=== PATIENT | female | born 1940 | race Caucasian/White ===

== ENCOUNTER 2024-08-27 13:57 | Outpatient (OUT) | payer MEDICARE, BC, SELFPAY ==
--- OUTSIDE RECORDS SUMMARY | 2024-06-05 09:15 | XMS_ITS | Continuity of Care Document ---
Author Organization [facility] Address [address] [place] [address] Phone Care Team Providers Care Special Certificate Dictator Name Role Phone Ravi Dewey MD Unavailable [...] Yes / No Effective Date File Name No Information Encounters Encounter Description Practice Location Reason(s) For Visit Diagnoses Date Provider Providers Copied on Encounter Established Patient Visit [facility], [address] [place] [address], [id number], tel:[phone] DANYA Davalos Low back pain, unspecifiedPa in in right hipTrochanter ic bursitis, right hip May- 5 Maco Rodrigues. [address] [place] [address], [id number], [place]. tel:[phone] Referring Provider: Ravi Moody, [address] [place] [address], [id number]. tel:[phone] Established Patient Visit Detailed [facility], [address] [place] [address], [id number], tel:[phone] DANYA Davalos Lumbar painTrochante ayana bursitis, right hip Mar- 4 Maco Rodrigues. [address] [place] [address], [id number], [place]. tel:[phone] Referring Provider: Ravi Moody, [address] [place] [address], [address]. tel:[phone] Established Patient Visit Detailed [facility], [address] [place] [address], [id number], tel:[phone] DANYA Davalos Low back painTrochante ayana bursitis, right hipLow back pain, unspecified Sep-0 4 Maco Rodrigues. [address] [place] [address], [address] [place] [address], . tel:[phone] Referring Provider: Ravi Moody, [address] [place] [address], [address]. tel:[phone] Established Patient Visit Detailed [facility], [address] [place] [address], [address] [place] [address], tel:[phone] [facility] Lumbar painDietary counseling and surveillanceE ssential (primary) hypertensionT rochanteric bursitis, right hipLow back pain Jul- 4 Maco Rodrigues. [address] [place] [address], [address] [place] [address], . tel:[phone] Referring Provider: Saúl Saravia, [address] [place] [address], [address]. tel:[phone] [facility], [address] [place] [address], [address] [place] [address], tel:[phone] [facility] No Information 4 Efren Hays. [address] [place] [address], [address] [place] [address], . tel:[phone] Referring Provider: Ravi Moody, [address] [place] [address], [address]. tel:[phone] Established Patient Visit Detailed [facility], [address] [place] [address], [address] [place] [address], tel:[phone] [facility] Lumbar painDietary counseling and surveillanceE ssential (primary) hypertension Fe- 4 Maco Rodrigues. [address] [place] [address], [address] [place] [address], . tel:[phone] Referring Provider: Ravi Moody, [address] [place] [address], [id number]. tel:[phone] [facility], [address] [place] [address], [address] [place] [address], tel:[phone] [facility] No Information 4 Ayanna Hernán. [address] [place] [address], [address] [place] [address], . tel:[phone] Referring Provider: Attila Saravia, [address] [place] [address], [address]. tel:[phone] Established Patient Visit Detailed [facility], [address] [place] [address], [address] [place] [address], tel:[phone] [facility] Dietary counseling and surveillanceP ain in right hipEssential (primary) hypertensionL ow back painDegenerat matthew disc disease, lumbar 4 Don Aiken. [address] [place] [address], [address] [place] [address], . tel:[phone] Referring Provider: Attila Saravia, [address] [place] [address], [id number]. tel:[phone] [facility], [address] [place] [address], [address] [place] [address], tel:[phone] [facility] Closed nondisplaced fracture of fifth metatarsal bone of right foot with routine healing 3 Steven Noyola. [address] [place] [address], [address] [place] [address], . tel:[phone] Referring Provider: Dennys Sanabria, [address] [place] [address], [id number]. tel:[phone] [facility], [address] [place] [address], [address] [place] [address], tel:[phone] [facility] Nondisplaced fracture of fifth metatarsal bone, right foot, subsequent encounter for fracture with routine healing 3 Steven Noyola. [address] [place] [address], [address] [place] [address], [place]. tel:[phone] Referring Provider: Dennys Sanabria, [address] [place] [address], [address]. 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 [address] [place] [address], [id number], [place]. tel:[phone] Referring Provider: Dennys Sanabria, [address] [place] [address], [address]. 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 [address] [place] [address], [facility], . tel:[phone] Referring Provider: Марина Sorto, [address] [place] [address], [address]. 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 [address] [place] [address], [facility], . tel:[phone] Referring Provider: Марина Sorto, [address] [place] [address], [address]. 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 [address] [place] [address], [facility], . tel:[phone] Referring Provider: Марина Sorto, [address] [place] [address], [address]. 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 [address] [place] [address], [facility], . tel:[phone] Referring Provider: Марина Sorto, [address] [place] [address], [address]. 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 [address] [place] [address], [id number], [place]. tel:[phone] Referring Provider: Марина Sorto, [address] [place] [address], [address]. 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 [address] [place] [address], [id number], [place]. tel:[phone] Referring Provider: Joel Panchal, [address] [place] [address], [address]. tel:[phone] [facility], [address] [place] [address], [address] [place] [address], tel:[phone] DANYA Davalos Posterior tibial tendinitis, right leg 2 Ayah Maldonado. [address] [place] [address], [address] [place] [address], . tel:[phone] Referring Provider: Joel Panchal, [address] [place] [address], [address]. tel:[phone] New Patient Office Visit Detailed [facility], [address] [place] [address], [address] [place] [address], tel:[phone] DANYA [place] Dietary counseling and surveillanceE ssential (primary) hypertensionB ilateral ankle pain, unspecified chronicityPos terior tibialis tendinitis of both lower extremitiesPo sterior tibial tendinitis, left leg 2 Ayah Maldonado. [address] [place] [address], [id number], . tel:[phone] Referring Provider: Joel Panchal, [address] [place] [address], [address]. tel:[phone] Family History Family Member Type Diagnosis Age At Onset No Information Payers Payer name Insurance type Covered libertarian ID Authoriza tishira(s) Medicare [place] MB [id number] [place] - [id number] Social History Type Description Quantity Date Captured Comments Sex Female Smoking Status No Information Vital Signs Date / Time: Height Weight [...] Plan Of Treatment Date Type Action Status Appointment Erica Lopez BOOKED Future Order: Radiology Order X- Ray Lumbar Spine (5) ([id number]), Sent on: Sent Future Order: Radiology Order MR I Lumbar Spine W/O Contrast ([id number]), Sent on: Sent Future Order: Radiology Order X- Ray Pelvis And Lateral Hip ([id number]), Sent on: Sent Future Order: Radiology Order X- Ray Foot (3) ([id number]), Sent on: Sent Future Order: Radiology Order X- Ray Foot (3) ([id number]), Sent on: Sent Future Order: Radiology Order X- Ray Foot (3) ([id number]), Sent on: Sent Future Order: Radiology Order X- Ray Pelvis (1-2) ([id number]), Sent on: Sent Future Order: Radiology Order X- Ray Lumbar Spine (2) (3) ([id number]), Sent on: Sent Future Order: Radiology Order X- Ray Ankle (3) Standing ([id number]), Sent on: Sent Future Order: Radiology Order X- Ray Foot (3) Standing ([id number]), Sent on: Sent History Of Present Illness [...] No Information Instructions Date Instruction Additional Infor mation No Information Assessments Type Assessment Date assessment Low back pain, unspecified assessment Pain in right hip assessment Trochanteric bursitis, right hip Patient Care Teams Name Effective Dates (start - stop) Status Members No Information
--- OUTSIDE RECORDS SUMMARY | 2024-08-27 14:00 | XMS_ITS | Clinical Summary ---
Author Organization [facility] Address [address] [place] [address] Phone Care Team Providers Care Nozzle Cement Sprayer Helper Name Role Phone Leanna Quiroz MD Primary Care Provider + Allergies Active Allergy Reactions Criticality Noted Date Comments Morphine Dizziness,Nausea/vomiting 07/25/2024 Medications busPIRone (Buspar) 10 mg tablet Take 1 tablet (10 mg) by mouth 2 times a day. Active losartan (Cozaar) 50 mg tablet Take 1 tablet (50 mg) by mouth 2 times a day. Active levothyroxine (Synthroid, Levoxyl) 100 mcg tablet Take 1 tablet (100 mcg) by mouth early in the morning.. Take on an empty stomach at the same time each day, either 30 to 60 minutes prior to breakfast Active NIFEdipine ER (NIFEdipine XL) 60 mg 24 hr tablet Take 1 tablet (60 mg) by mouth once daily in the morning. Take before meals. Do not crush, chew, or split. Active PARoxetine (Paxil) 20 mg tablet Take 1 tablet (20 mg) by mouth once daily in the morning. Active propranolol XL (Innopran XL) 120 mg 24 hr capsule Take 1 capsule (120 mg) by mouth 2 times a day. Do not crush, chew, or split. Active acetaminophen (Tylenol) 325 mg tablet Take by mouth every 6 hours if needed for mild pain (1 - 3). Active vit C/E/Zn/coppr/elsie tein/zeaxan (PRESERVISION AREDS-2 ORAL) Take by mouth. Active ascorbic acid (Vitamin C) 500 mg tablet Take 1 tablet (500 mg) by mouth once daily. Active cholecalciferol (Vitamin D3) 25 mcg (1,000 units) tablet Take 1 tablet (25 mcg) by mouth once daily. Active polyethylene glycol (Glycolax, Miralax) 17 gram packet Take 17 g by mouth once daily. Active multivitamin tablet Take 1 tablet by mouth once daily. Active HYDROcodone-germán taminophen ([place]) 5-325 mg tablet Take 1 tablet by mouth 2 times a day as needed for severe pain (7 - 10). Active gabapentin (Neurontin) 100 mg capsuleIndicati ons:Right sided sciatica Take 1 capsule (100 mg) by mouth 2 times a day. 60 capsule 1 5 01/26/20 25 Active gabapentin (Neurontin) 100 mg capsuleIndicati ons:Right sided sciatica Take 2 capsules (200 mg) by mouth 3 times a day. 180 capsule 5 5 02/03/20 25 Active diazePAM (Valium) 10 mg tabletIndicatio ns:Anxiety Take 1 tablet (10 mg) by mouth once daily. 90 tablet 5 Active diazePAM (Valium) 10 mg tablet Take 1 tablet (10 mg) by mouth once daily. 08/27/19 25 Discontinu ed(Reorder ) Active Problems Problem Noted Date Diagnosed Date Primary hypertension 07/25/2024 Anxiety 07/25/2024 Grief reaction 07/25/2024 Postoperative hypothyroidism 07/25/2024 Motion sickness 07/25/2024 Encounters Date Type Department Care Team Description 08/26/2024 Orders Only [facility] [address] [phone] Leanna Quiroz MD 08/26/2024 Orders Only [facility] [address] [phone] Chelle Youssef MA Anxiety (Primary Dx) 08/06/2024 Orders Only [facility] [address] [phone] Michelle Anaya MA Right sided sciatica 07/29/2024 Orders Only [facility] [address] [place] [phone] Leanna Quiroz MD Right sided sciatica (Primary Dx) 07/25/2024 9:30 AM EDT Office Visit [facility] [address] [phone] Leanna Quiroz MD Right sided sciatica (Primary Dx); Primary hypertension; Postoperative hypothyroidism; Anxiety; Grief reaction; Hyperglycemia; Right hip pain; Medication management 07/25/2024 Travel from Last 3 Months Social History Tobacco Use Types Packs/Day Years Used Date Smoking Tobacco: Never Smokeless Tobacco: Never Alcohol Use Standard Drinks/Week Comments Never 0 (1 standard drink = 0.6 oz pur e alcohol) PHQ-2 Answer Date Recorded Patient Health Questionnaire-2 Score 3 07/25/2024 Comments No Sex and Gender Information Value Date Recorded Sex Assigned at Not on file Legal Sex Female 11:21 AM EST Gender Identity Not on file Sexual Orientation Not on file Last Filed Vital Signs Vital Sign Reading Time Taken Comments Blood Pressure 122/66 07/25/2024 9:42 AM EDT Pulse 64 07/25/2024 9:42 AM EDT Temperature 36.3 C (97.4 F) 07/25/2024 9:42 AM EDT Respiratory Rate 16 07/25/2024 9:42 AM EDT Oxygen Saturation 94% 07/25/2024 9:42 AM EDT Inhaled Oxygen Concentration - - Weight 77.1 kg (170 lb) 07/25/2024 9:42 AM EDT Height 156.2 cm (5' 1.5 ) 07/25/2024 9:42 AM EDT Body Mass Index 31.6 07/25/2024 9:42 AM EDT Plan of Treatment Upcoming Encounters Date Type Department Care Team (Late st Contact Info) Description 11/03/2024 11:15 AM EDT Office Visit [facility] [address] [phone] Leanna Quiroz MD [address] [place] [phone] Health Maintenance Due Date Last Done Comments Bone Density Scan 1940 Medicare Annual Wellness Vis it (AWV) 1940 DTaP/Tdap/Td Vaccines (1 - Tdap) 1960 Pneumococcal Vaccine (1 of 1 - PCV) 1988 Zoster Vaccines (1 of 2) 1988 RSV High Risk: (Elderly (60+ ) or Population) (1 - 1-dose 75+ series) 2013 COVID-19 Vaccine ( - 2023-2 5 season) 2023 Influenza Vaccine (Season Ended) 2024 Diabetes: Hemoglobin A1C 07/25/2025 07/25/2024 TSH Level 07/25/2025 07/25/2024 Lipid Panel 07/25/2029 07/25/2024 HIB Vaccines Aged Out No longer eligi ble based on patient's age to complete this topic HPV Vaccines Aged Out No longer eligi ble based on patient's age to complete this topic Hepatitis A Vaccines Aged Out No long er eligible based on patient's age to complete this topic Hepatitis B Vaccines Aged Out No long er eligible based on patient's age to complete this topic IPV Vaccines Aged Out No longer eligi ble based on patient's age to complete this topic Meningococcal Vaccine Aged Out No gunjan flavio eligible based on patient's age to complete this topic Rotavirus Vaccines Aged Out No longer eligible based on patient's age to complete this topic Procedures Procedure Name Priority Date/Time Associated Diagnosis Comments THYROXINE, FREE Routine 07/25/2024 12:25 PM EDT Primary hypertension Postoperative hypothyroidism Anxiety Grief reaction Right sided sciatica TSH Routine 07/25/2024 12:25 PM EDT Primary hypertension Postoperative hypothyroidism Anxiety Grief reaction Right sided sciatica LIPID PANEL Routine 07/25/2024 12:25 PM EDT Primary hypertension Postoperative hypothyroidism Anxiety Grief reaction Right sided sciatica HEMOGLOBIN A1C Routine 07/25/2024 12:25 PM EDT Primary hypertension Postoperative hypothyroidism Anxiety Grief reaction Right sided sciatica Hyperglycemia CBC WITH AUTO DIFFERENTIAL Routine 07/25/2024 12:25 PM EDT Primary hypertension Postoperative hypothyroidism Anxiety Grief reaction Right sided sciatica COMPREHENSIVE METABOLIC PANEL Routine 07/25/2024 12:25 PM EDT Primary hypertension Postoperative hypothyroidism Anxiety Grief reaction Right sided sciatica DRUG SCREEN, URINE WITH REFLEX TO CONFIRMATION Routine 07/25/2024 12:22 PM EDT Right sided sciatica Medication management from Last 3 Months Results * (ABNORMAL) CBC and Auto Differential (07/25/2024 12:25 PM EDT) WHITE BLOOD CELL COUNT 8.5 3.8 - 10.8 Thousand/ uL [facility] RED BLOOD CELL COUNT 3.99 3.80 - 5.10 Million/u L [facility] HEMOGLOBIN 13.2 11.7 - 15.5 g/dL [facility] HEMATOCRIT 40.4 35.0 - 45.0 % [facility] MCV 101.3(H) 80.0 - 100.0 fL [facility] MCH 33.1(H) 27.0 - 33.0 pg [facility] MCHC 32.7 32.0 - 36.0 g/dL [facility] Comment: For adults, a slight decrease in the calculated MCHC value (in the range of 30 to 32 g/dL) is most likely not clinically significant; however, it should be interpreted with caution in correlation with other red cell parameters and the patient's clinical condition. RDW 13.0 11.0 - 15.0 % [facility] PLATELET COUNT 378 140 - 400 Thousand/ uL [facility] MPV 9.9 7.5 - 12.5 fL [facility] ABSOLUTE NEUTROPHILS 5,491 1,500 - 7,800 cells/uL [facility] ABSOLUTE LYMPHOCYTES 2,074 850 - 3,900 cells/uL [facility] ABSOLUTE MONOCYTES 816 200 - 950 cells/uL [facility] ABSOLUTE EOSINOPHILS 102 15 - 500 cells/uL [facility] ABSOLUTE BASOPHILS 17 0 - 200 cells/uL [facility] NEUTROPHILS 64.6 % [facility] LYMPHOCYTES 24.4 % [facility] MONOCYTES 9.6 % [facility] EOSINOPHILS 1.2 % [facility] BASOPHILS 0.2 % [facility] Blood Venous blood specimen / Unknown 07/25/2024 12:25 PM EDT 07/25/2024 12:26 PM EDT [facility] [facility] - 07/26/2024 7:53 AM EDT FASTING:NO FASTING: NO Leanna Quiroz MD LAB BLOOD ORDERABLES Fin al Result Performing Organization Address [facility] Co de Phone Number [facility] [address], [address] [place] [phone] * Thyroid Stimulating Hormone (07/25/2024 12:25 PM EDT) TSH 0.61 0.40 - 4.50 mIU/L [facility] Blood Venous blood specimen / Unknown 07/25/2024 12:25 PM EDT 07/25/2024 12:26 PM EDT [facility] [employer] [facility] - 07/26/2024 7:53 AM EDT FASTING:NO FASTING: NO Leanna Quiroz MD LAB BLOOD ORDERABLES Fin al Result [facility] [address], [address] [place] [phone] * Thyroxine, Free (07/25/2024 12:25 PM EDT) T4, FREE 1.2 0.8 - 1.8 ng/dL [facility] Blood Venous blood specimen / Unknown 07/25/2024 12:25 PM EDT 07/25/2024 12:26 PM EDT [facility] - 07/26/2024 7:53 AM EDT FASTING:NO FASTING: NO Leanna Quiroz MD LAB BLOOD ORDERABLES Fin al Result [facility] [address] [place] [address], [address] [place] [phone] * (ABNORMAL) Hemoglobin A1C (07/25/2024 12:25 PM EDT) HEMOGLOBIN A1c 5.9(H) <5.7 % [facility] Comment: For someone without known diabetes, a hemoglobin A1c value between 5.7% and 6.4% is consistent with prediabetes and should be confirmed with a follow-up test. For someone with known diabetes, a value <7% indicates that their diabetes is well controlled. A1c targets should be individualized based on duration of diabetes, age, comorbid conditions, and other considerations. This assay result is consistent with an increased risk of diabetes. Currently, no consensus exists regarding use of hemoglobin A1c for diagnosis of diabetes for children. eAG (mg/dL) 123 mg/dL [facility] eAG (mmol/L) 6.8 mmol/L [facility] Blood Venous blood specimen / Unknown 07/25/2024 12:25 PM EDT 07/25/2024 12:26 PM EDT [facility] - 07/26/2024 7:53 AM EDT FASTING:NO FASTING: NO Leanna Quiroz MD LAB BLOOD ORDERABLES Fin al Result [facility] [employer] ([email or web address])[facility] [address], [address] [place] [address] * (ABNORMAL) Lipid Panel (07/25/2024 12:25 PM EDT) CHOLESTEROL, TOTAL 178 <200 mg/dL [facility] HDL CHOLESTEROL 40(L) > OR = 50 mg/dL [facility] TRIGLYCERIDES 283(H) <150 mg/dL [facility] Comment: If a non-fasting specimen was collected, consider repeat triglyceride testing on a fasting specimen if clinically indicated. Kiesha et al. J. of Clin. Lipidol. 2015;9:129-169. LDL-CHOLESTEROL 98 mg/dL (calc) [facility] Comment: Reference range: <100 Desirable range <100 mg/dL for primary prevention; <70 mg/dL for patients with CHD or diabetic patients with > or = 2 CHD risk factors. LDL-C is now calculated using the New calculation, which is a validated novel method providing better accuracy than the Friedewald equation in the estimation of LDL-C. Jesse SS et al. NINFA. 2013;310(19): 7143-0039 (http://education.[employer]/faq/RSW285) CHOL/HDLC RATIO 4.5 <5.0 (calc) [facility] NON HDL CHOLESTEROL 138(H) <130 mg/dL (calc) [facility] Comment: For patients with diabetes plus 1 major ASCVD risk factor, treating to a non-HDL-C goal of <100 mg/dL (LDL-C of <70 mg/dL) is considered a therapeutic option. Blood Venous blood specimen / Unknown 07/25/2024 12:25 PM EDT 07/25/2024 12:26 PM EDT Narrative [facility] - 07/26/2024 7:53 AM EDT FASTING:NO FASTING: NO us Leanna Quiroz MD LAB BLOOD ORDERABLES Fin al Result [address], [address] [place] [phone] * (ABNORMAL) Comprehensive Metabolic Panel (07/25/2024 12:25 PM EDT) [facility] GLUCOSE 104 65 - 139 mg/dL [facility] Comment: Non-fasting reference interval For someone without known diabetes, a glucose value between 100 and 125 mg/dL is consistent with prediabetes and should be confirmed with a follow-up test. UREA NITROGEN (BUN) 22 7 - 25 mg/dL [facility] CREATININE 1.00(H) 0.60 - 0.95 mg/dL [facility] EGFR 55(L) > OR = 60 mL/min/1. 73m2 [facility] SODIUM 138 135 - 146 mmol/L [facility] POTASSIUM 5.1 3.5 - 5.3 mmol/L [facility] CHLORIDE 100 98 - 110 mmol/L [facility] CARBON DIOXIDE 31 20 - 32 mmol/L [facility] ELECTROLYTE BALANCE 7 7 - 17 mmol/L (calc) [facility] CALCIUM 10.1 8.6 - 10.4 mg/dL [facility] PROTEIN, TOTAL 6.7 6.1 - 8.1 g/dL [facility] ALBUMIN 4.4 3.6 - 5.1 g/dL [facility] BILIRUBIN, TOTAL 0.4 0.2 - 1.2 mg/dL [facility] ALKALINE PHOSPHATASE 87 37 - 153 U/L [facility] AST 17 10 - 35 U/L [facility] ALT 23 6 - 29 U/L [facility] Blood Venous blood specimen / Unknown 07/25/2024 12:25 PM EDT 07/25/2024 12:26 PM EDT Narrative [facility] - 07/26/2024 7:53 AM EDT FASTING:NO FASTING: NO us Leanna Quiroz MD LAB BLOOD ORDERABLES Fin al Result [facility] [address] [facility], [address] [place] [phone] * (ABNORMAL) Drug Screen, Urine With Reflex to Confirmation (07/25/2024 12:22 PM EDT) Fentanyl NEGATIVE <0.5 ng/mL [facility] Amphetamines NEGATIVE <500 ng/mL [facility] Barbiturates NEGATIVE <300 ng/mL [facility] Benzodiazepines POSITIVE(A ) <100 ng/mL [facility] Alphahydroxyalprazolam NEGATIVE <25 ng/mL [facility] Alphahydroxymidazolam NEGATIVE <50 ng/mL [facility] Alphahydroxytriazolam NEGATIVE <50 ng/mL [facility] Aminoclonazepam NEGATIVE <25 ng/mL [facility] Hydroxyethylflurazepam NEGATIVE <50 ng/mL [facility] Lorazepam NEGATIVE <50 ng/mL [facility] Nordiazepam 460(H) <50 ng/mL [facility] Oxazepam 599(H) <50 ng/mL [facility] Temazepam 653(H) <50 ng/mL [facility] Benzodiazepines Comments [facility] Comment:See Benzodiazepines Notes, LDT Notes Cocaine Metabolite NEGATIVE <150 ng/mL [facility] Marijuana Metabolite NEGATIVE <20 ng/mL [facility] Methadone Metabolite NEGATIVE <100 ng/mL [facility] Opiates POSITIVE(A ) <100 ng/mL [facility] Codeine NEGATIVE <50 ng/mL [facility] Hydrocodone 146(H) <50 ng/mL [facility] Hydromorphone NEGATIVE <50 ng/mL [facility] Morphine NEGATIVE <50 ng/mL [facility] Norhydrocodone 301(H) <50 ng/mL [facility] Opiates Comments [facility] Comment:See Opiates Notes, L DT Notes Oxycodone NEGATIVE <100 ng/mL [facility] Phencyclidine NEGATIVE <25 ng/mL [facility] Creatinine 30.8 > or = 20.0 mg/dL [facility] pH 6.8 4.5 - 9.0 [facility] Oxidant NEGATIVE <200 mcg/mL [facility] Notes and Comments Q [facility] Comment: This drug testing is for medical treatment only. Analysis was performed as non-forensic testing and these results should be used only by healthcare providers to render diagnosis or treatment, or to monitor progress of medical conditions. Benzodiazepines Notes: Nordiazepam, Temazepam, Oxazepam detected is consistent with the use of the drug Diazepam. Temazepam can be a prescribed drug. Nordiazepam is also a metabolite of Chlordiazepoxide and Clorazepate. Oxazepam can be a prescribed drug and is also a metabolite of Chlordiazepoxide, Clorazepate and Temazepam. Nordiazepam, Oxazepam detected is consistent with the use of the drug Chlordiazepoxide. Nordiazepam is a also metabolite of Diazepam and Clorazepate. Oxazepam can be a prescribed drug and is also a metabolite of Diazepam and Temazepam. Temazepam, Oxazepam detected is consistent with the use of the drug Temazepam. Temazepam can be a prescribed drug and is also a metabolite of Diazepam. Oxazepam can be a prescribed drug and also a metabolite of Diazepam, Chlordiazepoxide, Clorazepate and Temazepam. Oxazepam detected is consistent with the use of the drug Oxazepam. Oxazepam can be a prescribed drug and is also a metabolite of Diazepam, Chlordiazepoxide, Clorazepate and Temazepam. Opiates Notes: Hydrocodone, Norhydrocodone detected is consistent with the use of the drug Hydrocodone. The metabolite Hydromorphone is not present at or above the cutoff. LDT Notes: Confirmation tests were developed and their analytical performance characteristics have been determined by [employer]. It has not been cleared or approved by the FDA. This assay has been validated pursuant to the CLIA regulations and is used for clinical purposes. Healthcare Providers needing Interpretation assistance, please contact us at [phone] ( ) M-F, 8am to 10pm EST Urine Urine specimen / Unknown 07/25/2024 12:22 PM EDT 07/26/2024 2:31 AM EDT us Leanna Quiroz MD LAB URINE ORDERABLES [facility] al Result [facility] [employer] [facility], [address] [place] [phone] from Last 3 Months Insurance MEDICARE PART A AND B MEDICARE PART A AND B Care Teams Nozzle Cement Sprayer Helper Relationship Specialty Start Date End Date Leanna Quiroz MD [address] [phone] PCP - General Family Medicine 05/19/24
--- OUTSIDE RECORDS SUMMARY | 2024-08-27 14:01 | XMS_ITS | Encounter Summary ---
Author Organization [facility] Address [address] [place] [address] Phone Care Team Providers Care Hop Farm Worker Name Role Phone Leanna Quiroz MD Primary Care Provider + Encounter Details Date Type Department Care Team (Late st Contact Info) Description 08/26/2024 Orders Only [facility] [address] [phone] Chelle Youssef MA Anxiety (Primary Dx) Social History Tobacco Use Types Packs/Day Years [...] on file Sexual Orientation Not on file documented as of this encounter Plan of Treatment Upcoming Encounters Date Type Department Care Team (Late st Contact Info) Description 11/03/2024 11:15 AM EDT Office Visit [facility] [address] [phone] Leanna Quiroz MD [address] [phone] documented as of this encounter Visit Diagnoses Diagnosis Anxiety- Primary Anxiety state, unspecified documented in this encounter Additional Health Concerns Assessment Noted Time A fall risk assessment has been complete d for the patient 07/25/2024 9:37 AM EDT documented as of this encounter Care Teams Hop Farm Worker Relationship Specialty Start Date End Date Leanna Quiroz MD [address] [phone] PCP - General Family Medicine 05/19/24 documented as of this encounter
--- OUTSIDE RECORDS SUMMARY | 2024-08-27 14:01 | XMS_ITS | Encounter Summary ---
Author Organization [facility] Address [address] [place] [address] Phone Care Team Providers Care Cyber Security Systems Engineer Name Role Phone Leanna Quiroz MD Primary Care Provider + Encounter Details Date Type Department Care Team (Late st Contact Info) Description 08/26/2024 Orders Only [facility] [address] [place] [phone] Leanna Quiroz MD [address] [place] [phone] Social History Tobacco Use Types Packs/Day Years [...] Description 11/03/2024 11:15 AM EDT Office Visit [facility] [address] [place] [phone] Leanna Quiroz MD [address] [place] [phone] documented as of this encounter Visit Diagnoses Not on filedocumented in this encounter Additional Health Concerns Assessment Noted Time A fall risk assessment has been complete d for the patient 07/25/2024 9:37 AM EDT documented as of this encounter Care Teams Cyber Security Systems Engineer Relationship Specialty Start Date End Date Leanna Quiroz MD [address] [phone] PCP - General Family Medicine 05/19/24 documented as of this encounter
--- OUTSIDE RECORDS SUMMARY | 2024-08-27 14:01 | XMS_ITS | Encounter Summary ---
Author Organization [facility] Address [address] [place] [address] Phone Care Team Providers Care V Belt Inspector Name Role Phone Leanna Quiroz MD Primary Care Provider + Encounter Details Date Type Department Care Team (Late st Contact Info) Description 08/06/2024 Orders Only [facility] Medical Office Building [address] [phone] Michelle Anaya MA Right sided sciatica Social History Tobacco Use Types Packs/Day Years [...] on file Sexual Orientation Not on file COVID-19 Exposure Response Date Recorded In the last 10 days, have yo u been in contact with someone who was confirmed or suspected to have Coronavirus/COVID-19? No / Unsure 07/25/2024 9:21 AM EDT documented as of this encounter Plan of Treatment Upcoming Encounters Date Type Department Care Team (Late Contact Info) Description 11/03/2024 11:15 AM EDT Office Visit [facility] Medical Office Building [address] [phone] Leanna Quiroz MD [address] [place] [phone] documented as of this encounter Visit Diagnoses Diagnosis Right sided sciatica Sciatica documented in this encounter Additional Health Concerns Assessment Noted Time A fall risk assessment has been complete d for the patient 07/25/2024 9:37 AM EDT documented as of this encounter Care Teams V Belt Inspector Relationship Specialty Start Date End Date Leanna Quiroz MD [address] [address] PCP - General Family Medicine 05/19/24 documented as of this encounter
--- NOTE | 2024-08-27 15:12 | P.CN_ITS ---
Consult Note: HPI Data of Consult Patient: new to practice Consult date: 08/27/24 Requesting Physician: Tori Lai MD Primary Care Provider: Non-Staff Physician, Family Provider: Leanna Quiroz Consult Narrative Reason for consult: establish care Narrative: Erica Lopez a pleasant 84 year old female presents for evaluation of low back, right SIJ, and RLE pain. Pt notes hx of lumbar stenosis, lumbar ddd, and lumbar spondylosis however we have no available xrays or MRIs of the lumbar spine. She recently moved from [place] to live with her Son. She was following with Dr Dewey at [facility], she did not find benefit to right GTB injections or ESIs with their office per pt and son Teresa. Pain today 8/10 increasing to 10/10 with standing walking and activity. denies falls/injury. She has established with Dr Quiroz at for PCP care locally. pt reports she had increased pain with PT, cannot tolerate HEP or PT. cc:: CC: Tori Lai MD Review of Systems ROS Status of ROS 10 or more systems reviewed and unremark able except as noted in history and below Musculoskeletal Reports: back pain, extremity pain and joint pain Exam Constitutional Documenting provider has reviewed patient's vital signs: yes Common normals: no apparent distress, oriented x3, healthy appearing, alert and well nourished General appearance: cooperative HENMT Common normals: normocephalic, hearing grossly normal bilaterally and moist oral mucous membranes Head and scalp: normocephalic Eye Common normals: PERRL Pupil: PERRL Neck & C-Spine Common normals: full ROM General: normal visual inspection Chest Common normals: inspection of chest normal Respiratory Common normals: normal respiratory effort, no retractions and no use of accessory muscles Back & Pelvis Lumbar spine/lower back: ROM limited, pain with ROM and straight leg raise negative bilaterally Sacroiliac joints: SI joint(s) abnormal Other: right sij positive madalyn(patricks), gaenslens, thigh thrust, compression test Extremity Other: mild nonpitting edema noted to BLE Neuro Common normals: oriented x3 Sensorium/orientation: alert Gait (neuro): assistive device used walker Psych Common normals: mental status grossly normal, thought process normal, cooperative, affect normal, speech normal and activity/motor behavior normal Speech: normal speech Thought process: normal thought process Results Additional Findings Additional findings: If on a controlled substance or opioids, I have checked an OARRS report on this patient and there are no aberrancies noted in the prescribing history.??If on a controlled substance or opioid a drug screen was completed and reviewed within the last year, and if there has not been a drug screen completed we ordered one today to monitor higher risk, state monitored pain medication use. As part of providing excellent, safe, comprehensive care, the following was completed at our patient's visit: 1. A medication reconciliation and review to ensure accurate knowledge of current/active medications, including asking our patients to inform us about any cgzy-ews-[id number] medications or herbal remedies/nutritional supplemen ts/alternative remedies. 2. A review to specifically ensure our patients have had annual screening for screening for depression, screening for tobacco use, and screening for unhealthy alcohol use. For concerning screenings had a discussion with the patient, provided patient education, and recommended follow-up with primary care provider when appropriate. If patient noted with a risk of falling, they received education on strength, gait, and balance training to prevent future risk of falling. Portions of this note may have been carried over from the previous visit and updated as appropriate. Please note this office utilizes paper charting in addition to the electronic medical record. A list of current medications, vitals, and PMH is available there as the clinical staff outside of myself do not have access to [employer] charting during the clinic day operations. As part of providing quality comprehensive care the current medications, vitals, and PMH were reviewed in the paper chart. Assessment and Plan Assessment and Plan (1) Sacroiliitis: Assessment and Plan: The patient has had over 3 months of moderate to severe low back and right SIJ pain with functional impairment and inadequate response to conservative care including NSAIDS (unless there are contraindication such as concurrent blood thinners), multiple oral or topical pain medications, and home exercise program/physical therapy.? Patient has completed >6 weeks of guided home exercise program and/or formal physical therapy program without relief of their symptoms.? The Oswestry Disability Index was completed, and the patient scored a 48%.? The patient noted the following:?? moderate to severe pain impacting ADLs, sitting, standing, walking, sleep, social life, travel We discussed the risks and benefits of the procedure with the patient, and we are NOT planning on using sedation as outlined in the guidelines from Medicare unless there is a documented reason that sedation would be strongly recommended.??The procedure will be completed with fluoroscopic guidance.? (2) Lumbar stenosis with neurogenic claudication: (3) Lumbar spondylosis: Plan 84 year old female with persistent right SIJ pain unresponsive to heat, ice, tylenol, nsaids, and gabapentin. will request imaging from prior office including lumbar xrays and MRIs. plan to proceed with right SIJ injection under fluoroscopy for sacroilitis once imaging reviewed. will f/u 2 weeks after injection. can consider TFESI for lumbar stenosis with NC.
== END 2024-08-27 13:58 | disposition home or self-care (01) ==
LOC: PM 13:59
PROVIDERS: Visit Provider Anesthesiology
DX: M46.1 Sacroiliitis, not elsewhere classified (principal); M48.062 Spinal stenosis, lumbar region with neurogenic claudication; M47.816 Spondylosis without myelopathy or radiculopathy, lumbar region
CPT/HCPCS: G0463

== ENCOUNTER 2024-09-08 10:30 | Day surgery (SDC) | payer MEDICARE, BC, SELFPAY ==
--- OUTSIDE RECORDS SUMMARY | 2024-09-08 10:32 | XMS_ITS | Encounter Summary ---
Author Organization [facility] Address [address] [place] [address] Phone Care Team Providers Care Sales Outfitter Name Role Phone Leanna Quiroz MD Primary Care Provider + Encounter Details Date Type Department Care Team (Late st Contact Info) Description 08/26/2024 Orders Only [facility] Medical Office Building [address] [phone] Chelle Youssef MA Anxiety (Primary Dx) Social [...] Description 11/03/2024 11:15 AM EDT Office Visit [facility] Medical Office Building [address] [phone] Leanna Quiroz MD [address] [phone] documented as of this encounter Visit Diagnoses Diagnosis Anxiety- Primary Anxiety state, unspecified documented in this encounter Additional Health Concerns Assessment Noted Time A fall risk assessment has been complete d for the patient 07/25/2024 9:37 AM EDT documented as of this encounter Care Teams Sales Outfitter Relationship Specialty Start Date End Date Leanna Quiroz MD [address] [phone] PCP - General Family Medicine 05/19/24 documented as of this encounter
--- OUTSIDE RECORDS SUMMARY | 2024-09-08 10:32 | XMS_ITS | Encounter Summary ---
Author Organization [facility] Address [address] [place] [address] Phone Care Team Providers Care Oven Tender Name Role Phone Leanna Quiroz MD Primary Care Provider + Encounter Details Date Type Department Care Team (Late st Contact Info) Description 08/26/2024 Orders Only [facility] Medical Office Building [address] [place] [phone] Leanna Quiroz MD [address] [place] [phone] Social History Tobacco Use Types Packs/Day Years [...] 11:15 AM EDT Office Visit [facility] Medical Office Building [address] [place] [phone] Leanna Quiroz MD [address] [place] [phone] documented as of this encounter Visit Diagnoses Not on filedocumented in this encounter Additional Health Concerns Assessment Noted Time A fall risk assessment has been complete d for the patient 07/25/2024 9:37 AM EDT documented as of this encounter Care Teams Oven Tender Relationship Specialty Start Date End Date Leanna Quiroz MD [address] [phone] PCP - General Family Medicine 05/19/24 documented as of this encounter
[2024-09-08 10:51] VITALS: BP 137/72; PULSE 74; TEMP 36.4; O2SAT 95
[2024-09-08 11:29] VITALS: BP 168/71; PULSE 66; PULSE 69; O2SAT 93; O2SAT 94
[2024-09-08 11:30] VITALS: BP 123/55
[2024-09-08] MEDS: IOHEXOL 240 MG/ML - 10 ML VIAL 12 MG INJ (11:30)
[2024-09-08] MEDS: BUPIVACAINE HCL 0.25% PF 25 MG/10 ML VIAL 2 ML INJ (11:30)
[2024-09-08] MEDS: LIDOCAINE HCL 2% 400 MG/20 ML MDV INJ (11:30)
[2024-09-08] MEDS: METHYLPREDNISOLONE ACETATE 40 MG/ML VIAL INJ (11:31)
--- NOTE | 2024-09-08 11:33 | W.PM.PROCNOT ---
Date of procedure: 09/08/24 Pre-op diagnosis: Pain due to right sacroiliitis Post-op diagnosis: same as pre-op Procedure: Procedure: Right sacroiliac joint injection Medications: Bupivacaine 0.25% 4cc, depomedrol 40mg After informed consent was obtained, the patient was brought to the medical procedure unit and placed in the prone position, when a timeout was completed verifying correct patient, procedure, site, positioning, implant, and/or special equipment.? The skin overlying the area was prepped and draped in standard sterile fashion using alcohol.? A 25-gauge needle was inserted towards the right sacroiliac joint under direct fluoroscopic imaging.? Needle tip was advanced until the joint was encountered.? We instilled a total of 2 mL of solution.? Postoperatively needles were removed.? The patient tolerated the procedure well without complication.? The patient reported reduction in pain symptoms postoperatively. Anesthesia: Local Surgeon: Tori Lai Pathology: none sent Condition: stable Disposition: no change
== END 2024-09-08 11:38 | disposition home or self-care (01) ==
LOC: SURGOUT 10:30
PROVIDERS: Visit Provider Anesthesiology
DX: M46.1 Sacroiliitis, not elsewhere classified (principal)
CPT/HCPCS: 27096; J0665; J1010; Q9966

== ENCOUNTER 2024-09-24 12:53 | Outpatient (OUT) | payer MEDICARE, BC, SELFPAY ==
--- NOTE | 2024-09-24 13:46 | PM.CN ---
Consult Note: HPI Data of Consult Patient: known to practice within the last 3 years Consult date: 09/24/24 Requesting Physician: Shayy Santana NP Primary Care Provider: Non-Staff Physician, Family Provider: Leanna Quiroz Consult Narrative Reason for consult: right leg/hip pain Narrative: Erica Lopez a pleasant 84 year old female presents for evaluation of low back, right SIJ, and RLE pain. pt has a hx of lumbar ddd, lumbar spondylosis, lumbar stenosis. no imaging available of right hip. pt reports no improvement with right sij injection. pain today 9/10 increasing to 10/10. pt utilizing tylenol, gabapentin 200mg TID, valium 10mg daily with no improvement. cc:: CC: Shayy Santana NP Review of Systems ROS Status of ROS 10 or more systems reviewed and unremarkable except as noted in history and below PFSH [facility] Medical History (Updated 09/04/24 @ 11:28 by Ellen Godfrey) Low back pain ?M54.50 - Low back pain, unspecified (ICD-10) Osteoarthritis ?M19.90 - Unspecified osteoarthritis, unspecified site (ICD-10) Glaucoma ?H40.9 - Unspecified glaucoma (ICD-10) Hypertension ?I10 - Essential (primary) hypertension (ICD-10) Surgical History (Updated 09/04/24 @ 11:28 by Ellen Godfrey) H/O thyroidectomy ?Z98.890 - Other specified postprocedural states (ICD-10) ?Z90.89 - Acquired absence of other organs (ICD-10) H/O: hysterectomy ?Z90.710 - Acquired absence of both cervix and uterus (ICD-10) Meds Home Medications and Allergies Home Medications ?Medication ?Instructions ?Recorded ?Confirmed ?Type acetaminophen 325 mg tablet 325 mg PO Q6H PRN pain 09/04/24 09/08/24 History (Tylenol) ascorbic acid (vitamin C) 1,000 mg 1 g PO DAILY 09/04/24 09/08/24 History tablet (Vitamin C) calcium phosphate,dibasic 77 tab PO DAILY 09/04/24 History mg-vitamin D3 400 unit tablet levothyroxine 100 mcg tablet 100 mcg PO DAILY 09/04/24 09/08/24 History (Synthroid) losartan 50 mg tablet 50 mg PO BID 09/04/24 09/08/24 History motion pills 09/04/24 History multivitamin 1 tab PO DAILY 09/04/24 09/08/24 History nifedipine 60 mg tablet,extended 60 mg PO DAILY 09/04/24 09/08/24 History release paroxetine HCl 20 mg tablet 20 mg PO DAILY 09/04/24 09/08/24 History polyethylene glycol 3350 17 17 g PO DAILY PRN constipation 09/04/24 09/08/24 History gram/dose oral powder (Miralax) propranolol 120 mg capsule,24 120 mg PO BID 09/04/24 09/08/24 History hr,extended release scopolamine HBr 0.4 mg tablet 20 mg PO PRN motion sickness 09/04/24 History Allergies Allergy/AdvReac Type Severity Reaction Status Date / Time morphine Allergy Mild Unknown Verified 09/08/24 10:52 Exam Constitutional Documenting provider has reviewed patient's vital signs: yes Common normals: no apparent distress, oriented x3, healthy appearing, alert and well nourished General appearance: cooperative HENMT Common normals: normocephalic, hearing grossly normal bilaterally and moist oral mucous membranes Head and scalp: normocephalic Eye Common normals: PERRL Pupil: PERRL Neck & C-Spine Common normals: full ROM General: normal visual inspection Chest Common normals: inspection of chest normal Respiratory Common normals: normal respiratory effort, no retractions and no use of accessory muscles Back & Pelvis Lumbar spine/lower back: ROM limited, pain with ROM and straight leg raise positive right Sacroiliac joints: SI joint(s) abnormal Other: decreased sensation to right L4,5,S1 strength 4/5 in RLE and 5/5 in LLE right sij positive madalyn(patricks), gaenslens, thigh thrust, compression test Extremity Right lower extremity: hip joint Other: mild nonpitting edema noted to BLE pain noted with internal and external log roll Neuro Common normals: oriented x3 Sensorium/orientation: alert Gait (neuro): assistive device used other (wheelchair) Psych Common normals: mental status grossly normal, thought process normal, cooperative, affect normal, speech normal and activity/motor behavior normal Speech: normal speech Thought process: normal thought process Results Additional Findings Additional findings: If on a controlled substance or opioids, I have checked an OARRS report on this patient and there are no aberrancies noted in the prescribing history.??If on a controlled substance or opioid a drug screen was completed and reviewed within the last year, and if there has not been a drug screen completed we ordered one today to monitor higher risk, state monitored pain medication use. As part of providing excellent, safe, comprehensive care, the following was completed at our patient's visit: 1. A medication reconciliation and review to ensure accurate knowledge of current/active medications, including asking our patients to inform us about any [id number]-[id number] medications or herbal remedies/nutritional supplements/alternative remedies. 2. A review to specifically ensure our patients have had annual screening for screening for depression, screening for tobacco use, and screening for unhealthy alcohol use. For concerning screenings had a discussion with the patient, provided patient education, and recommended follow-up with primary care provider when appropriate. If patient noted with a risk of falling, they received education on strength, gait, and balance training to prevent future risk of falling. Portions of this note may have been carried over from the previous visit and updated as appropriate. Please note this office utilizes paper charting in addition to the electronic medical record. A list of current medications, vitals, and PMH is available there as the clinical staff outside of myself do not have access to [employer] charting during the clinic day operations. As part of providing quality comprehensive care the current medications, vitals, and PMH were reviewed in the paper chart. Assessment and Plan Assessment and Plan (1) Lumbar stenosis with neurogenic claudication: Assessment and Plan: The patient has had over 3 months of moderate to severe low back and right LE pain with functional impairment and inadequate response to conservative care including NSAIDS (unless there are contraindication such as concurrent blood thinners), multiple oral or topical pain medications, and home exercise program/physical therapy.? Patient has completed >6 weeks of guided home exercise program and/or formal physical therapy program without relief of their symptoms.?? The Oswestry Disability Index was completed, and the patient scored a 68%.? The patient noted the following:?? moderate to severe pain impacting sitting, standing, walking, sleeping, social life, travel We discussed the risks and benefits of the procedure with the patient, and we are NOT planning on using sedation as outlined in the guidelines from Medicare unless there is a documented reason that sedation would be strongly recommended.?? ?The procedure will be completed with fluoroscopic guidance.? (2) Sacroiliitis: (3) Lumbar spondylosis: Plan increase gabapentin 600mg TID as tolerated, risks vs benefits reviewed proceed with right L4-5 L5-S1 TFESI for lumbar stenosis with NC f/u 2 weeks after ARIES
== END 2024-09-24 12:54 | disposition home or self-care (01) ==
PROVIDERS: Visit Provider Nurse Practitioner
DX: M48.062 Spinal stenosis, lumbar region with neurogenic claudication (principal); M46.1 Sacroiliitis, not elsewhere classified; M47.816 Spondylosis without myelopathy or radiculopathy, lumbar region
CPT/HCPCS: G0463

== ENCOUNTER 2024-09-29 09:13 | Day surgery (SDC) | payer MEDICARE, BC, SELFPAY ==
[2024-09-29 10:17] VITALS: BP 172/82; PULSE 65; TEMP 36.5; O2SAT 93
[2024-09-29 10:54] VITALS: PULSE 72; O2SAT 90
[2024-09-29 10:55] VITALS: BP 170/79
[2024-09-29 10:56] VITALS: BP 172/90; PULSE 76; O2SAT 92
[2024-09-29] MEDS: 0.9 % SODIUM CHLORIDE 10 ML SYRINGE - SALINE FLUSH INJ (10:57)
[2024-09-29] MEDS: IOHEXOL 240 MG/ML - 10 ML VIAL INJ (10:58)
[2024-09-29] MEDS: METHYLPREDNISOLONE ACETATE 80 MG/ML VIAL INJ (10:58)
[2024-09-29] MEDS: LIDOCAINE HCL 2% 400 MG/20 ML MDV INJ (10:58)
[2024-09-29] MEDS: BUPIVACAINE HCL 0.25% PF 25 MG/10 ML VIAL INJ (10:58)
--- NOTE | 2024-09-29 11:02 | W.PM.PROCNOT ---
Date of procedure: 09/29/24 Pre-op diagnosis: Pain due to lumbar stenosis with neurogenic claudication Post-op diagnosis: same as pre-op Procedure: Procedure: Right L4-5, l5-S1 transforaminal epidural steroid injection Medications: Bupivacaine 0.25% 2cc, lidocaine 2% 1cc, depomedrol 80mg The patient was seen and examined in the preoperative holding area.? Informed consent was obtained and placed on the chart.? Patient was brought to the medical procedure unit and placed in the prone position where a timeout was completed verifying the correct patient, procedure site, position, and planned special equipment using sterile aseptic technique.? Under direct fluoroscopic visualization a 25-gauge Quincke tipped spinal needle was advanced at level right L4-5 to the designated neural foramen where contrast dye was injected to show adequate spread.? There was no evidence of vascular or adverse uptake.? Epidural spread was appreciated.? The above-mentioned injectate was then placed in a 1.5 mL aliquot preceded by negative aspiration.? The needle was removed. The same procedure was completed at right L5-S1. ? Patient was taken to the postprocedural recovery area and monitored for an appropriate length of time before found suitable for discharge in the accompaniment of a responsible adult. Anesthesia: Local Surgeon: Tori Lai Pathology: none sent Condition: stable Disposition: no change
== END 2024-09-29 11:23 | disposition home or self-care (01) ==
PROVIDERS: Visit Provider Anesthesiology
DX: M48.062 Spinal stenosis, lumbar region with neurogenic claudication (principal); M54.50 Low back pain, unspecified
CPT/HCPCS: 64483; 64484; J0665; J1010; Q9966

== ENCOUNTER 2024-10-09 08:25 | Outpatient (OUT) | payer MEDICARE, BC, SELFPAY ==
--- OUTSIDE RECORDS SUMMARY | 2024-09-30 14:00 | XMS_ITS | Encounter Summary ---
Author Organization [facility] Address [address] [place] [address] Phone Care Team Providers Care Farm Contractor Name Role Phone Leanna Quiroz MD Primary Care Provider + Reason for Referral * Cardiovascular (Routine) - Authorized Specialty Diagnoses / Procedures Referred By Bill cross Referred To Contact Diagnoses Shortness of breath Procedures ECG 12 Lead Valerie Giang APRN-CNP [address] [address] Phone: tel: fax: Referral ID Status Reason Start Date Expiration Date V isits Requested Visits Authorized [id number] Authorized 09/30/2024 09/30/2025 1 1 * Imaging (Routine) - Authorized Specialty Diagnoses / Procedures Referred By Bill cross Referred To Contact Radiology Diagnoses Shortness of breath Procedures XR chest 2 views Valerie Giang APRN-CNP [address] [address] Phone: tel: fax: Referral ID Status Reason Start Date Expiration Date Visits Requested Visits Authorized [id number] Authorized Perform Procedure 09/30/2024 09/30/2025 1 1 Reason for Visit * Reason Comments Shortness of Breath Feeling SOB for a co uple of months, She is not on oxygen tank she does uses her husbands oxygen. Pt does us it 3-5 times day. No chest pain she declines asthma. Last time she felt like she couldnt breath was getting out of this shower this morning. When seating down without oxygen she is at a 91-92 oxygen. With oxygen she is at 97% Encounter Details Date Type Department Care Team (Late st Contact Info) Description 09/30/2024 2:00 PM EDT Office Visit [facility] Building [address] [phone] Valerie Giang APRN-DIPESH [address] [facility] [address] [place] [address] Shortness of breath (Primary Dx); Leukocytosis, unspecified type Social History Tobacco Use Types Packs/Day Years [...] on file documented as of this encounter Last Filed Vital Signs Vital Sign Reading Time Taken Comments Blood Pressure 119/80 09/30/2024 1:56 PM EDT Pulse 61 09/30/2024 1:56 PM EDT Temperature 36 C (96.8 F) 09/30/2024 1:56 PM EDT Respiratory Rate 16 09/30/2024 1:56 PM EDT Oxygen Saturation - - Inhaled Oxygen Concentration - - Weight 76.4 kg (168 lb 8 oz) 09/30/2024 1:56 PM EDT Height 156.2 cm (5' 1.5 ) 09/30/2024 1:56 PM EDT Body Mass Index 31.32 09/30/2024 1:56 PM EDT documented in this encounter Progress Notes * JELANI Clemens - 09/30/2024 2:00 PM EDT Subjective Patient ID: Erica Lopez is a 84 y.o. female who presents for Shortness of Breath (Feeling SOB for acouple of months, She is not on oxygen tank she does uses her husbands oxygen. Pt does us it 3-5 times day. No chest pain she declines asthma. Last time she felt like she couldnt breath was getting out of this shower this morning. When seating down without oxygen she is at a 91-92 oxygen. With oxygen she is at 97%). HPI Shortness of breath. Patient presents to office with son for 2-month shortness of breath. Patient denies chest pain, history of asthma history of sleep apnea, history of COPD, fever, chills, wheezing. Patient reports using her son's as needed 3 L nasal cannula oxygen at home. Patient's does not see veneer sorter, deniessyncope. Patient does report some brain fog, believes this is due to gabapentin. - Onset: 2 months. - Location: SOB - Duration: On and off with movement. - Characteristics: SOB with exertion. - Aggravating factors: None. - Relieving factors: None. - Treatment: Uses PRN 3L NC from her son. Review of Systems Constitutional: Patient denies any fever, chills, appetite change, fatigue, diaphoresis, or unexpected weight change. Respiratory: Reports shortness of breath with exertion. patient denies any cough, chest tightness, or wheezing. Cardiovascular: Bilateral ankles swelling. Patient denies any chest pain, tachycardia, palpitations, orthopnea, or paroxysmal nocturnal dyspnea. Gastrointestinal Patient denies any nausea, vomiting, diarrhea, constipation, abdominal distention,melena, hematochezia, or reflux symptoms. Musculoskeletal: Reports chronic back pain. Patient denies joint swelling, myalgias, neck pain, andneck stiffness. Neurology: Patient denies headaches, any new motor or sensory losses, numbness, tingling, weakness,and incoordination of the extremities, tremors, seizures, dizziness, facial asymmetry, or gait instability. Objective BP 119/80 Pulse 61 Temp 36 ??C (96.8 ??F) (Temporal) Resp 16 Ht 1.562 m (5' 1.5 ) Wt 76.4kg (168 lb 8 oz) BMI 31.32 kg/m?? Physical Exam Constitutional: Awake, alert, and oriented. In no acute distress, no diaphoresis, well-developed, well-nourished. Appears stated age. Cardiovascular: RRR, no murmur, gallop, edema, or palpitations. Pulmonary: Patient mildly breathless when speaking during history intake. Pulse ox remains 91 to 92% while ambulating in [place]. Lungs are clear to auscultation bilaterally with good air exchange. No wheezing, rhonchi, or rales. Assessment/Plan Diagnoses and all orders for this visit: Shortness of breath -Patient's lungs sound good on examination, patient's pulse ox remained 91 to 92% with walking in halls. Patient has mild shortness of breath about sitting down and giving history. Patient feels relief at home when using her son's nasal cannula. Patient denies any infectious symptoms. Patient denies cardiac history besides high blood pressure. Patient is to have EKG in office, have chest x-ray done and blood work rule out any infection. If results are okay, spirometry would be ordered. Albuterol inhaler will be given as needed for fast acting relief if she were to need it. If patient develops increased shortness of breath where she cannot catch her breath, chest pain patient needs to go [facility] ER. - XR chest 2 views; Future - CBC and Auto Differential; Future - B-type natriuretic peptide; Future - Comprehensive Metabolic Panel; Future - albuterol 2.5 mg /3 mL (0.083 %) nebulizer solution; Take 3 mL (2.5 mg) by nebulization 4 times aday as needed for wheezing or shortness of breath. Follow Up -Patient is to keep upcoming appointment with PCP for December. -Patient is aware to reach back out to provider if symptoms do not improve after treatment is complete. -Patient is aware to go to the emergency room if the patient would develop fever with worsening symptoms, chest pain, shortness of breath. -The patient and/or caregiver has verbalized understanding of the above treatment plan and have no further questions at this time. Erica Lopez- please be aware that any referrals discussed today in this visit should be placed as well as tests/labs ordered should result in prompt scheduling today. If not done today-then a phone call for scheduling is expected in a timely manner (within 2 weeks). If testing is to be done-a result should be available to patient within 2 weeks time unless otherwise specified. Please reach out ifyou have not heard results back within a timely manner. You, the patient or caregiver, are responsible for making sure what was discussed in this visit is actually scheduled and completed. If suboptimal understanding of results of tests or referral reason- a follow up appointment with me or your primary provider should be made. If above recommended testi ng/referrals/labs/treatment ect does NOT occur-you are to connect with us for explanation. Patient understands that should they have testing outside facilities that we may not receive the results and was told to call us if they have not heard from our office within a week after testing. Please take into consideration, [employer] voice recognition dictation software was utilized partially in the preparation of this note, therefore, inaccuracies in spelling, word choice and punctuation may have occurred which were not recognized at the time of signing. documented in this encounter Miscellaneous Notes * Addendum Note - JELANI Clemens - 09/30/2024 2:00 PM EDTAddended by: VALERIE GIANG on: 10/02/2024 11:12 AM Modules accepted: Orders documented in this encounter Plan of Treatment Upcoming Encounters Date Type Department Care Team (Late st Contact Info) Description 11/03/2024 11:15 AM EDT Office Visit [facility] Medical [facility] Building [address] [place] [phone] Leanna Quiroz MD [address] [place] [phone] documented as of this encounter Procedures Procedure Name Priority Date/Time Associated Diagnosis Comments CBC WITH AUTO DIFFERENTIAL Routine 09/30/2024 3:14 PM EDT Shortness of breath B-TYPE NATRIURETIC PEPTIDE Routine 09/30/2024 3:14 PM EDT Shortness of breath COMPREHENSIVE METABOLIC PANEL Routine 09/30/2024 3:14 PM EDT Shortness of breath ECG 12-LEAD Routine 09/30/2024 3:01 PM EDT Shortness of breath documented in this encounter Results * XR chest 2 views (09/30/2024 3:28 PM EDT) Anatomical Region Laterality Modality Thoracic, Chest Computed Radiogr aphy 10/01/2024 6:05 PM EDT 10/01/2024 6:05 PM EDT Impressions 10/01/2024 6:04 PM EDT 1. No acute abnormality seen MACRO: None Signed by: Lobito Kline 10/01/2024 6:04 PM Dictation workstation: [id number] Narrative 10/01/2024 6:04 PM EDT Interpreted By: Lobito Kline, STUDY: XR CHEST 2 VIEWS; 09/30/2024 3:28 pm INDICATION: Signs/Symptoms:new onset SOB. ,R06.02 Shortness of breath COMPARISON: None. ACCESSION NUMBER(S): [id number] ORDERING CLINICIAN: VALERIE GIANG FINDINGS: CARDIOMEDIASTINAL SILHOUETTE: Cardiomediastinal silhouette is normal in size and configuration. LUNGS: Lungs are clear. There is no consolidation. There is no effusion ABDOMEN: No remarkable upper abdominal findings. BONES: No acute osseous changes. Procedure Note Lobito Kline MD - 10/01/2024 Interpreted By: Lobito Kline, STUDY: XR CHEST 2 VIEWS; 09/30/2024 3:28 pm INDICATION: Signs/Symptoms:new onset SOB. ,R06.02 Shortness of breath COMPARISON: None. ACCESSION NUMBER(S): [id number] ORDERING CLINICIAN: VALERIE GIANG FINDINGS: CARDIOMEDIASTINAL SILHOUETTE: Cardiomediastinal silhouette is normal in size and configuration. LUNGS: Lungs are clear. There is no consolidation. There is no effusion ABDOMEN: No remarkable upper abdominal findings. BONES: No acute osseous changes. IMPRESSION: 1. No acute abnormality seen MACRO: None Signed by: Lobito Kline 10/01/2024 6:04 PM Dictation workstation: [id number] Valerie Giang APRN-CLINICAL ADMINISTRATOR IMG XR PROCEDURES Fin al Result * (ABNORMAL) Comprehensive Metabolic Panel (09/30/2024 3:14 PM EDT) GLUCOSE 91 65 - 99 mg/dL [facility] Comment: Fasting reference interval UREA NITROGEN (BUN) 27(H) 7 - 25 mg/dL [facility] CREATININE 0.88 0.60 - 0.95 mg/dL [facility] EGFR 64 > OR = 60 mL/min/1. 73m2 [facility] SODIUM 141 135 - 146 mmol/L [facility] POTASSIUM 5.3 3.5 - 5.3 mmol/L [facility] CHLORIDE 98 98 - 110 mmol/L [facility] CARBON DIOXIDE 32 20 - 32 mmol/L [facility] ELECTROLYTE BALANCE 11 7 - 17 mmol/L (calc) [facility] CALCIUM 10.7(H) 8.6 - 10.4 mg/dL [facility] PROTEIN, TOTAL 7.5 6.1 - 8.1 g/dL [facility] ALBUMIN 4.7 3.6 - 5.1 g/dL [facility] BILIRUBIN, TOTAL 0.5 0.2 - 1.2 mg/dL [facility] ALKALINE PHOSPHATASE 84 37 - 153 U/L [facility] AST 17 10 - 35 U/L [facility] ALT 23 6 - 29 U/L [facility] Blood Venous blood specimen / Unknown 09/30/2024 3:14 PM EDT 09/30/2024 3:14 PM EDT Valerie Giang APRN-CLINICAL ADMINISTRATOR LAB BLOOD ORDERABLES Final Result [facility] [address] [facility], [address] [place] [address] * (ABNORMAL) B-type natriuretic peptide (09/30/2024 3:14 PM EDT) Pathologist [facility] B TYPE NATRIURETIC PEPTIDE (BNP) 210(H) <100 pg/mL [facility] Comment: BNP levels increase with age in the general population with the highest values seen in individuals greater than 75 years of age. Reference: J. Am. Lamar. Cardiol. 2002; 40:976-982. Blood Venous blood specimen / Unknown 09/30/2024 3:14 PM EDT 09/30/2024 3:14 PM EDT us Valerie Giang ADJUNCT FACULTY MATHEMATICS DEPARTMENT-CLINICAL ADMINISTRATOR LAB BLOOD ORDERABLES Final Result [facility] [address] [facility], [address] [place] [phone] * (ABNORMAL) CBC and Auto Differential (09/30/2024 3:14 PM EDT) [facility] WHITE BLOOD CELL COUNT 11.2(H) 3.8 - 10.8 Thousand/ uL [facility] RED BLOOD CELL COUNT 4.21 3.80 - 5.10 Million/u L [facility] HEMOGLOBIN 14.3 11.7 - 15.5 g/dL [facility] HEMATOCRIT 43.1 35.0 - 45.0 % [facility] MCV 102.4(H) 80.0 - 100.0 fL [facility] MCH 34.0(H) 27.0 - 33.0 pg [facility] MCHC 33.2 32.0 - 36.0 g/dL [facility] Comment: For adults, a slight decrease in the calculated MCHC value (in the range of 30 to 32 g/dL) is most likely not clinically significant; however, it should be interpreted with caution in correlation with other red cell parameters and the patient's clinical condition. RDW 13.7 11.0 - 15.0 % [facility] PLATELET COUNT 345 140 - 400 Thousand/ uL [facility] MPV 9.8 7.5 - 12.5 fL [facility] ABSOLUTE NEUTROPHILS 8,266(H) 1,500 - 7,800 cells/uL [facility] ABSOLUTE LYMPHOCYTES 1,837 850 - 3,900 cells/uL [facility] ABSOLUTE MONOCYTES 997(H) 200 - 950 cells/uL [facility] ABSOLUTE EOSINOPHILS 78 15 - 500 cells/uL [facility] ABSOLUTE BASOPHILS 22 0 - 200 cells/uL [facility] NEUTROPHILS 73.8 % [facility] [place] LYMPHOCYTES 16.4 % [facility] MONOCYTES 8.9 % [facility] EOSINOPHILS 0.7 % [facility] [place] BASOPHILS 0.2 % [facility] [place] [place] Blood Venous blood specimen / Unknown 09/30/2024 3:14 PM EDT 09/30/2024 3:14 PM EDT Valerie PALOMARES LAB BLOOD ORDERABLES Final Result [facility] [address], [address] [place] [phone] * ECG 12 Lead (09/30/2024 3:01 PM EDT) Narrative Valerie Giang APRN-CNP - 09/30/2024 3:01 PM EDT Sinus rhythm Normal ECG Valerie PALOMARES ECG ORDERABLES Final Result documented in this encounter Visit Diagnoses Diagnosis Shortness of breath- Primary Leukocytosis, unspecified type Shortness of breath documented in this encounter Additional Health Concerns Assessment Noted Time A fall risk assessment has been complete d for the patient 09/30/2024 2:09 PM EDT documented as of this encounter Care Teams Farm Contractor Relationship Specialty Start Date End Date Leanna Quiroz MD [address] [phone] PCP - General Family Medicine 05/19/24 documented as of this encounter
--- OUTSIDE RECORDS SUMMARY | 2024-09-30 15:23 | XMS_ITS | Encounter Summary ---
Author Organization [facility] Address [address] [place] [address] Phone Care Team Providers Care Immigration Coordinator Name Role Phone Leanna Quiroz MD Primary Care Provider + Reason for Referral * Imaging (Routine) - Authorized Specialty Diagnoses / Procedures Referred By Bill cross Referred To Contact Radiology Diagnoses Shortness of breath Procedures XR chest 2 views Valerie Giang APRN-CNP [address] [place] [address] Phone: tel: fax: Referral ID Status Reason Start Date Expiration Date Visits Requested Visits Authorized [id number] Authorized Perform Procedure 09/30/2024 09/30/2025 1 1 Reason for Visit * Imaging (Routine) - Authorized Specialty Diagnoses / Procedures Referred By Bill cross Referred To Contact Radiology Diagnoses Shortness of breath Procedures XR chest 2 views Valerie Giang APRN-CNP [address] [address] Phone: tel: fax: Referral ID Status Reason Start Date Expiration Date Visits Requested Visits Authorized [id number] Authorized Perform Procedure 09/30/2024 09/30/2025 1 1 Encounter Details Date Type Department Care Team (Latest Contact Info) Description 09/30/2024 3:23 PM EDT - 09/30/2024 11:59 PM EDT Hospital Encounter [facility] [address] [phone] Shortness of breath Discharge Disposition: Home Social History Tobacco Use Types Packs/Day Years [...] on file documented as of this encounter Medications at Time of Discharge acetaminophen (Tylenol) 325 mg tablet Take by mouth every 6 hours if needed for mild pain (1 - 3). albuterol 2.5 mg /3 mL (0.083 %) nebulizer solutionIndicatio ns:Shortness of breath Take 3 mL (2.5 mg) by nebulization 4 times a day as needed for wheezing or shortness of breath. 3 mL 3 09/30/2024 6 ascorbic acid (Vitamin C) 500 mg tablet Take 1 tablet (500 mg) by mouth once daily. busPIRone (Buspar) 10 mg tablet Take 1 tablet (10 mg) by mouth 2 times a day. cholecalciferol (Vitamin D3) 25 mcg (1,000 units) tablet Take 1 tablet (25 mcg) by mouth once daily. diazePAM (Valium) 10 mg tabletIndications :Anxiety Take 1 tablet (10 mg) by mouth once daily. 90 tablet 08/26/2024 doxycycline (Vibramycin) 100 mg capsuleIndication s:Shortness of breath,Leukocytos is, unspecified type Take 1 capsule (100 mg) by mouth 2 times a day for 14 days. Take with at least 8 ounces (large glass) of water, do not lie down for 30 minutes after 28 capsule 10/02/2024 gabapentin (Neurontin) 100 mg capsuleIndication s:Right sided sciatica Take 1 capsule (100 mg) by mouth 2 times a day. 60 capsule 1 07/29/2024 5 gabapentin (Neurontin) 100 mg capsuleIndication s:Right sided sciatica Take 2 capsules (200 mg) by mouth 3 times a day. 180 capsule 5 08/06/2024 HYDROcodone-aceta minophen (Gravel Switch) 5-325 mg tablet Take 1 tablet by mouth 2 times a day as needed for severe pain (7 - 10). levothyroxine (Synthroid, Levoxyl) 100 mcg tablet Take 1 tablet (100 mcg) by mouth early in the morning.. Take on an empty stomach at the same time each day, either 30 to 60 minutes prior to breakfast losartan (Cozaar) 50 mg tablet Take 1 tablet (50 mg) by mouth 2 times a day. multivitamin tablet Take 1 tablet by mouth once daily. NIFEdipine ER (NIFEdipine XL) 60 mg 24 hr tabletIndications :Primary hypertension Take 1 tablet (60 mg) by mouth once daily in the morning. Take before meals. Do not crush, chew, or split. 90 tablet 1 09/22/2024 PARoxetine (Paxil) 20 mg tablet Take 1 tablet (20 mg) by mouth once daily in the morning. polyethylene glycol (Glycolax, Miralax) 17 gram packet Take 17 g by mouth once daily. propranolol XL (Innopran XL) 120 mg 24 hr capsule Take 1 capsule (120 mg) by mouth 2 times a day. Do not crush, chew, or split. vit C/E/Zn/coppr/lute in/zeaxan (PRESERVISION AREDS-2 ORAL) Take by mouth. documented as of this encounter Plan of Treatment Upcoming Encounters Date Type Department Care Team (Late st Contact Info) Description 11/03/2024 11:15 AM EDT Office Visit [facility] Office Building [address] [phone] Leanna uQiroz MD [address] [place] [phone] documented as of this encounter Procedures Procedure Name Priority Date/Time Associated Diagnosis Comments XR CHEST 2 VIEWS Routine 09/30/2024 3:28 PM EDT Shortness of breath documented in this encounter Results * XR chest 2 views (09/30/2024 3:28 PM EDT) Anatomical Region Laterality Modality Thoracic, Chest Computed Radiogr aphy 10/01/2024 6:05 PM EDT 10/01/2024 6:05 PM EDT Impressions 10/01/2024 6:04 PM EDT 1. No acute abnormality seen MACRO: None Signed by: Lobito Kline 10/01/2024 6:04 PM Dictation workstation: [id number] Narrative 10/01/2024 6:04 PM EDT Interpreted By: Lobito Kline, STUDY: XR CHEST 2 VIEWS; 09/30/2024 3:28 pm INDICATION: Signs/Symptoms:new onset SOB. ,R06.02 Shortness of breath COMPARISON: None. ACCESSION NUMBER(S): [id number] ORDERING CLINICIAN: VALERIE GIANG FINDINGS: CARDIOMEDIASTINAL SILHOUETTE: [...] Shortness of breath COMPARISON: None. ACCESSION NUMBER(S): [id number] ORDERING CLINICIAN: VALERIE GIANG FINDINGS: CARDIOMEDIASTINAL SILHOUETTE: Cardiomediastinal silhouette is normal in size and configuration. LUNGS: Lungs are clear. There is no consolidation. There is no effusion ABDOMEN: No remarkable upper abdominal findings. BONES: No acute osseous changes. IMPRESSION: 1. No acute abnormality seen MACRO: None Signed by: Lobito Kline 10/01/2024 6:04 PM Dictation workstation: [id number] us Valerie Giang CORK COMPOUNDER-DAIRY ASSOCIATE IMG XR PROCEDURES Fin al Result documented in this encounter Visit Diagnoses Diagnosis Shortness of breath documented in this encounter Additional Health Concerns Assessment Noted Time A fall risk assessment has been complete d for the patient 09/30/2024 2:09 PM EDT documented as of this encounter Care Teams Immigration Coordinator Relationship Specialty Start Date End Date Leanna Quiroz MD [address] [place] [phone] PCP - General Family Medicine 05/19/24 documented as of this encounter
--- OUTSIDE RECORDS SUMMARY | 2024-10-09 08:29 | XMS_ITS | Encounter Summary ---
Author Organization [facility] Address [address] [place] [address] Phone Care Team Providers Care Nurse'S Assistant Name Role Phone Leanna Quiroz MD Primary Care Provider + Encounter Details Date Type Department Care Team (Latest Contact Info) Description 09/30/2024 Travel Social History Tobacco Use Types Packs/Day Years [...] Upcoming Encounters Date Type Department Care Team ( st Contact Info) Description 11/03/2024 11:15 AM EDT Office Visit [facility] Office Building [address] [phone] Leanna Quiroz MD [address] [address] documented as of this encounter Visit Diagnoses Not on filedocumented in this encounter Additional Health Concerns Assessment Noted Time A fall risk assessment has been complete d for the patient 09/30/2024 2:09 PM EDT documented as of this encounter Care Teams Nurse'S Assistant Relationship Specialty Start Date End Date Leanna Quiroz MD [address] [phone] PCP - General Family Medicine 05/19/24 documented as of this encounter
--- OUTSIDE RECORDS SUMMARY | 2024-10-09 08:29 | XMS_ITS | Clinical Summary ---
Author Organization [facility] Address [address] [place] [address] Phone Care Team Providers Care Product Management Intern Name Role Phone Leanna Quiroz MD Primary [...] to 60 minutes prior to breakfast Active PARoxetine (Paxil) 20 mg tablet Take [...] mild pain (1 - 3). Active vit C/E/Zn/coppr/lut ein/zeaxan (PRESERVISION AREDS-2 ORAL) Take by mouth. A ctive ascorbic acid (Vitamin C) 500 mg tablet Take 1 tablet (500 mg) by mouth once daily. Active cholecalciferol (Vitamin D3) 25 mcg (1,000 units) tablet Take 1 tablet (25 mcg) by mouth once daily. Active polyethylene glycol (Glycolax, Miralax) 17 gram packet Take 17 g by mouth once daily. Active multivitamin tablet Take 1 tablet by mouth once daily. Active HYDROcodone-acet aminophen ([place]oline) 5-325 mg tablet Take 1 tablet by mouth 2 times a day as needed for severe pain (7 - 10). Active gabapentin (Neurontin) 100 mg capsuleIndicatio ns:Right sided sciatica Take 1 capsule (100 mg) by mouth 2 times a day. 60 capsule 1 07/30/19 25 025 Active gabapentin (Neurontin) 100 mg capsuleIndicatio ns:Right sided sciatica Take 2 capsules (200 mg) by mouth 3 times a day. 180 capsule 5 08/07/19 25 025 Active diazePAM (Valium) 10 mg tabletIndication s:Anxiety Take 1 tablet (10 mg) by mouth once daily. 90 tablet 08/27/19 25 Active NIFEdipine ER (NIFEdipine XL) 60 mg 24 hr tabletIndication s:Primary hypertension Take 1 tablet (60 mg) by mouth once daily in the morning. Take before meals. Do not crush, chew, or split. 90 tablet 1 09/23/19 25 Active albuterol 2.5 mg /3 mL (0.083 %) nebulizer solutionIndicati ons:Shortness of breath Take 3 mL (2.5 mg) by nebulization 4 times a day as needed for wheezing or shortness of breath. 3 mL 3 10/01/19 25 026 Active doxycycline (Vibramycin) 100 mg capsuleIndicatio ns:Shortness of breath,Leukocyto sis, unspecified type Take 1 capsule (100 mg) by mouth 2 times a day for 14 days. Take with at least 8 ounces (large glass) of water, do not lie down for 30 minutes after 28 capsule 10/03/19 25 025 Active NIFEdipine ER (NIFEdipine XL) 60 mg 24 hr tablet Take 1 tablet (60 mg) by mouth once daily in the morning. Take before meals. Do not crush, chew, or split. 025 Discontin ued(Reord er) Active Problems Problem Noted Date Diagnosed Date Primary hypertension 07/25/2024 Anxiety 07/25/2024 Grief reaction 07/25/2024 Postoperative hypothyroidism 07/25/2024 Motion sickness 07/25/2024 Encounters Date Type Department Care Team Description 09/30/2024 3:23 PM EDT - 09/30/2024 11:59 PM EDT [facility] [address] [facility] [address] [place] [address] Shortness of breath Discharge Disposition: Home 09/30/2024 2:00 PM EDT Office Visit [facility] Medical Office Building [address] [facility] [address] [place] [address] Serena Giang, MANAGER MEDICAL AFFAIRS-[employer] Shortness of breath (Primary Dx); Leukocytosis, unspecified type 09/30/2024 Travel 09/29/2024 Telephone [facility] Medical [facility] Building [address] [place] [address] Leanna Quiroz MD 08/26/2024 Orders Only [facility] Building [address] [place] [address] Leanna Quiroz MD 08/26/2024 Orders Only [facility] Medical Office [place] [id number] [place] [address] Chelle Youssef MA Anxiety (Primary Dx) 08/06/2024 Orders Only [facility] Medical Office [address] [place] [address] Michelle Anaya MA Right sided sciatica 07/29/2024 Orders Only [facility] Office Building [address] [place] [address] Leanna Quiroz MD Right sided sciatica (Primary Dx) 07/25/2024 9:30 AM EDT Office Visit [facility] Office Building [address] [place] [address] Leanna Quiroz MD Right sided sciatica (Primary [...] 16 09/30/2024 1:56 PM EDT Oxygen Saturation 94% 07/25/2024 9:42 AM EDT Inhaled Oxygen Concentration - - Weight 76.4 kg (168 lb 8 oz) 09/30/2024 1:56 PM EDT Height 156.2 cm (5' 1.5 ) 09/30/2024 1:56 PM EDT Body Mass Index 31.32 09/30/2024 1:56 PM EDT Plan of Treatment Upcoming Encounters Date Type Department Care Team (Late st Contact Info) Description 11/03/2024 11:15 AM EDT Office Visit [facility] Medical Office Building [address] [phone] Leanna Quiroz MD [address] [address] Health Maintenance Due Date Last Done Comments Bone Density Scan 1940 Medicare Annual Wellness Vis it (AWV) 1940 Pneumococcal Vaccine (1 of 1 - PCV) 1988 Zoster Vaccines (1 of 2) 1988 RSV High Risk: (Elderly (60+ ) or Population) (1 - 1-dose 75+ series) 2013 COVID-19 Vaccine ( - 2023-2 5 season) 2023 Influenza Vaccine (#1) 2024 Diabetes: Hemoglobin A1C 07/25/2025 07/25/2024 TSH Level 07/25/2025 07/25/2024 Lipid Panel 07/25/2029 07/25/2024 DTaP/Tdap/Td Vaccines (2 - T d or Tdap) 09/18/2034 09/18/2024 HIB Vaccines Aged Out No longer eligi ble based on patient's age to complete this topic HPV Vaccines (No Doses Required) Completed Hepatitis A Vaccines Aged Out No long [...] 09/30/2024 3:28 PM EDT Shortness of breath COMPREHENSIVE METABOLIC PANEL Routine 09/30/2024 3:14 PM EDT Shortness of breath B-TYPE NATRIURETIC PEPTIDE Routine 09/30/2024 3:14 PM EDT Shortness of breath CBC WITH AUTO DIFFERENTIAL Routine 09/30/2024 3:14 PM EDT Shortness of breath ECG 12-LEAD Routine 09/30/2024 3:01 PM EDT Shortness of breath THYROXINE, FREE Routine 07/25/2024 12:25 PM EDT [...] management from Last 3 Months Results * XR chest 2 views (09/30/2024 3:28 PM EDT) Anatomical Region Laterality Modality Thoracic, Chest Computed Radiogr aphy 10/01/2024 6:05 PM EDT 10/01/2024 6:05 PM EDT Impressions 10/01/2024 6:04 PM EDT 1. No acute abnormality seen MACRO: None Signed by: Lobito Kline 10/01/2024 6:04 PM Dictation workstation: [id number] Narrative 10/01/2024 6:04 PM EDT Interpreted By: Lobito Kline, STUDY: XR CHEST 2 VIEWS; 09/30/2024 3:28 pm INDICATION: Signs/Symptoms:new onset SOB. ,R06.02 Shortness of breath COMPARISON: None. ACCESSION NUMBER(S): [id number] ORDERING CLINICIAN: SERENA GIANG FINDINGS: CARDIOMEDIASTINAL SILHOUETTE: Cardiomediastinal silhouette is normal in size and configuration. LUNGS: Lungs are clear. There is no consolidation. There is no effusion ABDOMEN: No remarkable upper abdominal findings. BONES: No acute osseous changes. Procedure Note Lobito Kline MD - 10/01/2024 Interpreted By: Lobito Klnie, STUDY: XR CHEST 2 VIEWS; 09/30/2024 3:28 pm INDICATION: Signs/Symptoms:new onset SOB. ,R06.02 Shortness of breath COMPARISON: None. ACCESSION NUMBER(S): [id number] ORDERING CLINICIAN: SERENA GIANG FINDINGS: CARDIOMEDIASTINAL SILHOUETTE: Cardiomediastinal silhouette is normal in size and configuration. LUNGS: Lungs are clear. There is no consolidation. There is no effusion ABDOMEN: No remarkable upper abdominal findings. BONES: No acute osseous changes. IMPRESSION: 1. No acute abnormality seen MACRO: None Signed by: Lobito Kline 10/01/2024 6:04 PM Dictation workstation: [id number] us Serena Giang MANAGER MEDICAL AFFAIRS-[facility] IMG XR PROCEDURES Fin al Result * (ABNORMAL) CBC and Auto Differential (09/30/2024 3:14 PM EDT) Only the most recent of2 resultswithin the time period is included. WHITE BLOOD CELL COUNT 11.2(H) 3.8 - 10.8 Thousand/ uL [facility] RED BLOOD CELL COUNT 4.21 3.80 - 5.10 Million/u L [facility] HEMOGLOBIN 14.3 11.7 - 15.5 g/dL [facility] HEMATOCRIT 43.1 35.0 - 45.0 % [facility] MCV 102.4(H) 80.0 - 100.0 fL [facility] MCH 34.0(H) 27.0 - 33.0 pg [facility] MCHC 33.2 32.0 - 36.0 g/dL [facility] Comment: For adults, a slight decrease in the calculated MCHC value (in the range of 30 to 32 g/dL) is most likely not clinically significant; however, it should be interpreted with caution in correlation with other red cell parameters and the patient's clinical condition. RDW 13.7 11.0 - 15.0 % [facility] PLATELET COUNT 345 140 - 400 Thousand/ uL [facility] MPV 9.8 7.5 - 12.5 fL [facility] ABSOLUTE NEUTROPHILS 8,266(H) 1,500 - 7,800 cells/uL [facility] ABSOLUTE LYMPHOCYTES 1,837 850 - 3,900 cells/uL [facility] ABSOLUTE MONOCYTES 997(H) 200 - 950 cells/uL [facility] ABSOLUTE EOSINOPHILS 78 15 - 500 cells/uL [facility] ABSOLUTE BASOPHILS 22 0 - 200 cells/uL [facility] NEUTROPHILS 73.8 % [facility] LYMPHOCYTES 16.4 % [facility] MONOCYTES 8.9 % [facility] EOSINOPHILS 0.7 % [facility] BASOPHILS 0.2 % [facility] Blood Venous blood specimen / Unknown 09/30/2024 3:14 PM EDT 09/30/2024 3:14 PM EDT Serena Giang APRN-[facility] LAB BLOOD ORDERABLES Final Result Performing Organization Address [facility] Co de Phone Number [facility] [address] [address] * (ABNORMAL) B-type natriuretic peptide (09/30/2024 3:14 PM EDT) B TYPE NATRIURETIC PEPTIDE (BNP) 210(H) <100 pg/mL [facility] Comment: BNP levels increase with age in the general population with the highest values seen in individuals greater than 75 years of age. Reference: J. Am. Lamar. Cardiol. 2002; 40:976-982. Blood Venous blood specimen / Unknown 09/30/2024 3:14 PM EDT 09/30/2024 3:14 PM EDT Serena Giang APRN-[facility] LAB BLOOD ORDERABLES Final Result Performing Organization Address [facility]/ZIP Co de Phone Number [employer] [facility] [address] [address] * (ABNORMAL) Comprehensive Metabolic Panel (09/30/2024 3:14 PM EDT) Only the most recent of2 resultswithin the time period is included. Pathologist [facility] GLUCOSE 91 65 - 99 mg/dL [facility] Comment: Fasting reference interval UREA NITROGEN (BUN) 27(H) 7 - 25 mg/dL [facility] CREATININE 0.88 0.60 - 0.95 mg/dL [facility] EGFR 64 > OR = 60 mL/min/1. 73m2 [facility] SODIUM 141 135 - 146 mmol/L [facility] POTASSIUM 5.3 3.5 - 5.3 mmol/L [facility] CHLORIDE 98 98 - 110 mmol/L [facility] CARBON DIOXIDE 32 20 - 32 mmol/L [facility] ELECTROLYTE BALANCE 11 7 - 17 mmol/L (calc) [facility] CALCIUM 10.7(H) 8.6 - 10.4 mg/dL [facility] PROTEIN, TOTAL 7.5 6.1 - 8.1 g/dL [facility] ALBUMIN 4.7 3.6 - 5.1 g/dL [facility] BILIRUBIN, TOTAL 0.5 0.2 - 1.2 mg/dL [facility] ALKALINE PHOSPHATASE 84 37 - 153 U/L [facility] AST 17 10 - 35 U/L [facility] ALT 23 6 - 29 U/L [facility] Blood Venous blood specimen / Unknown 09/30/2024 3:14 PM EDT 09/30/2024 3:14 PM EDT us Serena PALOMARES LAB BLOOD ORDERABLES Final Result [facility] [address] [facility], [address] [place] [phone] * ECG 12 Lead (09/30/2024 3:01 PM EDT) Narrative Serena Giang APRN-CNP - 09/30/2024 3:01 PM EDT Sinus rhythm Normal ECG Serena Giang MANAGER MEDICAL AFFAIRS-[facility] [employer] ECG ORDERABLES Final Result * Thyroid Stimulating Hormone (07/25/2024 12:25 PM EDT) [facility] TSH 0.61 0.40 - 4.50 mIU/L [facility] Blood Venous blood specimen / Unknown 07/25/2024 12:25 PM EDT 07/25/2024 12:26 PM EDT [facility] - 07/26/2024 7:53 AM EDT FASTING:NO FASTING: NO Leanna Quiroz MD LAB BLOOD ORDERABLES Fin al Result [facility] [address], [address] [place] [phone] * Thyroxine, Free (07/25/2024 12:25 PM EDT) [facility] T4, FREE 1.2 0.8 - 1.8 ng/dL [facility] Blood Venous blood specimen / Unknown 07/25/2024 12:25 PM EDT 07/25/2024 12:26 PM EDT [facility] - 07/26/2024 7:53 AM EDT FASTING:NO FASTING: NO Leanna Quiroz MD LAB BLOOD ORDERABLES Fin al Result [facility] [address], [address] [place] [phone] * (ABNORMAL) Hemoglobin A1C (07/25/2024 12:25 PM EDT) [facility] HEMOGLOBIN A1c 5.9(H) <5.7 % [facility] Comment: For someone without known diabetes, a [...] diabetes for children. eAG (mg/dL) 123 mg/dL [facility] eAG (mmol/L) 6.8 mmol/L [facility] Blood Venous blood specimen / Unknown 07/25/2024 12:25 PM EDT 07/25/2024 12:26 PM EDT Narrative [facility] - 07/26/2024 7:53 AM EDT FASTING:NO FASTING: NO us Leanna Quiroz MD LAB BLOOD ORDERABLES Fin al Result [facility] [address] [facility], [address] [place] [phone] * (ABNORMAL) Lipid Panel (07/25/2024 12:25 PM EDT) [facility] CHOLESTEROL, TOTAL 178 <200 mg/dL [facility] HDL CHOLESTEROL 40(L) > OR = 50 mg/dL [facility] TRIGLYCERIDES 283(H) <150 mg/dL [facility] Comment: If a non-fasting specimen was collected, consider repeat triglyceride testing on a fasting specimen if clinically indicated. Kiesha et al. J. of Clin. Lipidol. 2015;9:129-169. LDL-CHOLESTEROL 98 mg/dL (calc) [facility] Comment: Reference range: <100 Desirable range <100 mg/dL for primary prevention; <70 mg/dL for patients with CHD or diabetic patients with > or = 2 CHD risk factors. LDL-C is now calculated using the New calculation, which is a validated novel method providing better accuracy than the Friedewald equation in the estimation of LDL-C. Jesse BAKER et al. NINFA. 2013;310(19): 9919-9000 (http://education.[employer]/faq/TVT356) CHOL/HDLC RATIO 4.5 <5.0 (calc) [facility] [place] NON HDL CHOLESTEROL 138(H) <130 mg/dL (calc) [facility] [place] Comment: For patients with diabetes plus 1 major ASCVD risk factor, treating to a non-HDL-C goal of <100 mg/dL (LDL-C of <70 mg/dL) is considered a therapeutic option. Blood Venous blood specimen / Unknown 07/25/2024 12:25 PM EDT 07/25/2024 12:26 PM EDT Narrative [facility] - 07/26/2024 7:53 AM EDT FASTING:NO FASTING: NO us Leanna Quiroz MD LAB BLOOD ORDERABLES Fin al Result [facility] [address] [facility], [address] [place] [address] * (ABNORMAL) Drug Screen, Urine With Reflex to Confirmation (07/25/2024 12:22 PM EDT) Fentanyl NEGATIVE <0.5 ng/mL [facility] Amphetamines NEGATIVE <500 ng/mL [facility] Barbiturates NEGATIVE <300 ng/mL [facility] Benzodiazepines POSITIVE(A ) <100 ng/mL [facility] Alphahydroxyalprazolam NEGATIVE <25 ng/mL [facility] Alphahydroxymidazolam NEGATIVE <50 ng/mL [facility] Alphahydroxytriazolam NEGATIVE <50 ng/mL [facility] Aminoclonazepam NEGATIVE <25 ng/mL [facility] Hydroxyethylflurazepam NEGATIVE <50 ng/mL [facility] Lorazepam NEGATIVE <50 ng/mL [facility] Nordiazepam 460(H) <50 ng/mL [facility] Oxazepam 599(H) <50 ng/mL [facility] Temazepam 653(H) <50 ng/mL [facility] Benzodiazepines Comments [facility] Comment:See Benzodiazepines Notes, LDT Notes Cocaine Metabolite NEGATIVE <150 ng/mL [facility] Marijuana Metabolite NEGATIVE <20 ng/mL [facility] Methadone Metabolite NEGATIVE <100 ng/mL [facility] Opiates POSITIVE(A ) <100 ng/mL [facility] Codeine NEGATIVE <50 ng/mL [facility] Hydrocodone 146(H) <50 ng/mL [facility] Hydromorphone NEGATIVE <50 ng/mL [facility] Morphine NEGATIVE <50 ng/mL [facility] Norhydrocodone 301(H) <50 ng/mL [facility] Opiates Comments [facility] Comment:See Opiates Notes, L DT Notes Oxycodone NEGATIVE <100 ng/mL [facility] Phencyclidine NEGATIVE <25 ng/mL [facility] Creatinine 30.8 > or = 20.0 mg/dL [facility] pH 6.8 4.5 - 9.0 [facility] Oxidant NEGATIVE <200 mcg/mL [facility] Notes and Comments [facility] Comment: This drug testing is for [...] analytical performance characteristics have been determined by [facility]. It has not been cleared or approved by the FDA. This assay has been validated pursuant to the CLIA regulations and is used for clinical purposes. Healthcare Providers needing Interpretation assistance, please contact us at [phone] ( ) M-F, 8am to 10pm EST Urine Urine specimen / Unknown 07/25/2024 12:22 PM EDT 07/26/2024 2:31 AM EDT us Leanna Quiroz MD LAB URINE ORDERABLES [facility] al Result [facility], [address] [place] [address] from Last 3 Months Insurance MEDICARE PART A AND B [facility] Member Subscriber Plan / Payer (Ef fective 2021-Present) Name:Erica Lopez Relation to Subscriber:Self Name:Erica Lopez Payer ID:[id number] (NAIC) Type:Not on file Address: [id number] MEDICARE PART A AND B Care Teams Product Management Intern Relationship Specialty Start Date End Date Leanna Quiroz MD [address] [place] [phone] PCP - General Family Medicine 05/19/24
--- OUTSIDE RECORDS SUMMARY | 2024-10-09 08:29 | XMS_ITS | Encounter Summary ---
Author Organization [facility] Address [address] [place] [address] Phone Care Team Providers Care Healthcare Applications Analyst Name Role Phone Leanna Quiroz MD Primary Care Provider + Encounter Details Date Type Department Care Team (Late st Contact Info) Description 09/29/2024 Telephone [facility] Medical Office Building [address] [phone] Leanna Quiroz MD [address] [place] [phone] Social History Tobacco Use Types Packs/Day Years [...] on file documented as of this encounter Miscellaneous Notes * Telephone Encounter - Brenda Barney - 09/29/2024 2:48 PM EDT Pt son Teresa called back about the referral please contact him at [phone] documented in this encounter Plan of Treatment Upcoming Encounters Date Type Department Care Team (Late Contact Info) Description 11/03/2024 11:15 AM EDT Office Visit [facility] Medical Office Building [address] [phone] Leanna Quiroz MD [address] [place] [phone] documented as of this encounter Visit Diagnoses Not on filedocumented in this encounter Additional Health Concerns Assessment Noted Time A fall risk assessment has been complete d for the patient 07/25/2024 9:37 AM EDT documented as of this encounter Care Teams Healthcare Applications Analyst Relationship Specialty Start Date End Date Leanna Quiroz MD [address] [place] [phone] PCP - General Family Medicine 05/19/24 documented as of this encounter
--- NOTE | 2024-10-09 08:30 | PM.CN ---
Consult Note: HPI Data of Consult Patient: known to practice within the last 3 years Consult date: 10/09/24 Requesting Physician: Shayy Santana NP Primary Care Provider: Non-Staff Physician, Family Provider: Leanna Quiroz Consult Narrative Reason for consult: right leg/hip pain Narrative: Erica Lopez a pleasant 84 year old female presents for evaluation of low back, right SIJ, and right hip pain. pt has a hx of lumbar ddd, lumbar spondylosis, lumbar stenosis. pt reports no improvement with right sij injection recently underwent right L4-5 L5-S1 TFESI with significant improvement while anesthetized per pt but no relief ongoing. pain 10/10 in right hip and lateral leg, throbbing pressure. increased pain with standing, walking, lifting, housework, sleeping, traveling. cannot tolerate gabapentin 600mg TID, now taking gabapentin 300mg TID with unknown relief. cc:: CC: Shayy Santana NP PFSH PFSH Medical History (Updated 10/09/24 @ 09:05 by Shayy Santana NP) Low back pain ?M54.50 - Low back pain, unspecified (ICD-10) Osteoarthritis ?M19.90 - Unspecified osteoarthritis, unspecified site (ICD-10) Glaucoma ?H40.9 - Unspecified glaucoma (ICD-10) Hypertension ?I10 - Essential (primary) hypertension (ICD-10) Surgical History (Updated 09/04/24 @ 11:28 by Ellen Godfrey) H/O thyroidectomy ?Z98.890 - Other specified postprocedural states (ICD-10) ?Z90.89 - Acquired absence of other organs (ICD-10) H/O: hysterectomy ?Z90.710 - Acquired absence of both cervix and uterus (ICD-10) Meds Home Medications and Allergies Home Medications ?Medication ?Instructions ?Recorded ?Confirmed ?Type acetaminophen 325 mg tablet 325 mg PO Q6H PRN pain 09/04/24 09/29/24 History (Tylenol) ascorbic acid (vitamin C) 1,000 mg 1 g PO DAILY 09/04/24 09/29/24 History tablet (Vitamin C) calcium phosphate,dibasic 77 tab PO DAILY 09/04/24 History mg-vitamin D3 400 unit tablet levothyroxine 100 mcg tablet 100 mcg PO DAILY 09/04/24 09/29/24 History (Synthroid) losartan 50 mg tablet 50 mg PO BID 09/04/24 09/29/24 History motion pills 09/04/24 History multivitamin 1 tab PO DAILY 09/04/24 09/29/24 History nifedipine 60 mg tablet,extended 60 mg PO DAILY 09/04/24 09/29/24 History release paroxetine HCl 20 mg tablet 20 mg PO DAILY 09/04/24 09/29/24 History polyethylene glycol 3350 17 17 g PO DAILY PRN constipation 09/04/24 09/29/24 History gram/dose oral powder (Miralax) propranolol 120 mg capsule,24 120 mg PO BID 09/04/24 09/29/24 History hr,extended release scopolamine HBr 0.4 mg tablet 20 mg PO PRN motion sickness 09/04/24 History gabapentin 600 mg tablet 600 mg PO TID #90 tabs 09/24/24 09/29/24 Rx Allergies Allergy/AdvReac Type Severity Reaction Status Date / Time morphine Allergy Mild Unknown Verified 09/29/24 10:06 Exam Constitutional Documenting provider has reviewed patient's vital signs: yes Common normals: no apparent distress, oriented x3, healthy appearing, alert and well nourished General appearance: cooperative HENMT Common normals: normocephalic, hearing grossly normal bilaterally and moist oral mucous membranes Head and scalp: normocephalic Eye Common normals: PERRL Pupil: PERRL Neck & C-Spine Common normals: full ROM General: normal visual inspection Chest Common normals: inspection of chest normal Respiratory Common normals: normal respiratory effort, no retractions and no use of accessory muscles Back & Pelvis Lumbar spine/lower back: ROM limited, pain with ROM and straight leg raise negative bilaterally Sacroiliac joints: SI joints normal and SI joint(s) abnormal Other: sensation intact BLE strength 4/5 in RLE and 5/5 in LLE right sij positive madalyn(patricks), gaenslens, thigh thrust, compression test moderate to significant pain over right GTB and IT band increased pain with internal rotation of right hip Extremity Right lower extremity: hip joint Other: mild nonpitting edema noted to BLE pain noted with internal and external log roll Neuro Common normals: oriented x3 Sensorium/orientation: alert Gait (neuro): assistive device used other (wheelchair) Psych Common normals: mental status grossly normal, thought process normal, cooperative, affect normal, speech normal and activity/motor behavior normal Speech: normal speech Thought process: normal thought process Results Additional Findings Additional findings: If on a controlled substance or opioids, I have checked an OARRS report on this patient and there are no aberrancies noted in the prescribing history.??If on a controlled substance or opioid a drug screen was completed and reviewed within the last year, and if there has not been a drug screen completed we ordered one today to monitor higher risk, state monitored pain medication use. As part of providing excellent, safe, comprehensive care, the following was completed at our patient's visit: 1. A medication reconciliation and review to ensure accurate knowledge of current/active medications, including asking our patients to inform us about any mltt-fon-sgcahup medications or herbal remedies/nutritional supplements/alternative remedies. 2. A review to specifically ensure our patients have had annual screening for screening for depression, screening for tobacco use, and screening for unhealthy alcohol use. For concerning screenings had a discussion with the patient, provided patient education, and recommended follow-up with primary care provider when appropriate. If patient noted with a risk of falling, they received education on strength, gait, and balance training to prevent future risk of falling. Portions of this note may have been carried over from the previous visit and updated as appropriate. Please note this office utilizes paper charting in addition to the electronic medical record. A list of current medications, vitals, and PMH is available there as the clinical staff outside of myself do not have access to [employer] charting during the clinic day operations. As part of providing quality comprehensive care the current medications, vitals, and PMH were reviewed in the paper chart. Assessment and Plan Assessment and Plan (1) Lumbar spondylosis: (2) Lumbar stenosis with neurogenic claudication: (3) Sacroiliitis: (4) Right hip pain: Plan 84 year old female with chronic low back and right hip pain unresponsive to > 6 weeks of HEP and cannot tolerate PT due to severe pain, utilizing tylenol without improvement. cannot take NSAIds. at this time update right hip and lumbar MRI without contrast to assess severe pain in consideration of interventional therapy vs surgical consult. decrease gabapentin 100mg TID. start baclofen 5-10mg TID prn pain/spasms. declining NS consultation. briefly discussed scs, however pt would need to be evaluated by NS first. f/u once imaging complete
== END 2024-10-09 08:26 | disposition home or self-care (01) ==
LOC: PM 08:25
PROVIDERS: Visit Provider Nurse Practitioner
DX: M47.816 Spondylosis without myelopathy or radiculopathy, lumbar region (principal); M48.062 Spinal stenosis, lumbar region with neurogenic claudication; M46.1 Sacroiliitis, not elsewhere classified; M25.551 Pain in right hip
CPT/HCPCS: G0463

== ENCOUNTER 2024-10-17 12:17 | Outpatient (OUT) | payer MEDICARE, BC, SELFPAY ==
--- NOTE | 2024-10-17 12:20 | MR_ITS ---
The [place] [address] Patient Name: CEDRICK LEGER MRN: [id number] date: 1940 Sex: F Assigned Patient Location: MRI Current Patient Location: Accession/Order Number: [id number] Exam Date: 10/18/2024 00:17 Report Date: 10/18/2024 00:20 At the request of: BOSTON KOWALSKI NP Procedure: MR hip RT wo con MR hip RT wo con 10/17/2024 1:43 PM SIGNS AND SYMPTOMS: ^Pain in right hip PROTOCOL: Multiplanar multisequence MR images of the right hip without IV contrast COMPARISON: None. FINDINGS: Alignment: Normal. Femoroacetabular impingement anatomy: None Dysplasia: None. Fluid: No joint effusion. Labrum: Grossly intact. Cartilage: Femoral: There is mild partial thickness chondromalacia. Acetabular: There is mild partial thickness chondromalacia. Capsule/ligaments: Normal. Muscles/tendons/entheses: Flexors: Normal. Extensors: Normal. Abductors: Normal. Adductors: Normal. Rotators: Normal. Hamstrings: Normal. Bones (other than subarticular marrow): Normal. Vessels: Normal. Nerves: Visualized right sciatic and femoral nerves appear normal. Soft tissues: Normal. Viscera: Visualized pelvic structures appear normal. No lymphadenopathy by size criteria. No free fluid in the pelvis. MR/MR hip RT wo con IMPRESSION: The right hip is grossly intact with mild partial thickness chondromalacia on both sides of the joint space. The accompanying soft tissues are within normal limits. Impression dictated by: Krystian Gregory M.D. 10/18/2024 12:20 AM Dictation Location: [place] [address] Electronically authenticated by: [id number] Y Date: 10/18/2024 00:20
--- NOTE | 2024-10-17 12:20 | MR_ITS ---
The [address] [address] Patient Name: CEDRICK LEGER MRN: [id number] date: 1940 Sex: F Assigned Patient Location: MRI Current Patient Location: Accession/Order Number: [id number] Exam Date: 10/18/2024 00:20 Report Date: 10/18/2024 00:24 At the request of: BOSTON KOWALSKI NP Procedure: MR lumbar spine wo con MR lumbar spine wo con 10/17/2024 1:43 PM SIGNS AND SYMPTOMS: Low back pain radiating to right hip PROTOCOL: Multiplanar multisequence MR images of the lumbar spine without IV contrast COMPARISON: None. FINDINGS: The bones of the lumbar spine are in anatomic alignment. There is preservation of vertebral body heights. There is moderate to severe disc height loss at L4-5 and L5-S1. There is moderate disc height loss at L2-L3 with mild disc height loss throughout otherwise. There is Modic type II fatty endplate degenerative change at L4-L5. Benign-appearing hemangiomas are noted at L2 and L5. Conus terminates at the L1-L2 intervertebral disc level. No epidural or paraspinous fluid collection is appreciated. There is a stone in the gallbladder lumen. Simple cysts are noted in the renal cortices requiring no further follow-up. At T12-L1: There is a normal disc, central canal, and neural foramen. At L1-L2: There is a broad-based disc bulge. There is no significant spinal canal or neural foraminal narrowing. At L2-L3: There is a broad-based disc bulge with facet hypertrophy. There is mild left neural foraminal narrowing and mild spinal canal narrowing. At L3-L4: There is a broad-based disc bulge with facet hypertrophy. There is mild spinal canal narrowing and mild bilateral neural foraminal narrowing. At L4-L5: There is a circumferential disc bulge with endplate osteophyte formation and facet hypertrophy. There is mild left and moderate right neural foraminal narrowing with mild spinal canal narrowing. At L5-S1: There is a broad-based disc bulge with facet hypertrophy and endplate osteophyte formation. There is moderate bilateral neural foraminal narrowing with mild spinal canal narrowing. MR/MR lumbar spine wo con IMPRESSION: At L4-L5: There is a circumferential disc bulge with endplate osteophyte formation and facet hypertrophy. There is mild left and moderate right neural foraminal narrowing with mild spinal canal narrowing. At L5-S1: There is a broad-based disc bulge with facet hypertrophy and endplate osteophyte formation. There is moderate bilateral neural foraminal narrowing with mild spinal canal narrowing. Additional but lesser degrees of degenerative changes are noted as above. Impression dictated by: Krystian Gregory M.D. 10/18/2024 12:24 AM Dictation Location: [place] [address] Electronically authenticated by: [id number] Y Date: 10/18/2024 00:24
== END 2024-10-17 12:18 | disposition home or self-care (01) ==
LOC: MRI 12:17
PROVIDERS: Visit Provider Nurse Practitioner
DX: M48.062 Spinal stenosis, lumbar region with neurogenic claudication (principal); M25.551 Pain in right hip; M51.369 Other intervertebral disc degeneration, lumbar region without mention of lumbar back pain or lower extremity pain; M94.251 Chondromalacia, right hip
CPT/HCPCS: 72148; 73721

== ENCOUNTER 2024-10-30 14:17 | Outpatient (OUT) | payer MEDICARE, BC, SELFPAY ==
--- NOTE | 2024-10-30 14:17 | PM.CN ---
Consult Note: HPI Data of Consult Patient: known to practice within the last 3 years Consult date: 10/30/24 Requesting Physician: Shayy Santana NP Primary Care Provider: Non-Staff Physician, Family Provider: Leanna Quiroz Consult Narrative Reason for consult: low back pain Narrative: Erica Lopez a pleasant 84 year old female presents for evaluation of low back pain. pt has a hx of lumbar ddd, lumbar spondylosis, lumbar stenosis. pt has chronic moderate to severe low back pain unresponsive to > 6 weeks of PT/HEP, heat, ice, tylenol, nsaids. recently underwent lumbar MRI with results below. notes improvement since last visit as a result of right L4/5 L5/S1 TFESI, notes improvement in RLE pain. pain today 9-10 sharp in low back without numbness tingling weakness. over the last week pt has developed severe left calf pain without injury/known cause, was not evaluated by PCP, ER, or urgent care. pt also reporting tremors in her hands, feeling unsteady on her feet, facial swelling, and shortness of breath with exertion, again has not discussed with PCP or been evaluated by ER/urgent care for. cc:: CC: Shayy Santana NP Review of Systems ROS Musculoskeletal Reports: back pain and extremity pain (left calf); Denies: muscle cramps Neurological Reports: lack of coordination [facility] Medical History (Updated 11/02/24 @ 13:51 by Shayy Santana NP) Low back pain ?M54.50 - Low back pain, unspecified (ICD-10) Osteoarthritis ?M19.90 - Unspecified osteoarthritis, unspecified site (ICD-10) Glaucoma ?H40.9 - Unspecified glaucoma (ICD-10) Hypertension ?I10 - Essential (primary) hypertension (ICD-10) Surgical History (Updated 09/04/24 @ 11:28 by Ellen Godfrey) H/O thyroidectomy ?Z98.890 - Other specified postprocedural states (ICD-10) ?Z90.89 - Acquired absence of other organs (ICD-10) H/O: hysterectomy ?Z90.710 - Acquired absence of both cervix and uterus (ICD-10) Social History Little interest or pleasure in doing things: not at all Feeling down, depressed, or hopeless: not at all Meds Home Medications and Allergies Home Medications ?Medication ?Instructions ?Recorded ?Confirmed ?Type ascorbic acid (vitamin C) 1,000 mg 1 g PO DAILY 09/04/24 10/30/24 History tablet (Vitamin C) calcium phosphate,dibasic 77 tab PO DAILY 09/04/24 History mg-vitamin D3 400 unit tablet levothyroxine 100 mcg tablet 100 mcg PO DAILY 09/04/24 10/30/24 History (Synthroid) losartan 50 mg tablet 50 mg PO BID 09/04/24 10/30/24 History motion pills 09/04/24 History multivitamin 1 tab PO DAILY 09/04/24 10/30/24 History nifedipine 60 mg tablet,extended 60 mg PO DAILY 09/04/24 10/30/24 History release paroxetine HCl 20 mg tablet 20 mg PO DAILY 09/04/24 10/30/24 History polyethylene glycol 3350 17 17 g PO DAILY PRN constipation 09/04/24 10/30/24 History gram/dose oral powder (Miralax) propranolol 120 mg capsule,24 120 mg PO BID 09/04/24 10/30/24 History hr,extended release scopolamine HBr 0.4 mg tablet 20 mg PO PRN motion sickness 09/04/24 History gabapentin 600 mg tablet 600 mg PO TID #90 tabs 09/24/24 10/30/24 Rx baclofen 10 mg tablet mg 10/30/24 History buspirone 10 mg tablet mg 10/30/24 History gabapentin 100 mg capsule mg 10/30/24 History nifedipine 60 mg tablet,extended mg PO 10/30/24 History release 24 hr oxycodone-acetaminophen 5 mg-325 1 tab PO Q8H PRN pain 3 days #9 10/30/24 Rx mg tablet (Percocet) tabs Allergies Allergy/AdvReac Type Severity Reaction Status Date / Time morphine Allergy Mild Unknown Verified 10/30/24 15:40 Exam Constitutional Documenting provider has reviewed patient's vital signs: yes Common normals: no apparent distress, oriented x3, healthy appearing, alert and well nourished General appearance: cooperative [facility] Common normals: normocephalic, hearing grossly normal bilaterally and moist oral mucous membranes Head and scalp: normocephalic Eye Common normals: PERRL Pupil: PERRL Neck & C-Spine Common normals: full ROM General: normal visual inspection Chest Common normals: inspection of chest normal Respiratory Common normals: normal respiratory effort, no retractions and no use of accessory muscles Back & Pelvis Lumbar spine/lower back: ROM limited, pain with ROM and straight leg raise negative bilaterally Sacroiliac joints: SI joints normal Other: sensation intact BLE strength 5/5 in BLE left calf pain without edema, redness, warmth to touch positive facet loading L4-S1 Extremity Right lower extremity: hip joint Other: mild nonpitting edema noted to BLE pain noted with internal and external log roll Neuro Common normals: oriented x3 Sensorium/orientation: alert Gait (neuro): assistive device used other (wheelchair) Psych Common normals: mental status grossly normal, thought process normal, cooperative, affect normal, speech normal and activity/motor behavior normal Speech: normal speech Thought process: normal thought process Results Imaging lumbar MRI: Attestation: I have reviewed the pertinent imaging results. Radiologist's impression: FINDINGS: The bones of the lumbar spine are in anatomic alignment. There is preservation of vertebral body heights. There is moderate to severe disc height loss at L4-5 and L5-S1. There is moderate disc height loss at L2-L3 with mild disc height loss throughout otherwise. There is Modic type II fatty endplate degenerative change at L4-L5. Benign-appearing hemangiomas are noted at L2 and L5. Conus terminates at the L1-L2 intervertebral disc level. No epidural or paraspinous fluid collection is appreciated. There is a stone in the gallbladder lumen. Simple cysts are noted in the renal cortices requiring no further follow-up. At T12-L1: There is a normal disc, central canal, and neural foramen. At L1-L2: There is a broad-based disc bulge. There is no significant spinal canal or neural foraminal narrowing. At L2-L3: There is a broad-based disc bulge with facet hypertrophy. There is mild left neural foraminal narrowing and mild spinal canal narrowing. At L3-L4: There is a broad-based disc bulge with facet hypertrophy. There is mild spinal canal narrowing and mild bilateral neural foraminal narrowing. At L4-L5: There is a circumferential disc bulge with endplate osteophyte formation and facet hypertrophy. There is mild left and moderate right neural foraminal narrowing with mild spinal canal narrowing. At L5-S1: There is a broad-based disc bulge with facet hypertrophy and endplate osteophyte formation. There is moderate bilateral neural foraminal narrowing with mild spinal canal narrowing. Additional Findings Additional findings: If on a controlled substance or opioids, I have checked an OARRS report on this patient and there are no aberrancies noted in the prescribing history.??If on a controlled substance or opioid a drug screen was completed and reviewed within the last year, and if there has not been a drug screen completed we ordered one today to monitor higher risk, state monitored pain medication use. As part of providing excellent, safe, comprehensive care, the following was completed at our patient's visit: 1. A medication reconciliation and review to ensure accurate knowledge of current/active medications, including asking our patients to inform us about any [id number]-[id number] medications or herbal remedies/nutritional supplements/alternative remedies. 2. A review to specifically ensure our patients have had annual screening for screening for depression, screening for tobacco use, and screening for unhealthy alcohol use. For concerning screenings had a discussion with the patient, provided patient education, and recommended follow-up with primary care provider when appropriate. If patient noted with a risk of falling, they received education on strength, gait, and balance training to prevent future risk of falling. Portions of this note may have been carried over from the previous visit and updated as appropriate. Please note this office utilizes paper charting in addition to the electronic medical record. A list of current medications, vitals, and PMH is available there as the clinical staff outside of myself do not have access to [employer] charting during the clinic day operations. As part of providing quality comprehensive care the current medications, vitals, and PMH were reviewed in the paper chart. Assessment and Plan Assessment and Plan (1) Lumbar spondylosis: Assessment and Plan: The patient has had over 3 months of moderate to severe low back pain with functional impairment and inadequate response to conservative care including NSAIDS (unless there are contraindication such as concurrent blood thinners), multiple oral or topical pain medications, and home exercise program/physical therapy.? Patient has completed >6 weeks of guided home exercise program and/or formal physical therapy program without relief of their symptoms.? The Oswestry Disability Index was completed, and the patient scored a 60%.? The patient noted the following:?? moderate to severe pain impacting ADLs, sitting, standing, sleeping, social life, travel We discussed the risks and benefits of the procedure with the patient, and we are NOT planning on using sedation as outlined in the guidelines from Medicare unless there is a documented reason that sedation would be strongly recommended.?? ?The procedure will be completed with fluoroscopic guidance.? (2) Lumbar stenosis with neurogenic claudication: (3) Sacroiliitis: (4) Right hip pain: (5) Pain of left calf: (6) Suspected DVT (deep vein thrombosis): Plan pt agreeable to ER evaluation for acute left calf pain to rule out DVT, advised to f/u with PCP regarding other symptoms MRI of right hip and lumbar spine reviewed with pt and son, declining NS consult. we did discuss trialing bilateral L4-5 L5-S1 facet medial branch block x2 in consideration of RFA for facet mediated low back pain which pt would like to proceed with could consider intracept vs scs trial as discussed continue tylenol prn, continue baclofen 10mg TID PRN pain/spasms finds benefit without side effects, continue gabapentin 100mg TID (cannot tolerate higher doses) f/u after each MBB
== END 2024-10-30 14:18 | disposition home or self-care (01) ==
LOC: PM 14:17
PROVIDERS: Visit Provider Nurse Practitioner
DX: M47.816 Spondylosis without myelopathy or radiculopathy, lumbar region (principal); M48.062 Spinal stenosis, lumbar region with neurogenic claudication; M46.1 Sacroiliitis, not elsewhere classified; M25.551 Pain in right hip; M79.662 Pain in left lower leg
CPT/HCPCS: G0463

== ENCOUNTER 2024-10-30 15:31 | Emergency (ER) | payer MEDICARE, BC, SELFPAY ==
[2024-10-30 15:40] VITALS: BP 158/84; PULSE 67; TEMP 36.8; O2SAT 93; BMI 32.6
--- NOTE | 2024-10-30 15:47 | XR_ITS ---
The [address] [address] Patient Name: CEDRICK LEGER MRN: [id number] date: 1940 Sex: F Assigned Patient Location: ED.MAIN Current Patient Location: ED.MAIN Accession/Order Number: [id number] Exam Date: 10/30/2024 17:22 Report Date: 10/30/2024 17:23 At the request of: SIVAKUMAR JARAMILLO MD Procedure: XR tibia fibula LT 2V LEFT TIBIA AND FIBULA - - 2 views CLINICAL HISTORY: pain COMPARISON: None FINDINGS: No fracture or dislocation. Mild soft tissue swelling. XR/XR tibia fibula LT 2V IMPRESSION: Negative acute osseous abnormality. Impression dictated by: Tang Oenill M.D. 10/30/2024 5:23 PM Dictation Location: [place] [address] Electronically authenticated by: [id number] Y Date: 10/30/2024 17:23
--- NOTE | 2024-10-30 15:47 | ED.EXTPRO1 ---
HPI - Extremity Problem General Chief complaint: Extremity Problem, Nontraumatic Stated complaint: PAIN IN L CALF Time Seen by Provider: 10/30/24 15:43 Source: patient Mode of arrival: Wheelchair Limitations: no limitations History of Present Illness HPI Narrative: The patient is coming to us with a 1 week history of left leg pain, she denies any fall or trauma but she is complaining of pain whenever she put weight on her left leg her ankle and knee are normal but the pain is mostly toward the mid left leg The patient have a history of chronic back pain and neuropathy as well Related Data Home Medications ?Medication ?Instructions ?Recorded ?Confirmed ascorbic acid (vitamin C) 1,000 mg 1 g PO DAILY 09/04/24 10/30/24 tablet (Vitamin C) calcium phosphate,dibasic 77 tab PO DAILY 09/04/24 mg-vitamin D3 400 unit tablet levothyroxine 100 mcg tablet 100 mcg PO DAILY 09/04/24 10/30/24 (Synthroid) losartan 50 mg tablet 50 mg PO BID 09/04/24 10/30/24 motion pills 09/04/24 multivitamin 1 tab PO DAILY 09/04/24 10/30/24 nifedipine 60 mg tablet,extended 60 mg PO DAILY 09/04/24 10/30/24 release paroxetine HCl 20 mg tablet 20 mg PO DAILY 09/04/24 10/30/24 polyethylene glycol 3350 17 17 g PO DAILY PRN constipation 09/04/24 10/30/24 gram/dose oral powder (Miralax) propranolol 120 mg capsule,24 120 mg PO BID 09/04/24 10/30/24 hr,extended release scopolamine HBr 0.4 mg tablet 20 mg PO PRN motion sickness 09/04/24 baclofen 10 mg tablet mg 10/30/24 buspirone 10 mg tablet mg 10/30/24 gabapentin 100 mg capsule mg 10/30/24 nifedipine 60 mg tablet,extended mg PO 10/30/24 release 24 hr Previous Rx's ?Medication ?Instructions ?Recorded gabapentin 600 mg tablet 600 mg PO TID #90 tabs 09/24/24 oxycodone-acetaminophen 5 mg-325 1 tab PO Q8H PRN pain 3 days #9 10/30/24 mg tablet (Percocet) tabs Allergies Allergy/AdvReac Type Severity Reaction Status Date / Time morphine Allergy Mild Unknown Verified 10/30/24 15:40 Review of Systems ROS Status of ROS 10 or more systems reviewed and unremarkable except as noted in history and below [facility] Medical History (Updated 10/30/24 @ 18:07 by Raisa Silva MD) Low back pain ?M54.50 - Low back pain, unspecified (ICD-10) Osteoarthritis ?M19.90 - Unspecified osteoarthritis, unspecified site (ICD-10) Glaucoma ?H40.9 - Unspecified glaucoma (ICD-10) Hypertension ?I10 - Essential (primary) hypertension (ICD-10) Surgical History (Updated 09/04/24 @ 11:28 by Ellen Godfrey) H/O thyroidectomy ?Z98.890 - Other specified postprocedural states (ICD-10) ?Z90.89 - Acquired absence of other organs (ICD-10) H/O: hysterectomy ?Z90.710 - Acquired absence of both cervix and uterus (ICD-10) Social History Little interest or pleasure in doing things: not at all Feeling down, depressed, or hopeless: not at all Exam Narrative Exam Narrative: Nurses notes and vital signs reviewed and patient is not hypoxic. Left lower extremity exam: The patient have no obvious swelling that is seen on examination of the left lower extremity but the patient have tenderness upon palpation of the medial aspect of the left mid leg and the patient have a good anterior tibial pulse there is no ecchymosis no redness no hotness there is tenderness on palpation General: Well-appearing and in no apparent distress. Skin: Warm, dry, no pallor noted. No rash. Head: Normocephalic, atraumatic. Cardiovascular: Regular Rate and Rhythm without murmur, gallop or rub. Respiratory: No accessory muscle use or respiratory distress. Lungs are clear to auscultation, no wheezing, rales or rhonchi Chest Wall: no tenderness GI: Abdomen is soft, non-distended. Normal bowel sounds. No masses appreciated. No tenderness to palpation. No rebound, guarding, or rigidity noted. Neurological: A&O x4. No cranial nerve dysfunction observed. No truncal ataxia. Moves all extremities. Sensation intact. Psychiatric: Cooperative and interactive. Normal mood and affect. Constitutional Vital Signs, click to edit/add: Last Vital Signs Temp 98.3 F 07/31/25 15:40 Pulse 74 10/30/24 18:30 Resp 18 10/30/24 18:30 BP 158/84 H 10/30/24 15:40 Pulse Ox 98 10/30/24 18:30 O2 Del Method Room Air 10/30/24 15:40 Course Vital Signs Vital signs: Vital Signs Temperature 98.3 F 10/30/24 15:40 Pulse Rate 67 10/30/24 15:40 Respiratory Rate 18 10/30/24 15:40 Blood Pressure 158/84 H 10/30/24 15:40 Pulse Oximetry 93 L 10/30/24 15:40 Oxygen Delivery Method Room Air 10/30/24 15:40 Temperature 98.3 F 10/30/24 15:40 Pulse Rate 74 10/30/24 18:30 Respiratory Rate 18 10/30/24 18:30 Blood Pressure 158/84 H 10/30/24 15:40 Pulse Oximetry 98 10/30/24 18:30 Oxygen Delivery Method Room Air 10/30/24 15:40 MDM - Extremity (Nontraumatic) MDM Narrative Medical decision making narrative: Ultrasound of the patient left leg showed no DVT and the patient also had x-ray of the leg showed no pathology as well Patient provide N the ER she was able to ambulate she was discharged home to continue supportive care and the patient is to follow up with primary care physician in next 2-3 days or to return to the emergency department should any of the signs or symptoms worsen or new symptoms develop. The patient agrees with the following Diagnosis and Treatment plan and the patient will be discharged home. Discharge Plan Discharge Chief Complaint: Extremity Problem, Nontraumatic Clinical Impression: Leg pain Patient Disposition: Home, Self-Care Time of Disposition Decision: 18:07 Condition: Good Prescriptions / Home Meds: New oxycodone-acetaminophen [Percocet] 5-325 mg tablet 1 tab PO Q8H PRN (Reason: pain) 3 Days Qty: 9 0RF Discontinued acetaminophen [Tylenol] 325 mg tablet 325 mg PO Q6H PRN (Reason: pain) No Action gabapentin 600 mg tablet 600 mg PO TID Qty: 90 0RF losartan 50 mg tablet 50 mg PO BID levothyroxine [Synthroid] 100 mcg tablet 100 mcg PO DAILY polyethylene glycol 3350 [Miralax] 17 gram/dose powder 17 g PO DAILY PRN (Reason: constipation) motion pills multivitamin Tablet 1 tab PO DAILY nifedipine 60 mg tablet extended release 60 mg PO DAILY paroxetine HCl 20 mg tablet 20 mg PO DAILY propranolol 120 mg capsule,extended release 24 hr 120 mg PO BID scopolamine HBr 0.4 mg tablet 20 mg PO PRN (Reason: motion sickness) ascorbic acid (vitamin C) [Vitamin C] 1,000 mg tablet 1 g PO DAILY calcium phos,dibas-vitamin D3 77-400 mg-unit tablet PO DAILY baclofen 10 mg tablet nifedipine 60 mg tablet extended release 24hr PO buspirone 10 mg tablet gabapentin 100 mg capsule Print Language: Luxem[place]ish Instructions: Leg Pain (ED) Referrals: Physician,Non-Staff, MD [Primary Care Provider] - 1 week Discharge Date/Time: 10/30/24 18:31
[2024-10-30] MEDS: KETOROLAC TROMETHAMINE 30 MG/ML VIAL 15 MG IM (15:58)
[2024-10-30] MEDS: OXYCODONE HCL/ACETAMINOPHEN 5MG/325MG 1 TAB PO (15:59)
--- NOTE | 2024-10-30 17:59 | PC.NURSE ---
pt assisted to bedside commode by this rn
[2024-10-30 18:30] VITALS: PULSE 74; O2SAT 98
== END 2024-10-30 18:31 | disposition home or self-care (01) ==
PROVIDERS: Emergency Provider Emergency Medicine; PCP Family Medicine
DX: M79.662 Pain in left lower leg (principal); M47.816 Spondylosis without myelopathy or radiculopathy, lumbar region; M48.062 Spinal stenosis, lumbar region with neurogenic claudication; M46.1 Sacroiliitis, not elsewhere classified; M25.551 Pain in right hip; Z90.710 Acquired absence of both cervix and uterus
CPT/HCPCS: 73590; 93971; 96372; 99285; G0463; J1885

== ENCOUNTER 2024-11-17 08:42 | Day surgery (SDC) | payer MEDICARE, BC, SELFPAY ==
--- OUTSIDE RECORDS SUMMARY | 2024-11-03 11:15 | XMS_ITS | Encounter Summary ---
Author Organization [facility] Address [address] [place] [address] Phone Care Team Providers Care Liaison Officer Name Role Phone Leanna Quiroz MD Primary Care Provider + Reason for Referral * Therapy (Routine) - Authorized Specialty Diagnoses / Procedures Referred By Bill cross Referred To Contact Diagnoses Hypoxia Procedures Home O2 eval (desaturation screen) Leanna Quiroz MD [address] [address] Phone: tel: fax: Referral ID Status Reason Start Date Expiration Date V isits Requested Visits Authorized [id number] Authorized 11/03/2024 11/03/2025 1 1 * CV Imaging (Routine) - Authorized Specialty Diagnoses / Procedures Referred By Contyumiko t Referred To Contact Cardiology Diagnoses Shortness of breath Procedures Transthoracic Echo Complete SD ECHO TTHRC R-T 2D W/WOM-MODE COMPL SPEC&COLR D Leanna Quiroz MD [address] [address] Phone: tel: fax: Referral ID Status Reason Start Date Expiration Date Visits Requested Visits Authorized [id number] Authorized Perform Procedure 11/03/2024 11/03/2025 1 1 * PFT (Routine) - Authorized Specialty Diagnoses / Procedures Referred By Contac t Referred To Contact Diagnoses Shortness of breath Procedures Pulmonary Stress Test (6 Min. Walk) Leanna Quiroz MD [address] [place] [address] Phone: tel: fax: Referral ID Status Reason Start Date Expiration Date V isits Requested Visits Authorized [id number] Authorized 11/03/2024 11/03/2025 1 1 Reason for Visit * Reason Comments Medicare Annual Wellness Visit Subsequen t Hypertension Hypothyroidism Anxiety Med Management Gabapentin--taking 2 00mg TIDPain mgmt rx'de baclofen 10 up to TID ER Follow-up For left leg pain-no DVT-rx'de percocet--can't take because too strong Shortness of Breath Saw Valerie-rx'd albut erolPt would like testing for Oxygen Encounter Details Date Type Department Care Team (Late st Contact Info) Description 11/03/2024 11:15 AM EDT Office Visit [facility] Medical Office Building [address] [place] [phone] Leanna Quiroz MD [address] [place] [phone] Multiphasic screening (Primary Dx); Encounter for Medicare annual wellness exam; Primary hypertension; Postoperative hypothyroidism; Anxiety; Spinal stenosis of lumbar region, unspecified whether neurogenic claudication present; Shortness of breath; Early intervention counseling; Prediabetes; Hypoxia Social History Tobacco Use Types Packs/Day Years Used Date Smoking Tobacco: Never Smokeless Tobacco: Never Tobacco Cessation:Counseling Given: Not Answered Alcohol Use Standard Drinks/Week Comments Never 0 (1 standard drink = 0.6 oz pur e alcohol) PHQ-2 Answer Date Recorded Patient Health Questionnaire-2 Score 2 11/03/2024 Comments No Sex and Gender Information Value Date Recorded Sex Assigned at Not on file Legal Sex Female 11:21 AM EST Gender Identity Not on file Sexual Orientation Not on file documented as of this encounter Last Filed Vital Signs Vital Sign Reading Time Taken Comments Blood Pressure 108/60 11/03/2024 10:52 AM EDT Pulse 60 11/03/2024 10:52 AM EDT Temperature 36.2 C (97.1 F) 11/03/2024 10:52 AM EDT Respiratory Rate 16 11/03/2024 10:52 AM EDT Oxygen Saturation 96% 11/03/2024 10:52 AM EDT Inhaled Oxygen Concentration - - Weight 79.4 kg (175 lb) 11/03/2024 10:52 AM EDT Height 156.2 cm (5' 1.5 ) 11/03/2024 10:52 AM ED T Body Mass Index 32.53 11/03/2024 10:52 AM EDT documented in this encounter Functional Status * Over the past 2 weeks, how often have you been bothered by any of the following problems? Question Answer Date of Assessment Author Little interest or pleasure in doing things Several days 11/03/2024 11:08 AM PABLOT Candi Anaya M A Feeling down, depressed, or hopeless Several days 11/03/2024 11:08 AM EDT Candi Anaya M A Patient Health Questionnaire -2 Score 2 11/03/2024 11:08 AM EDT Candi Anaya M A * Question Answer Date of Assessment Author Trouble falling or staying asleep, or sleeping too much Nearly every day 11/03/2024 11:08 AM Candi Crawford M A Feeling tired or having little energy Nearly every day 11/03/2024 11:08 AM PABLOT Candi Anaya M A Poor appetite or overeating Not at all 11/03/2024 11 :08 AM EDT Candi Anaya MA Feeling bad about yourself - or that you are a failure or have let yourself or your family down Not at all 11/03/2024 11:08 AM Candi Crawford M A Trouble concentrating on things, such as reading the newspaper or watching television Not at all 11/03/2024 11:08 AM Candi Crawford M A Moving or speaking so slowly that other people could have noticed? Or the opposite - being so fidgety or restless that you have been moving around a lot more than usual. Several days 11/03/2024 11:08 AM EDT Candi Anaya M A Thoughts that you would be better off or hurting yourself in some way Not at all 11/03/2024 11:08 AM EDT Candi Anaya MA Patient Health Questionnaire-9 Score 9 11/03/2024 11:08 AM EDT Candi Anaya MA documented as of this encounter Patient Instructions * Patient Instructions* Leanna Quiroz MD - 11/03/2024 11:15 AM EDT Ways to Help Prevent Falls at Home Quick Tips ? Ask for help if you need it. Most people want to help! ? Get up slowly after sitting or laying down ? Wear a medical alert device or keep cell phone in your pocket ? Use night lights, especially areas near a bathroom ? Keep the items you use often within reach on a small stool or end table ? Use an assistive device such as walker or cane, as directed by provider/physical therapy ? Use a non-slip mat and grab bars in your bathroom. Look for home health sections for best options Other Areas to Focus On ? Exercise and nutrition: Regular exercise or taking a falls prevention class are great ways improve strength and balance. Don???t forget to stay hydrated and bring a snack! ? Medicine side effects: Some medicines can make you sleepy or dizzy, which could cause a fall. Askyour healthcare provider about the side effects your medicines could cause. Be sure to let them know if you take any vitamins or supplements as well. ? Tripping hazards: Remove items you could trip on, such as loose mats, rugs, cords, and clutter. Wear closed toe shoes with rubber soles. ? Health and wellness: Get regular checkups with your healthcare provider, plus routine vision and hearing screenings. Talk with your healthcare provider about: o Your medicines and the possible side effects - bring them in a bag if that is easier! o Problems with balance or feeling dizzy o Ways to promote bone health, such as Vitamin D and calcium supplements o Questions or concerns about falling *Ask your healthcare team if you have questions ??[facility], 2021 documented in this encounter Progress Notes * Candi Anaya MA - 11/03/2024 11:15 AM EDT All vax UTD per pt * Leanna Quiroz MD - 11/03/2024 11:15 AM EDT Subjective Reason for Visit: Erica Lopez is a 84 y.o. female here for a Medicare Wellness visit. All vax UTD per pt CHECKLIST REVIEWED AND COMPLETE FOR [facility] Medicare Annual Wellness Visit Subsequent, Hypertension, Hypothyroidism, Anxiety, Med Management (Gabapentin--taking 200mg TID/Pain mgmt rx'de baclofen 10 up to TID), ER Follow-up (For left leg pain-no DVT-rx'de percocet--can't take because too strong), and Shortness of Breath (Saw Valerie-rx'd albuterol/Pt would like testing for Oxygen) Past Medical, Surgical, and Family History reviewed and updated in chart. Reviewed all medications by prescribing practitioner or clinical pharmacist (such as prescriptions,OTCs, herbal therapies and supplements) and documented in the medical record. HPI Patient Self Assessment of Health Status Patient Self Assessment: Good Nutrition and Exercise: Current Diet: HEALTHY Diet always best, minimizing excess carbs, weight reduction advised if BMI not WNL, please maintain a NORMAL BMI 18.5-24.9 Adequate Fluid Intake: Yes Caffeine: -aware to minimize intake, <300mg best to even take in LESS Exercise Frequency: Regularly advised, weight bearing, strengthening, aerobic Functional Ability/Level of Safety: Home safety addressed: no active new concerns, fall risk addressed NO new hearing issues or concerns [place] in SOME and is deteriorating ADLs addressed and areas of assistance if present -noted ANY Cognitive Impairment Observed: No cognitive impairment observed Home Safety Risk Factors: None Patient Care Team: Leanna Quiroz MD as PCP - General HPI Problem List[1] Surgical History[2] PHQ2(-) No active depressed mood or not in crisis, 5min. spent in discussion. Review of Systems: NO Seizures NO CAD NO CVA This patient has NO history of recent Covid nor flu symptoms, NO Fever nor chills, NO Chest pain, chronic shortness of breath no paroxysmal nocturnal dyspnea, NO Nausea, vomiting, nor diarrhea, NO Hematochezia nor melena, NO Dysuria, hematuria, nor new incontinence issues NO new severe headaches nor neurological complaints, NO new issues with anxiety nor depression nor new psychiatric complaints, NO suicidal nor homicidal ideations. Does NOT want cardiac or pulmonary investigation Chronic pain low back and shoulders Sees pain mgmt Declines pulmonary or cardiac OBJECTIVE: BP 108/60 Pulse 60 Temp 36.2 ??C (97.1 ??F) (Temporal) Resp 16 Ht 1.562 m (5' 1.5 ) Wt 79.4 kg (175 lb) SpO2 96% BMI 32.53 kg/m?? General: alert, oriented, no acute distress. No obvious skin rashes noted. No gait disturbance noted. But in wheel chair Can only walk a few feet without sob Occ l hand and voice tremor Mood is pleasant, not tearful, no signs of emotional distress. Not appearing intoxicated or altered. No voiced delusions, Normal, appropriate behavior. HEENT: Normocephalic, atraumatic, Pupils round, reactive to light Extraocular motions intact and wnl Tympanic membranes normal Neck: no nuchal rigidity No masses palpable. No carotid bruits. No thyromegaly. Respiratory: Equal breath sounds No wheezes, rales, nor rhonchi No respiratory distress. Heart: Regular rate and rhythm, no murmurs no rubs/gallops Abdomen: no masses palpable, no rebound nor guarding, no rebound nor guarding.ovwt Extremities: NO cyanosis noted, no clubbing. Trace ble edema noted. 2+dorsalis pedis pulses. Normal-not antalgic, steady gait. Office Visit on 09/30/2024 Component Date Value Ref Range Status WHITE BLOOD CELL COUNT 09/30/2024 11.2 (H) 3.8 - 10.8 Thousand/uL Final RED BLOOD CELL COUNT 09/30/2024 4.21 3.80 - 5.10 Million/uL Final HEMOGLOBIN 09/30/2024 14.3 11.7 - 15.5 g/dL Final HEMATOCRIT 09/30/2024 43.1 35.0 - 45.0 % Final MCV 09/30/2024 102.4 (H) 80.0 - 100.0 fL Final MCH 09/30/2024 34.0 (H) 27.0 - 33.0 pg Final MCHC 09/30/2024 33.2 32.0 - 36.0 g/dL Final Comment: For adults, a slight decrease in the calculated MCHC value (in the range of 30 to 32 g/dL) is most likely not clinically significant; however, it should be interpreted with caution in correlation with other red cell parameters and the patient's clinical condition. RDW 09/30/2024 13.7 11.0 - 15.0 % Final PLATELET COUNT 09/30/2024 345 140 - 400 Thousand/uL Final MPV 09/30/2024 9.8 7.5 - 12.5 fL Final ABSOLUTE NEUTROPHILS 09/30/2024 8,266 (H) 1,500 - 7,800 cells/uL Final ABSOLUTE LYMPHOCYTES 09/30/2024 1,837 850 - 3,900 cells/uL Final ABSOLUTE MONOCYTES 09/30/2024 997 (H) 200 - 950 cells/uL Final ABSOLUTE EOSINOPHILS 09/30/2024 78 15 - 500 cells/uL Final ABSOLUTE BASOPHILS 09/30/2024 22 0 - 200 cells/uL Final NEUTROPHILS 09/30/2024 73.8 % Final LYMPHOCYTES 09/30/2024 16.4 % Final MONOCYTES 09/30/2024 8.9 % Final EOSINOPHILS 09/30/2024 0.7 % Final BASOPHILS 09/30/2024 0.2 % Final B TYPE NATRIURETIC PEPTIDE (BNP) 09/30/2024 210 (H) <100 pg/mL Final Comment: BNP levels increase with age in the general population with the highest values seen in individuals greater than 75 years of age. Reference: J. Am. Lamar. Cardiol. 2002; 40:976-982. GLUCOSE 09/30/2024 91 65 - 99 mg/dL Final Comment: Fasting reference interval UREA NITROGEN (BUN) 09/30/2024 27 (H) 7 - 25 mg/dL Final CREATININE 09/30/2024 0.88 0.60 - 0.95 mg/dL Final EGFR 09/30/2024 64 > OR = 60 mL/min/1.73m2 Final SODIUM 09/30/2024 141 135 - 146 mmol/L Final POTASSIUM 09/30/2024 5.3 3.5 - 5.3 mmol/L Final CHLORIDE 09/30/2024 98 98 - 110 mmol/L Final CARBON DIOXIDE 09/30/2024 32 20 - 32 mmol/L Final ELECTROLYTE BALANCE 09/30/2024 11 7 - 17 mmol/L (calc) Final CALCIUM 09/30/2024 10.7 (H) 8.6 - 10.4 mg/dL Final PROTEIN, TOTAL 09/30/2024 7.5 6.1 - 8.1 g/dL Final ALBUMIN 09/30/2024 4.7 3.6 - 5.1 g/dL Final BILIRUBIN, TOTAL 09/30/2024 0.5 0.2 - 1.2 mg/dL Final ALKALINE PHOSPHATASE 09/30/2024 84 37 - 153 U/L Final AST 09/30/2024 17 10 - 35 U/L Final ALT 09/30/2024 23 6 - 29 U/L Final Assessment/Plan Problem List Items Addressed This Visit Primary hypertension Anxiety Postoperative hypothyroidism Spinal stenosis of lumbar region Other Visit Diagnoses Multiphasic screening - Primary Encounter for Medicare annual wellness exam Shortness of breath Relevant Orders Pulmonary Stress Test (6 Min. Walk) Early intervention counseling Advance Care Planning Note Discussion Date: 11/03/24 Discussion Participants: patient 16 min spent discussing ACP w pt The patient wishes to discuss Advance Care Planning today and the following is a brief summary of our discussion. Patient has capacity to make their own medical decisions: Yes Health Care Agent/Surrogate Decision Maker documented in chart: Yes Documents on file and valid: Advance Directive/Living Will: Yes will bring Health Care Power of Export Freight Clerk: Yes Communication of Medical Status/Prognosis: yes Communication of Treatment Goals/Options: yes Treatment Decisions/involved with patient today yes Time Statement: Total face to face time spent on advance care planning was <30 minutes with <30 minutes spent in counseling, including the explanation. SEE ME AT NEXT REGULARLY SCHEDULED VISIT-sooner if condition deteriorates or new problems arise. PATIENT WOULD LIKE TO BE A FULL NO CODE NO uncontrolled DEPRESSION noted Assessed and reviewed for opioid use. NO EVIDENCE OF SIGNIFICANT DEMENTIA Signs and symptoms of concern with depression-if in crisis -(no current HI/SI) will let us know andproceed to ER Signs/symptoms of concern with dementia-and need to contact us if they occur discussed. ASCVD cannot calculate due to age addressed and risk reduction conversation took place All above counseling 15 minutes in conversation/documentation etc Mood counseling 5min- no uncontrolled depression, good support system, has crisis plan if occurs. Included BMI counseling and options if BMI>30 Sees pain mgmt QUESTIONS answered For sob-offered pulmonary follow up Will consider Sees pain mgmt Is aware of particular risks of pain meds in her age group Prediabetes sugars in spring Repeat in jan Offered meds for incontinence-hx glaucoma Consider javid Declines for now Next visit addressed -regular visit as scheduled and follow up sooner if condition deterioration ornew problems arise. This completes Erica Lopez ANNUAL MEDICARE WELLNESS VISIT today. If no other follow ups discussed: Please follow up in 1 year for NEXT ANNUAL MEDICARE WELLNESS VISIT. Erica Lopez -be aware that any referrals discussed should be placed today or tests/labs ordered should result in prompt scheduling today. If not done today-then a phone call for scheduling is expected in a timely manner(within 2 weeks). If testing is to be done-a result should be available to patient within 2 weeks time unless otherwise specified. You, the patient or caregiver, are responsible for making sure what was discussed is actually scheduled and completed. If suboptimal understanding of results of tests or referral reason-a follow up appointment with me should be made. If above does NOT occur-you are to connect with us for an explanation. Worsening sob deserves at least some workup although declines most-here w son Agrees to echo At home occ 80s p ox Aware she can call if further work up desired Some tremor-per hx-offered neuro-declines Follow up at next scheduled visit -as planned or directed today. Sooner if new or unresolved issues of concern. Erica Vargasey We know you have a choice for your health care, THANK YOU for choosing and [facility]. We APPRECIATE YOU. Sincerely, Leanna Quiroz MD (dr. Hartman) This documentation is subject to inadvertent typing and other similar clerical/grammatic errors etc. Patient was identified as a fall risk. Risk prevention instructions provided. [1] Patient Active Problem List Diagnosis Primary hypertension Anxiety Grief reaction Postoperative hypothyroidism Motion sickness Spinal stenosis of lumbar region [2] Past Surgical History: Procedure Laterality Date THYROIDECTOMY 2005 TOTAL ABDOMINAL HYSTERECTOMY W/ BILATERAL SALPINGOOPHORECTOMY 1984 documented in this encounter Plan of Treatment Upcoming Encounters Date Type Department Care Team (Late st Contact Info) Description 11/28/2024 12:00 PM EDT Appointment [address] [phone] 11/28/2024 1:30 PM EDT Appointment [address] [phone] 03/17/2025 1:00 PM EST Office Visit [facility] Medical Office Building [address] [phone] Leanna Quiroz MD [address] [place] [phone] Scheduled Orders Name Type Priority Associated Diagnoses Orde r Schedule Pulmonary Stress Test (6 Min. Walk) PFT Routine Shortness of breath Expected: 11/03/2024 (Approximate), Expires: 11/03/2025 Comprehensive Metabolic Panel Lab Routine Encounter for Medicare annual wellness exam Primary hypertension Postoperative hypothyroidism Anxiety Spinal stenosis of lumbar region, unspecified whether neurogenic claudication present Shortness of breath Multiphasic screening Early intervention counseling Expected: 11/03/2024 (Approximate), Expires: 11/03/2025 Hemoglobin A1C Lab Routine Encounter for Medicare annual wellness exam Primary hypertension Postoperative hypothyroidism Anxiety Spinal stenosis of lumbar region, unspecified whether neurogenic claudication present Shortness of breath Multiphasic screening Early intervention counseling Prediabetes Expected: 11/03/2024 (Approximate), Expires: 11/03/2025 Lipid Panel Lab Routine Encounter for Medicare annual wellness exam Primary hypertension Postoperative hypothyroidism Anxiety Spinal stenosis of lumbar region, unspecified whether neurogenic claudication present Shortness of breath Multiphasic screening Early intervention counseling Expected: 11/03/2024 (Approximate), Expires: 11/03/2025 Transthoracic Echo Complete Echocardiography Routine Shortness of breath Expected: 11/03/2024 (Approximate), Expires: 11/03/2026 Home O2 eval (desaturation screen) Respiratory Care Routine Hypoxia Ordered: 11/03/2024 documented as of this encounter Visit Diagnoses Diagnosis Multiphasic screening- Primary Encounter for Medicare annual wellness exam Primary hypertension Unspecified essential hypertension Postoperative hypothyroidism Postsurgical hypothyroidism Anxiety Anxiety state, unspecified Spinal stenosis of lumbar region, unspecified whether neurogenic claudication present Shortness of breath Early intervention counseling Other specified counseling Prediabetes Other abnormal glucose Hypoxia Hypoxemia documented in this encounter Additional Health Concerns Assessment Noted Time PHQ-9 Depression Total Score: 9 11/04/19 25 11:08 AM EDT A fall risk assessment has been complete d for the patient 11/03/2024 11:09 AM EDT documented as of this encounter Care Teams Liaison Officer Relationship Specialty Start Date End Date Leanna Quiroz MD [address] [address] PCP - General Family Medicine 05/19/24 documented as of this encounter
--- OUTSIDE RECORDS SUMMARY | 2024-11-17 08:46 | XMS_ITS | Clinical Summary ---
Author Organization [facility] Address [address] [place] [address] Phone Care Team Providers Care Gin Feeder Name Role Phone Leanna Quiroz MD Primary [...] by mouth once daily. Active HYDROcodone-acet aminophen ([place]) 5-325 mg tablet Take 1 tablet by [...] 3 mL 3 10/01/19 25 026 Active baclofen (Lioresal) 10 mg tablet Take 0.5-1 tablets (5-10 mg) by mouth 3 times a day. Active gabapentin (Neurontin) 100 mg capsuleIndicatio ns:Right sided sciatica Take 1 capsule (100 mg) by mouth 2 times a day. 60 capsule 1 07/30/19 25 025 Discontin ued(Dose adjustmen t) Active Problems Problem Noted Date Diagnosed Date Spinal stenosis of lumbar region 08/27/2024 Primary hypertension 07/25/2024 Anxiety 07/25/2024 Grief reaction 07/25/2024 Postoperative hypothyroidism 07/25/2024 Motion sickness 07/25/2024 Encounters Date Type Department Care Team Description 11/03/2024 11:15 AM EDT Office Visit [facility] [address] [address] Leanna Quiroz MD Multiphasic screening (Primary Dx); Encounter for Medicare annual wellness exam; Primary hypertension; Postoperative hypothyroidism; Anxiety; Spinal stenosis of lumbar region, unspecified whether neurogenic claudication present; Shortness of breath; Early intervention counseling; Prediabetes; Hypoxia 11/03/2024 Travel 09/30/2024 3:23 PM EDT - 09/30/2024 11:59 PM EDT [facility] [address] [facility] [address] [place] [address] Shortness of breath Discharge Disposition: Home 09/30/2024 2:00 PM EDT Office Visit [facility] Building [address] [facility] [address] [place] [address] Valerie Giang, JELANI Shortness of breath (Primary Dx); Leukocytosis, unspecified type 09/30/2024 Travel 09/29/2024 Telephone [facility] Building [address] [facility] [address] [place] [address] Leanna Quiroz MD 08/26/2024 Orders Only [facility] Building [address] [facility] [address] [place] [address] Leanna Quiroz MD 08/26/2024 Orders Only [facility] Building [address] [facility] [address] [place] [address] Chelle Youssef MA Anxiety (Primary Dx) from Last 3 Months Immunizations Immunization Administration Dates Next Due Tdap vaccine, age 7 year and older (BOOSTRIX, AD ACEL) 09/18/2024 Social History Tobacco Use Types Packs/Day Years [...] Mass Index 32.53 11/03/2024 10:52 AM EDT Plan of Treatment Upcoming Encounters Date Type Department Care Team (Late st Contact Info) Description 11/28/2024 12:00 PM EDT Appointment [address] [address] 11/28/2024 1:30 PM EDT Appointment [address] [address] 03/17/2025 1:00 PM EST Office Visit [facility] Office Building [address] [address] Leanna Quiroz MD [address] [address] Health Maintenance Due Date Last Done Comments Bone Density Scan 08/25/2003 COVID-19 Vaccine (1 - 2023-2 5 season) 2023 Influenza Vaccine (#1) 2024 Diabetes: Hemoglobin A1C 07/25/2025 07/25/2024 TSH Level 07/25/2025 07/25/2024 Medicare Annual Wellness Vis it (AWV) 11/04/2025 11/03/2024 Lipid Panel 07/25/2029 07/25/2024 DTaP/Tdap/Td Vaccines (2 [...] on patient's age to complete this topic Pneumococcal Vaccine Discontinued RSV High Risk: (Elderly (60+ ) or Population) Discontinued Rotavirus Vaccines Aged Out No longer eligible based on patient's age to complete this topic Zoster Vaccines Discontinued Procedures Procedure Name Priority Date/Time Associated Diagnosis [...] 09/30/2024 3:01 PM EDT Shortness of breath HEMOGLOBIN A1C Routine 07/25/2024 12:25 PM EDT Primary hypertension Postoperative hypothyroidism Anxiety Grief reaction Right sided sciatica Hyperglycemia LIPID PANEL Routine 07/25/2024 12:25 PM EDT Primary hypertension Postoperative hypothyroidism Anxiety Grief reaction Right sided sciatica TSH Routine 07/25/2024 12:25 PM EDT Primary hypertension Postoperative hypothyroidism Anxiety Grief reaction Right sided sciatica from Last 3 Months or Most Recently Relevant to Health Maintenance Results * XR chest 2 views (09/30/2024 3:28 PM EDT) Anatomical Region Laterality Modality Thoracic, Chest Computed Radiogr aphy 10/01/2024 6:05 PM EDT 10/01/2024 6:05 PM EDT Impressions 10/01/2024 6:04 PM EDT 1. No acute abnormality seen MACRO: None Signed by: Lobito Kline 10/01/2024 6:04 PM Dictation workstation: [id number] Narrative 10/01/2024 6:04 PM EDT Interpreted By: Lobito Kline, STUDY: XR CHEST 2 VIEWS; 09/30/2024 3:28 pm INDICATION: Signs/Symptoms:new onset SOB. ,R06.02 Shortness of breath COMPARISON: None. ACCESSION NUMBER(S): [id number] ORDERING CLINICIAN: VALERIE GIANG FINDINGS: CARDIOMEDIASTINAL SILHOUETTE: [...] Shortness of breath COMPARISON: None. ACCESSION NUMBER(S): [id number] ORDERING CLINICIAN: VALERIE GIANG FINDINGS: CARDIOMEDIASTINAL SILHOUETTE: Cardiomediastinal silhouette is normal in size and configuration. LUNGS: Lungs are clear. There is no consolidation. There is no effusion ABDOMEN: No remarkable upper abdominal findings. BONES: No acute osseous changes. IMPRESSION: 1. No acute abnormality seen MACRO: None Signed by: Lobito Kline 10/01/2024 6:04 PM Dictation workstation: [id number] us Valerie Giang CHURN TENDER-MOTEL KEEPER IMG XR PROCEDURES Fin al Result * (ABNORMAL) CBC and Auto Differential (09/30/2024 3:14 PM EDT) WHITE BLOOD CELL COUNT 11.2(H) 3.8 - 10.8 Thousand/ uL [facility] RED BLOOD CELL COUNT 4.21 3.80 - 5.10 Million/u L [facility] HEMOGLOBIN 14.3 11.7 - 15.5 g/dL [facility] HEMATOCRIT 43.1 35.0 - 45.0 % [facility] MCV 102.4(H) 80.0 - 100.0 fL [facility] MCH 34.0(H) 27.0 - 33.0 pg [facility] MCHC 33.2 32.0 - 36.0 g/dL [facility] Comment: For adults, a slight decrease in the calculated MCHC value (in the range of 30 to 32 g/dL) is most likely not clinically significant; however, it should be interpreted with caution in correlation with other red cell parameters and the patient's clinical condition. RDW 13.7 11.0 - 15.0 % [facility] PLATELET COUNT 345 140 - 400 Thousand/ uL [facility] MPV 9.8 7.5 - 12.5 fL [facility] ABSOLUTE NEUTROPHILS 8,266(H) 1,500 - 7,800 cells/uL [facility] ABSOLUTE LYMPHOCYTES 1,837 850 - 3,900 cells/uL [facility] ABSOLUTE MONOCYTES 997(H) 200 - 950 cells/uL [facility] ABSOLUTE EOSINOPHILS 78 15 - 500 cells/uL [facility] ABSOLUTE BASOPHILS 22 0 - 200 cells/uL [facility] NEUTROPHILS 73.8 % [facility] LYMPHOCYTES 16.4 % [facility] MONOCYTES 8.9 % [facility] EOSINOPHILS 0.7 % [facility] BASOPHILS 0.2 % [facility] Blood Venous blood specimen / Unknown 09/30/2024 3:14 PM EDT 09/30/2024 3:14 PM EDT us Valerie Giang CHURN TENDER-MOTEL KEEPER LAB BLOOD ORDERABLES Final Result [facility] [address] [facility], [address] [place] [address] * (ABNORMAL) B-type natriuretic peptide (09/30/2024 3:14 PM EDT) B TYPE NATRIURETIC PEPTIDE (BNP) 210(H) <100 pg/mL [facility] Comment: BNP levels increase with age in the general population with the highest values seen in individuals greater than 75 years of age. Reference: J. Am. Lamar. Cardiol. 2002; 40:976-982. Blood Venous blood specimen / Unknown 09/30/2024 3:14 PM EDT 09/30/2024 3:14 PM EDT Valerie Giang CHURN TENDER-MOTEL KEEPER LAB BLOOD ORDERABLES Final Result [facility] [address] [facility] [facility], [address] [place] [address] * (ABNORMAL) Comprehensive Metabolic Panel (09/30/2024 3:14 PM EDT) [facility] GLUCOSE 91 65 - 99 mg/dL [facility] Comment: Fasting reference interval UREA NITROGEN (BUN) 27(H) 7 - 25 mg/dL [facility] CREATININE 0.88 0.60 - 0.95 mg/dL [facility] EGFR 64 > OR = 60 mL/min/1. 73m2 [facility] SODIUM 141 135 - 146 mmol/L [facility] POTASSIUM 5.3 3.5 - 5.3 mmol/L [facility] CHLORIDE 98 98 - 110 mmol/L [facility] CARBON DIOXIDE 32 20 - 32 mmol/L [facility] ELECTROLYTE BALANCE 11 7 - 17 mmol/L (calc) [facility] CALCIUM 10.7(H) 8.6 - 10.4 mg/dL [facility] PROTEIN, TOTAL 7.5 6.1 - 8.1 g/dL [facility] ALBUMIN 4.7 3.6 - 5.1 g/dL [facility] BILIRUBIN, TOTAL 0.5 0.2 - 1.2 mg/dL [facility] ALKALINE PHOSPHATASE 84 37 - 153 U/L [facility] AST 17 10 - 35 U/L [facility] ALT 23 6 - 29 U/L [facility] Blood Venous blood specimen / Unknown 09/30/2024 3:14 PM EDT 09/30/2024 3:14 PM EDT [facility]LOOD ORDERAB[facility] Final Result [facility] [email or web address] [address], [address] [place] [phone] * ECG 12 Lead (09/30/2024 3:01 PM EDT) Narrative Valerie Giang, JELANI - 09/30/2024 3:01 PM EDT Sinus rhythm Normal ECG Valerie REEVESMOTEL KEEPER ECG ORDERABLES Final Result * Thyroid Stimulating Hormone (07/25/2024 12:25 PM EDT) [facility] TSH 0.61 0.40 - 4.50 mIU/L [facility] Blood Venous blood specimen / Unknown 07/25/2024 12:25 PM EDT 07/25/2024 12:26 PM EDT Narrative [facility] - 07/26/2024 7:53 AM EDT FASTING:NO FASTING: NO Leanna Quiroz MD LAB BLOOD ORDERABLES Fin al Result [facility] [email or web address] [address], [address] [place] [phone] * (ABNORMAL) Hemoglobin A1C (07/25/2024 12:25 PM EDT) [facility] HEMOGLOBIN A1c 5.9(H) <5.7 % [facility] Comment: For someone without known diabetes, [...] diabetes for children. eAG (mg/dL) 123 mg/dL [facility] eAG (mmol/L) 6.8 mmol/L [facility] Blood Venous blood specimen / Unknown 07/25/2024 12:25 PM EDT 07/25/2024 12:26 PM EDT Narrative [facility] - 07/26/2024 7:53 AM EDT FASTING:NO FASTING: NO us Leanna Quiroz MD LAB BLOOD ORDERABLES Fin al Result [place] [address] [facility], [address] [place] [phone] * (ABNORMAL) Lipid Panel (07/25/2024 12:25 PM EDT) [facility] CHOLESTEROL, TOTAL 178 <200 mg/dL [facility] HDL CHOLESTEROL 40(L) > OR = 50 mg/dL [facility] TRIGLYCERIDES 283(H) <150 mg/dL [facility] Comment: If a non-fasting specimen was collected, consider repeat triglyceride testing on a fasting specimen if clinically indicated. Kiesha et al. J. of Clin. Lipidol. 2015;9:129-169. LDL-CHOLESTEROL 98 mg/dL (calc) [facility] Comment: Reference range: <100 Desirable range <100 mg/dL for primary prevention; <70 mg/dL for patients with CHD or diabetic patients with > or = 2 CHD risk factors. LDL-C is now calculated using the Jesse-Verma calculation, which is a validated novel method providing better accuracy than the Friedewald equation in the estimation of LDL-C. Jesse SS et al. NINFA. 2013;310(19): 6760-9093 (http://education.[employer]/faq/LVH318) CHOL/HDLC RATIO 4.5 <5.0 (calc) [email or web address] NON HDL CHOLESTEROL 138(H) <130 mg/dL (calc) [email or web address] Comment: For patients with diabetes plus 1 major ASCVD risk factor, treating to a non-HDL-C goal of <100 mg/dL (LDL-C of <70 mg/dL) is considered a therapeutic option. Blood Venous blood specimen / Unknown 07/25/2024 12:25 PM EDT 07/25/2024 12:26 PM EDT Narrative [facility] - 07/26/2024 7:53 AM EDT FASTING:NO FASTING: NO Leanna Quiroz MD LAB BLOOD ORDERABLES Fin al Result [email or web address] [address], [address] [place] [phone] from Last 3 Months or Most Recently Relevant to Health Maintenance Insurance MEDICARE PART A AND B [facility] Member Subscriber Plan / Payer (Ef fective 2021-Present) Name:Erica Lopez Relation to Subscriber:Self Name:Erica Lopez Payer ID:[id number] (NAIC) Type:Not on file Address: [address] MEDICARE PART A AND B Member Subscriber Plan / Payer (Ef fective 2005-Present) Name:JohnKarthik jeffa Member ID:[id number] Relation to Subscriber:Self Name:Erica Lopez Subscriber ID:[id number] Payer ID:Not on file Group ID:Not on file Type:Not on file Address: [facility] [id number] [place] [id number] [facility] Care Teams Gin Feeder Relationship Specialty Start Date End Date Leanna Quiroz MD [address] [place] [phone] PCP - General Family Medicine 05/19/24
--- OUTSIDE RECORDS SUMMARY | 2024-11-17 08:46 | XMS_ITS | Encounter Summary ---
Author Organization [facility] Address [address] [place] [address] Phone Care Team Providers Care Supervisor Customer Complaint Service Name Role Phone Leanna Quiroz MD Primary Care Provider + Encounter Details Date Type Department Care Team (Latest Contact Info) Description 11/03/2024 Travel Social History Tobacco Use Types Packs/Day [...] on file documented as of this encounter Functional Status * Over the past 2 weeks, how often have you been bothered by any of the following problems? Question Answer Date of Assessment Author Little interest or pleasure in doing things Several days 11/03/2024 11:08 AM Candi Crawford M A Feeling down, depressed, or hopeless Several days 11/03/2024 11:08 AM Candi Crawford M A Patient Health Questionnaire -2 Score 2 11/03/2024 11:08 AM Candi Crawford M A * Question Answer Date of Assessment Author Trouble falling or staying asleep, or sleeping too much Nearly every day 11/03/2024 11:08 AM Candi Crawford M A Feeling tired or having little energy Nearly every day 11/03/2024 11:08 AM Candi Crawford M A Poor appetite or overeating Not at all 11/03/2024 11 :08 AM EDT Candi Anaya MA Feeling bad about yourself - or that you are a failure or have let yourself or your family down Not at all 11/03/2024 11:08 AM EDT Candi Anaya M A Trouble concentrating on things, such as reading the newspaper or watching television Not at all 11/03/2024 11:08 AM EDT Candi Anaya M A Moving or speaking so slowly [...] Anaya MA documented as of this encounter Plan of Treatment Upcoming Encounters Date Type Department Care Team (Late st Contact Info) Description 11/28/2024 12:00 PM EDT Appointment [facility] [address] [place] [address] 11/28/2024 1:30 PM EDT Appointment [address] [address] 03/17/2025 1:00 PM EST Office Visit [facility] Medical Office Building [address] [address] Leanna Quiroz MD [address] [place] [phone] documented as of this encounter Visit Diagnoses Not on filedocumented in this encounter Additional Health Concerns Assessment Noted Time PHQ-9 Depression Total Score: 9 11/04/19 25 11:08 AM EDT A fall risk assessment has been complete d for the patient 11/03/2024 11:09 AM EDT documented as of this encounter Care Teams Supervisor Customer Complaint Service Relationship Specialty Start Date End Date Leanna Quiroz MD [address] [address] PCP - General Family Medicine 05/19/24 documented as of this encounter
[2024-11-17 08:59] VITALS: BP 143/77; PULSE 58; TEMP 36.1; O2SAT 94
[2024-11-17 09:58] VITALS: BP 176/81; PULSE 68; O2SAT 90
[2024-11-17 09:59] VITALS: BP 171/73; PULSE 71; O2SAT 93
[2024-11-17] MEDS: LIDOCAINE HCL 2% 400 MG/20 ML MDV INJ (10:03)
[2024-11-17] MEDS: BUPIVACAINE HCL 0.25% PF 25 MG/10 ML VIAL 8 ML INJ (10:03)
--- NOTE | 2024-11-17 10:16 | W.PM.PROCNOT ---
Date of procedure: 11/17/24 Pre-op diagnosis: Pain due to lumbar spondylosis without myelopathy Post-op diagnosis: same as pre-op Procedure: Procedure: Bilateral L4-5, l5-S1 medial branch block Medications: Bupivacaine 0.25% 6cc The patient was seen and examined in the preoperative holding area.? An informed consent was obtained and placed on the chart.? The patient was brought to the medical procedure unit and placed in the prone position.? A timeout was completed verifying correct patient, procedure site, positioning, plan, and special equipment.? Using aseptic technique, the needle was placed at left L4. Under direct fluoroscopic visualization a Quincke-tipped spinal needle was advanced to the junction of the superior articulating process with the transverse process at the designated medial branch segment.? Preceded by negative aspiration, the above-mentioned injectate was placed in 1 mL aliquots.? The procedure was repeated at left L5, S1.? The needle was removed and insertion site was covered. The same procedure, at the same levels, was completed on the right side. The patient was taken to the postprocedural recovery area and monitored for an appropriate length of time before found suitable for discharge in the company of a responsible adult. Anesthesia: Local Surgeon: Tori Lai Pathology: none sent Condition: stable Disposition: no change
== END 2024-11-17 10:10 | disposition home or self-care (01) ==
PROVIDERS: PCP Family Medicine; Visit Provider Anesthesiology
DX: M47.816 Spondylosis without myelopathy or radiculopathy, lumbar region (principal); M54.50 Low back pain, unspecified
CPT/HCPCS: 64493; 64494; J0665

== ENCOUNTER 2024-11-19 13:22 | Outpatient (OUT) | payer MEDICARE, BC, SELFPAY ==
--- NOTE | 2024-11-19 14:06 | PM.CN ---
Consult Note: HPI Data of Consult Patient: known to practice within the last 3 years Consult date: 11/19/24 Requesting Physician: Shayy Santana NP Primary Care Provider: ANDREA QUIROZ MD Family Provider: Andrea Quiroz Consult Narrative Reason for consult: low back pain Narrative: Erica Lopez a pleasant 84 year old female presents for evaluation of low back pain. pt has a hx of lumbar ddd, lumbar spondylosis, lumbar stenosis. pt has chronic moderate to severe low back pain unresponsive to > 6 weeks of PT/HEP, heat, ice, tylenol, nsaids. recently underwent lumbar MRI with results below. right L4/5 L5/S1 TFESI provided >80% improvement while anesthetized no ongoing relief, recent bilateral L4-5 L5-S1 MBB #1 with less than 80% improvement while anesthetized. since last visit notes worsening right leg pain. cc:: CC: Shayy Santana NP Review of Systems ROS Musculoskeletal Reports: back pain and extremity pain (left calf); Denies: muscle cramps Neurological Reports: lack of coordination PFSH PFS Medical History (Updated 11/02/24 @ 13:51 by Shayy Santana NP) Low back pain ?M54.50 - Low back pain, unspecified (ICD-10) Osteoarthritis ?M19.90 - Unspecified osteoarthritis, unspecified site (ICD-10) Glaucoma ?H40.9 - Unspecified glaucoma (ICD-10) Hypertension ?I10 - Essential (primary) hypertension (ICD-10) Surgical History (Updated 09/04/24 @ 11:28 by Ellen Godfrey) H/O thyroidectomy ?Z98.890 - Other specified postprocedural states (ICD-10) ?Z90.89 - Acquired absence of other organs (ICD-10) H/O: hysterectomy ?Z90.710 - Acquired absence of both cervix and uterus (ICD-10) Social History Little interest or pleasure in doing things: not at all Feeling down, depressed, or hopeless: not at all Meds Home Medications and Allergies Home Medications ?Medication ?Instructions ?Recorded ?Confirmed ?Type calcium phosphate,dibasic 77 tab PO DAILY 09/04/24 History mg-vitamin D3 400 unit tablet levothyroxine 100 mcg tablet 100 mcg PO DAILY 09/04/24 11/17/24 History (Synthroid) losartan 50 mg tablet 50 mg PO BID 09/04/24 11/17/24 History motion pills 09/04/24 History multivitamin 1 tab PO DAILY 09/04/24 11/17/24 History nifedipine 60 mg tablet,extended 60 mg PO DAILY 09/04/24 11/17/24 History release paroxetine HCl 20 mg tablet 20 mg PO DAILY 09/04/24 11/17/24 History polyethylene glycol 3350 17 17 g PO DAILY PRN constipation 09/04/24 11/17/24 History gram/dose oral powder (Miralax) propranolol 120 mg capsule,24 120 mg PO BID 09/04/24 11/17/24 History hr,extended release scopolamine HBr 0.4 mg tablet 20 mg PO PRN motion sickness 09/04/24 History gabapentin 600 mg tablet 600 mg PO TID #90 tabs 09/24/24 11/17/24 Rx baclofen 10 mg tablet mg 10/30/24 History buspirone 10 mg tablet mg 10/30/24 History gabapentin 100 mg capsule mg 10/30/24 History oxycodone-acetaminophen 5 mg-325 1 tab PO Q8H PRN pain 3 days #9 10/30/24 11/17/24 Rx mg tablet (Percocet) tabs Allergies Allergy/AdvReac Type Severity Reaction Status Date / Time morphine Allergy Mild Unknown Verified 11/17/24 09:00 Exam Constitutional Documenting provider has reviewed patient's vital signs: yes Common normals: no apparent distress, oriented x3, healthy appearing, alert and well nourished General appearance: cooperative HENHI Common normals: normocephalic, hearing grossly normal bilaterally and moist oral mucous membranes Head and scalp: normocephalic Eye Common normals: PERRL Pupil: PERRL Neck & C-Spine Common normals: full ROM General: normal visual inspection Chest Common normals: inspection of chest normal Respiratory Common normals: normal respiratory effort, no retractions and no use of accessory muscles Back & Pelvis Lumbar spine/lower back: ROM limited, pain with ROM and straight leg raise positive right Other: pain noted to right L4,5,S1 strength 4/5 in BLE Neuro Common normals: oriented x3 Sensorium/orientation: alert Gait (neuro): assistive device used other (wheelchair) Psych Common normals: mental status grossly normal, thought process normal, cooperative, affect normal, speech normal and activity/motor behavior normal Speech: normal speech Thought process: normal thought process Results Imaging lumbar MRI: Attestation: I have reviewed the pertinent imaging results. Radiologist's impression: FINDINGS: The bones of the lumbar spine are in anatomic alignment. There is preservation of vertebral body heights. There is moderate to severe disc height loss at L4-5 and L5-S1. There is moderate disc height loss at L2-L3 with mild disc height loss throughout otherwise. There is Modic type II fatty endplate degenerative change at L4-L5. Benign-appearing hemangiomas are noted at L2 and L5. Conus terminates at the L1-L2 intervertebral disc level. No epidural or paraspinous fluid collection is appreciated. There is a stone in the gallbladder lumen. Simple cysts are noted in the renal cortices requiring no further follow-up. At T12-L1: There is a normal disc, central canal, and neural foramen. At L1-L2: There is a broad-based disc bulge. There is no significant spinal canal or neural foraminal narrowing. At L2-L3: There is a broad-based disc bulge with facet hypertrophy. There is mild left neural foraminal narrowing and mild spinal canal narrowing. At L3-L4: There is a broad-based disc bulge with facet hypertrophy. There is mild spinal canal narrowing and mild bilateral neural foraminal narrowing. At L4-L5: There is a circumferential disc bulge with endplate osteophyte formation and facet hypertrophy. There is mild left and moderate right neural foraminal narrowing with mild spinal canal narrowing. At L5-S1: There is a broad-based disc bulge with facet hypertrophy and endplate osteophyte formation. There is moderate bilateral neural foraminal narrowing with mild spinal canal narrowing. Additional Findings Additional findings: If on a controlled substance or opioids, I have checked an [place]AR[place] report on this patient and there are no aberrancies noted in the prescribing history.??If on a controlled substance or opioid a drug screen was completed and reviewed within the last year, and if there has not been a drug screen completed we ordered one today to monitor higher risk, state monitored pain medication use. As part of providing excellent, safe, comprehensive care, the following was completed at our patient's visit: 1. A medication reconciliation and review to ensure accurate knowledge of current/active medications, including asking our patients to inform us about any [id number] medications or herbal remedies/nutritional supplements/alternative remedies. 2. A review to specifically ensure our patients have had annual screening for screening for depression, screening for tobacco use, and screening for unhealthy alcohol use. For concerning screenings had a discussion with the patient, provided patient education, and recommended follow-up with primary care provider when appropriate. If patient noted with a risk of falling, they received education on strength, gait, and balance training to prevent future risk of falling. Portions of this note may have been carried over from the previous visit and updated as appropriate. Please note this office utilizes paper charting in addition to the electronic medical record. A list of current medications, vitals, and PMH is available there as the clinical staff outside of myself do not have access to [facility]emama charting during the clinic day operations. As part of providing quality comprehensive care the current medications, vitals, and PMH were reviewed in the paper chart. Assessment and Plan Assessment and Plan (1) Lumbar stenosis with neurogenic claudication: Assessment and Plan: The patient has had over 3 months of moderate to severe low back pain with functional impairment and inadequate response to conservative care including NSAIDS (unless there are contraindication such as concurrent blood thinners), multiple oral or topical pain medications, and home exercise program/physical therapy.? Patient has completed >6 weeks of guided home exercise program and/or formal physical therapy program without relief of their symptoms.? The Oswestry Disability Index was completed, and the patient scored a 60%.? The patient noted the following:?? moderate to severe pain impacting ADLs, sitting, standing, sleeping, social life, travel (2) Lumbar spondylosis: (3) Sacroiliitis: (4) Right hip pain: Plan refer to NS for evaluation consider scs trial if non surgical increase gabapentin 100mg QID per pt and family request, risks vs benefits reviewed can increase baclofen 10mg QID PRN pain/spasms if needed, risks vs benefits reviewed f/u after NS consultation
== END 2024-11-19 13:23 | disposition home or self-care (01) ==
LOC: PM 13:22
PROVIDERS: PCP Family Medicine; Visit Provider Nurse Practitioner
DX: M48.062 Spinal stenosis, lumbar region with neurogenic claudication (principal); M47.816 Spondylosis without myelopathy or radiculopathy, lumbar region; M46.1 Sacroiliitis, not elsewhere classified; M25.551 Pain in right hip
CPT/HCPCS: G0463

== ENCOUNTER 2024-12-19 11:21 | Outpatient (OUT) | payer MEDICARE, BC, SELFPAY ==
--- OUTSIDE RECORDS SUMMARY | 2024-12-11 13:30 | XMS_ITS | Encounter Summary ---
Author Organization [facility] Address [address] [place] [address] Phone Care Team Providers Care Divorce Mediator Name Role Phone Leanna Quiroz MD Primary Care Provider + Reason for Referral * Consultation (Routine) - Authorized Specialty Diagnoses / Procedures Referred By Bill t Referred To Contact Cardiology Diagnoses Primary hypertension Shortness of breath Encounter to establish care with new doctor Abnormal PFTs (pulmonary function tests) Weakness of both lower limbs Lower leg edema Fatigue, unspecified type Obesity (BMI 30-39.9) Lipid screening Abnormal echocardiogram LVH (left ventricular hypertrophy) Left ventricular outflow tract obstruction (HHS-HCC) Procedures Follow Up In Cardiology Jona Murillo MD [address] [address] Phone: tel: fax: Jona Murillo MD [address] [place] [address] Phone: tel: fax: Referral ID Status Reason Start Date Expiration Date V isits Requested Visits Authorized [id number] Authorized 12/11/2024 12/11/2025 1 1 * Cardiovascular (Routine) - Authorized Specialty Diagnoses / Procedures Referred By Contac t Referred To Contact Diagnoses Encounter to establish care with new doctor Procedures ECG 12 Lead Jona Murillo MD [address] [address] Phone: tel: fax: Referral ID Status Reason Start Date Expiration Date V isits Requested Visits Authorized [id number] Authorized 12/11/2024 12/11/2025 1 1 Reason for Visit * Reason Comments New Patient Visit Abnormal EKG * Consultation (Routine) - Authorized Specialty Diagnoses / Procedures Referred By Contac t Referred To Contact Cardiology Diagnoses Abnormal echocardiogram Leanna Quiroz MD [address] [facility] [address] [place] [address] Phone: tel: fax: Jacklyn Fonseca MD [address] [place] [address] [address] [place] [address] Phone: tel: fax: Referral ID Status Reason Start Date Expiration Date Visits Requested Visits Authorized [id number] Authorized Specialty Services Required 12/02/2024 12/02/2025 1 1 Encounter Details Date Type Department Care Team (Latest Contact Info) Description 12/11/2024 1:30 PM EDT Office Visit [address] [address] Jona Murillo MD [address] [place] [address] [address] [place], [place] [id number] Abnormal echocardiogram (Primary Dx); Primary hypertension; Shortness of breath; Encounter to establish care with new doctor; Anxiety; Abnormal PFTs (pulmonary function tests); Postoperative hypothyroidism; Weakness of both lower limbs; Lower leg edema; Pain in right leg; Fatigue, unspecified type; Tremor; Glaucoma, unspecified glaucoma type, unspecified laterality; Motion sickness, sequela; Spinal stenosis of lumbar region, unspecified whether neurogenic claudication present; Low back pain, unspecified back pain laterality, unspecified chronicity, unspecified whether sciatica present; Obesity (BMI 30-39.9); Never smoked tobacco; Lipid screening; LVH (left ventricular hypertrophy); Left ventricular outflow tract obstruction (HHS-HCC) Social History Tobacco Use Types Packs/Day Years [...] Sign Reading Time Taken Comments Blood Pressure 110/60 12/11/2024 1:16 PM EDT Pulse 59 12/11/2024 1:15 PM EDT Temperature - - Respiratory Rate - - Oxygen Saturation - - Inhaled Oxygen Concentration - - Weight 79.4 kg (175 lb) 12/11/2024 1:15 PM EDT Height 156.2 cm (5' 1.5 ) 12/11/2024 1:15 PM EDT Body Mass Index 32.53 12/11/2024 1:15 PM EDT documented in this encounter Patient Instructions * Patient Instructions* Iqra Duong LPN - 12/11/2024 1:30 PM EDT Please bring all medicines, vitamins, and herbal supplements with you when you come to the office. Prescriptions will not be filled unless you are compliant with your follow up appointments or have a follow up appointment scheduled as per instruction of your physician. Refills should be requested at the time of your visit. EKG done in office today BMI was above normal measurement. Current weight: 79.4 kg (175 lb) Weight change since last visit (-) denotes wt loss 0 lbs Weight loss needed to achieve BMI 25: 40.8 Lbs Weight loss needed to achieve BMI 30: 13.9 Lbs Provided instructions on dietary changes. * Attachments The following attachments cannot be sent through Care Everywhere. * Preventing Falls ED (British) * Heart Healthy Diet (British) documented in this encounter Progress Notes * Jona Murillo MD - 12/11/2024 1:30 PM EDT CARDIOLOGY CONSULTATION NOTE Patient: Erica Lopez Date of : 1940 Date: 12/11/2024 REASON FOR CONSULT / CHIEF COMPLAINT: Cardiology consultation to establish ongoing cardiovascular care IMPRESSION: Shortness of breath Edema Snoring Fatigue Hypertension Hypothyroidism, post thyroidectomy Tremor, essential Anxiety Spinal stenosis History of chronic motion sickness Prior total abdominal hysterectomy Otherwise as per assessment below. RECOMMENDATIONS: Patient regarding her history and findings. She does have positive for pulmonary stress test and iswaiting home oxygen. From a cardiovascular standpoint she appears to be doing well at this time. She is not interested repeat cardiovascular testing. Will treat her conservatively at her wishes. Would suggest exercise dietary program as tolerated. Hydration. Medication will be continued as present. [employer] portal use was encouraged. We will plan to see back in 8 months with Laboratory Studies and ECG as noted. Patient will follow up with their primary physician for general care. The patient knows to contact medical care earlier if need be. HPI: Erica Lopez was seen in cardiac evaluation at the [facility] office December 11, 2024. The patients problems are listed as in the impression above. Electronic medical records reviewed. Patient is a pleasant 84-year-old hypertensive woman in with prior significant cardiovascular history who was recently relocated to the [facility] and presents with her son to establishongoing cardiovascular care locally. Overall she states that she feels well. She still does have some dyspnea on exertion predominantly.She has some lower extremity edema. She saw pulmonary medicine who did a pulmonary stress walk testand her had desaturation. She is awaiting home oxygen. She did have a echocardiogram recently which noted normal ventricular function ejection fraction 60to 65% with diastolic dysfunction and moderate concentric left ventricular hypertrophy with moderate outflow tract obstruction noted. Medical treatment has been advised. She is not interested in undergoing a further cardiac testing at this time. Patient denies Chest Pain, Lightheadedness, Dizziness, TIA or CVA symptoms. No CHF. No Palpitations. No GI, or Bleeding Issues. No Recent Fever or Chills. Cardiovascular and general review of systems is otherwise negative. A 14-system review is otherwise negative, other than noted. ALLERGIES: Morphine MEDICATIONS: Current Outpatient Medications Medication Instructions acetaminophen (Tylenol) 325 mg tablet Every 6 hours PRN albuterol 2.5 mg, nebulization, 4 times daily PRN ascorbic acid (VITAMIN C) 500 mg, Daily baclofen (LIORESAL) 5-10 mg, 3 times daily busPIRone (BUSPAR) 10 mg, 2 times daily cholecalciferol (VITAMIN D3) 25 mcg, Daily diazePAM (VALIUM) 10 mg, oral, Daily gabapentin (NEURONTIN) 200 mg, oral, 3 times daily HYDROcodone-acetaminophen ([place]) 5-325 mg tablet 1 tablet, 2 times daily PRN levothyroxine (SYNTHROID, LEVOXYL) 100 mcg, oral, Daily, Take on an empty stomach at the same time each day, either 30 to 60 minutes prior to breakfast losartan (COZAAR) 50 mg, 2 times daily multivitamin tablet 1 tablet, Daily NIFEdipine ER (ADALAT CC) 60 mg, oral, Daily before breakfast, Do not crush, chew, or split. PARoxetine (PAXIL) 20 mg, Every morning polyethylene glycol (GLYCOLAX, MIRALAX) 17 g, Daily propranolol XL (INNOPRAN XL) 120 mg, 2 times daily scopolamine hydrobromide (SCOPOLAMINE HBR ORAL) 20 mg, As needed vit C/E/Zn/coppr/lutein/zeaxan (PRESERVISION AREDS-2 ORAL) Take by mouth. PAST MEDICAL HISTORY: As per impression above. No other significant past medical or surgical history appreciated. SOCIAL HISTORY: . 2 children. Retired. Denies tobacco alcohol or illicit drug use. FAMILY HISTORY: Negative family history of CAD VITALS: Vitals: 12/11/24 1316 BP: 110/60 Pulse: Wt Readings from Last 4 Encounters: 12/11/24 79.4 kg (175 lb) 11/03/24 79.4 kg (175 lb) 09/30/24 76.4 kg (168 lb 8 oz) 07/25/24 77.1 kg (170 lb) PHYSICAL EXAMINATION: General: No acute distress. Alert and oriented. Head And Neck Examination: No jugular venous distention, no carotid bruits, no mass. Carotid upstrokes preserved. Oral mucosa moist. No xanthelasma. Head and neck examination otherwise unremarkable. Lungs: Clear to auscultation and percussion. No wheezes, no rales, and no rhonchi. Chest: Excursion appeared to be normal. No chest wall tenderness on palpation. Heart: Normal S1 and S2. No S3. No S4. No rub. Grade 1/6 systolic murmur, best heard at the left sternal border. Point of maximal impulse was within normal limits. Abdomen: Soft. Nontender. No organomegaly. No bruits. No masses. Obese. Extremities: No bipedal edema. No clubbing. No cyanosis. Pulses are strong throughout. No bruits. Musculoskeletal Exam: No ulcers, otherwise unremarkable. Neuro: Neurologically appeared grossly intact. ELECTROCARDIOGRAM: Sinus rhythm, low voltage, poor wave anterior progression, rate 59. CARDIAC TESTING: Echocardiogram, 10/2024: Normal LV systolic function. LVEF 60 to 65%. Diastolic dysfunction Moderate concentric left ventricular hypertrophy Moderate LVOT with Valsalva. 1+ mitral and tricuspid regurgitation LABORATORY DATA: CBC: Lab Results Component Value Date WBC 11.2 (H) 09/30/2024 RBC 4.21 09/30/2024 HGB 14.3 09/30/2024 HCT 43.1 09/30/2024 PLT 345 09/30/2024 CMP: Lab Results Component Value Date NA 141 09/30/2024 K 5.3 09/30/2024 CL 98 09/30/2024 CO2 32 09/30/2024 BUN 27 (H) 09/30/2024 CREATININE 0.88 09/30/2024 GLUCOSE 91 09/30/2024 CALCIUM 10.7 (H) 09/30/2024 Lipid Profile: Lab Results Component Value Date CHOL 178 07/25/2024 TRIG 283 (H) 07/25/2024 HDL 40 (L) 07/25/2024 LDLCALC 98 07/25/2024 Hepatic Function Panel: Lab Results Component Value Date ALKPHOS 84 09/30/2024 ALT 23 09/30/2024 AST 17 09/30/2024 PROT 7.5 09/30/2024 BILITOT 0.5 09/30/2024 TSH: Lab Results Component Value Date TSH 0.61 07/25/2024 HgBA1c: Lab Results Component Value Date HGBA1C 5.9 (H) 07/25/2024 BNP: Lab Results Component Value Date BNP 210 (H) 09/30/2024 PROBLEM LIST: Problem List[1] Jona Murillo MD, [facility] / Cardiology Of Note: [employer] voice recognition dictation software was utilized partially in the preparation of this note,therefore, inaccuracies in spelling, word choice and punctuation may have occurred which were not recognized at the time of signing. Patient was seen and examined with total time of visit including chart preparation, rooming, and chart completion exceeding 40 minutes. I, Iqra Jerome LPN am scribing for, and in the presence of Dr. Jona Murillo MD, [facility]. I, Dr. Jona Murillo MD, [facility], personally performed the services described in the documentation as scribed by Iqra Jerome LPN in my presence, and confirm it is both accurate and complete. [1] Patient Active Problem List Diagnosis Primary hypertension Anxiety Grief reaction Postoperative hypothyroidism Motion sickness Spinal stenosis of lumbar region Obesity (BMI 30-39.9) Shortness of breath Pain in right leg Lipid screening Never smoked tobacco Inflammation of sacroiliac joint Low back pain, unspecified Abnormal PFTs (pulmonary function tests) Weakness of both lower limbs Glaucoma Lower leg edema Fatigue Tremor documented in this encounter Plan of Treatment Upcoming Encounters Date Type Department Care Team (Late st Contact Info) Description 03/17/2025 1:00 PM EST Office Visit [facility] [address] [facility] [address] [place] [address] Leanna Quiroz MD [address] [place] [address] [address] [place] [address] 08/20/2025 1:00 PM EDT Office Visit [facility] [address] [facility] [address] [place] [address] Jona Murillo MD [address] [place] [address] [address] [place] [address] Scheduled Orders Name Type Priority Associated Diagnoses Orde r Schedule Lipid Panel Lab Routine Shortness of breath Encounter to establish care with new doctor Fatigue, unspecified type Obesity (BMI 30-39.9) Lipid screening Expected: 12/11/2024, Expires: 12/11/2025 Magnesium Lab Routine Shortness of breath Encounter to establish care with new doctor Fatigue, unspecified type Expected: 12/11/2024, Expires: 12/11/2025 Comprehensive Metabolic Panel Lab Routine Shortness of breath Encounter to establish care with new doctor Fatigue, unspecified type Expected: 12/11/2024, Expires: 12/11/2025 CBC Lab Routine Shortness of breath Encounter to establish care with new doctor Postoperative hypothyroidism Fatigue, unspecified type Expected: 12/11/2024, Expires: 12/11/2025 Thyroid Stimulating Hormone Lab Routine Shortness of breath Encounter to establish care with new doctor Postoperative hypothyroidism Fatigue, unspecified type Expected: 12/11/2024, Expires: 12/11/2025 documented as of this encounter Procedures Procedure Name Priority Date/Time Associated Diagnosis Comments ECG 12-LEAD Routine 12/11/2024 1:30 PM EDT Encounter to establish care with new doctor documented in this encounter Results * ECG 12 Lead (12/11/2024 1:30 PM EDT) Narrative [facility]ACS - 12/11/2024 3:57 PM EDT Sinus rhythm, low voltage, poor wave anterior progression, rate 59. us Jona Murillo MD ECG ORDERABLES Final Res ult [facility] documented in this encounter Visit Diagnoses Diagnosis Abnormal echocardiogram- Primary Nonspecific (abnormal) findings on radiological and other examination of other intrathoracic organs Primary hypertension Unspecified essential hypertension Shortness of breath Encounter to establish care with new doctor Anxiety Anxiety state, unspecified Abnormal PFTs (pulmonary function tests) Nonspecific abnormal results of pulmonary system function study Postoperative hypothyroidism Postsurgical hypothyroidism Weakness of both lower limbs Muscle weakness (generalized) Lower leg edema Pain in right leg Fatigue, unspecified type Tremor Abnormal involuntary movements Glaucoma, unspecified glaucoma type, unspecified laterality Motion sickness, sequela Spinal stenosis of lumbar region, unspecified whether neurogenic claudication present Low back pain, unspecified back pain laterality, unspecified chronicity, unspecified whether sciatica present Obesity (BMI 30-39.9) Never smoked tobacco Lipid screening Screening for lipoid disorders LVH (left ventricular hypertrophy) Cardiomegaly Left ventricular outflow tract obstruction (HHS-HCC) Ventricular septal defect documented in this encounter Additional Health Concerns Assessment Noted Time PHQ-9 Depression Total Score: 9 11/04/19 11:08 AM EDT A fall risk assessment has been complete d for the patient 12/11/2024 1:15 PM EDT documented as of this encounter Care Teams Divorce Mediator Relationship Specialty Start Date End Date Leanna Quiroz MD [address] [address] PCP - General Family Medicine 05/19/24 documented as of this encounter
--- NOTE | 2024-12-19 | XR_ITS ---
The [address] [address] Patient Name: CEDRICK LEGER MRN: [id number] date: 1940 Sex: F Assigned Patient Location: [facility] Current Patient Location: [facility] Accession/Order Number: [id number] Exam Date: 12/19/2024 11:30 Report Date: 12/19/2024 12:08 At the request of: JULES THOMPSON MD Procedure: XR hip RT 1V w/ pelvis AP WEIGHTBEARING PELVIS AND RIGHT HIP - 2 views COMPARISON: MRI of right hip 10/17/2024 CLINICAL DATA: Right hip pain for years with recent worsening. No injury. AP weightbearing pelvis and crosstable lateral view of the right hip were obtained. No acute or healing fractures are identified. No dislocation is seen. The hip joint spaces are symmetric. There is no significant hypertrophy. There is minimal sclerosis at the SI joints. There is subtle dextroscoliotic curvature and degenerative change involving the lower imaged lumbar spine. XR/XR hip RT 1V w/ pelvis IMPRESSION: NO ACUTE BONY FINDINGS. Impression dictated by: Katerina Cat M.D. 12/19/2024 12:08 PM Dictation Location: [email or web address] Electronically authenticated by: [id number] Y Date: 12/19/2024 12:08
--- OUTSIDE RECORDS SUMMARY | 2024-12-19 11:22 | XMS_ITS | Encounter Summary ---
Author Organization [facility] Address [address] [place] [address] Phone Care Team Providers Care Principal Law Clerk Name Role Phone Leanna Quiroz MD Primary Care Provider + Encounter Details Date Type Department Care Team (Late st Contact Info) Description 11/29/2024 Results Follow-Up [facility] [address] [place] [phone] Leanna Quiroz MD [address] [place] [phone] Transthoracic Echo Complete Social History Tobacco Use Types Packs/Day Years [...] Description 03/17/2025 1:00 PM EST Office Visit [facility] [address] [phone] Leanna Quiroz MD [address] [place] [address] 08/20/2025 1:00 PM EDT Office Visit [facility] 7[address] [facility] [address] [place] [address] Jona Murillo MD 917 [facility] [address] [place] [address] documented as of this encounter Visit Diagnoses Not on filedocumented in this encounter Additional Health Concerns Assessment Noted Time PHQ-9 Depression Total Score: 9 11/04/19 11:08 AM EDT A fall risk assessment has been complete d for the patient 11/03/2024 11:09 AM EDT documented as of this encounter Care Teams Principal Law Clerk Relationship Specialty Start Date End Date Leanna Quiroz MD 7 [facility] 230 [place] [address] PCP - General Family Medicine 05/19/24 documented as of this encounter
--- OUTSIDE RECORDS SUMMARY | 2024-12-19 11:23 | XMS_ITS | Encounter Summary ---
Author Organization [facility] Address [address] [place] [address] Phone Care Team Providers Care Tile Installer Name Role Phone Leanna Quiroz MD Primary Care Provider + Encounter Details Date Type Department Care Team (Latest Contact Info) Description 12/11/2024 Travel Social History Tobacco Use Types Packs/Day [...] 03/17/2025 1:00 PM EST Office Visit [facility] 917 [facility] [address] [place] [address] Leanna Quiroz MD [address] [place] [address] [address] [place] [address] 08/20/2025 1:00 PM EDT Office Visit [address] [place] [address] Jona Murillo MD [address] [place] [address] [address] [place] [address] documented as of this encounter Visit Diagnoses Not on filedocumented in this encounter Additional Health Concerns Assessment Noted Time PHQ-9 Depression Total Score: 9 11/04/19 11:08 AM EDT A fall risk assessment has been complete d for the patient 12/11/2024 1:15 PM EDT documented as of this encounter Care Teams Tile Installer Relationship Specialty Start Date End Date Leanna Quiroz MD [address] [address] PCP - General Family Medicine 05/19/24 documented as of this encounter
--- OUTSIDE RECORDS SUMMARY | 2024-12-19 11:23 | XMS_ITS | Encounter Summary ---
Author Organization [facility] Address [address] [place] [address] Phone Care Team Providers Care Intermediate Accountant Name Role Phone Leanna Quiroz MD Primary Care Provider + Reason for Referral * Consultation (Routine) - Authorized Specialty Diagnoses / Procedures Referred By Contac t Referred To Contact Cardiology Diagnoses Abnormal echocardiogram Leanna Quiroz MD [address] [place] [address] Phone: tel: fax: Jacklyn Fonseca MD [address] [place] [phone] Phone: tel: fax: Referral ID Status Reason Start Date Expiration Date Visits Requested Visits Authorized [id number] Authorized Specialty Services Required 12/02/2024 12/02/2025 1 1 Encounter Details Date Type Department Care Team (Late st Contact Info) Description 12/02/2024 Orders Only [facility] [address] [phone] Leanna Quiroz MD [address] [place] [id number] Abnormal echocardiogram Social History Tobacco Use Types Packs/Day Years [...] Description 03/17/2025 1:00 PM EST Office Visit [facility] 917 [facility] [address] [place] [address] Leanna Quiroz MD [address] [place] [address] [address] [place] [address] 08/20/2025 1:00 PM EDT Office Visit [address] [place] [address] Jona Murillo MD [address] [place] [address] [address] [place] [address] Scheduled Referrals Name Type Priority Associated Diagnoses Orde r Schedule Referral to Cardiology Outpatient Referral Non-Urgent Abnormal echocardiogram Expected: 12/02/2024 (Approximate), Expires: 12/02/2025 documented as of this encounter Visit Diagnoses Diagnosis Abnormal echocardiogram Nonspecific (abnormal) findings on radiological and other examination of other intrathoracic organs documented in this encounter Additional Health Concerns Assessment Noted Time PHQ-9 Depression Total Score: 9 11/04/19 11:08 AM EDT A fall risk assessment has been complete d for the patient 11/03/2024 11:09 AM EDT documented as of this encounter Care Teams Intermediate Accountant Relationship Specialty Start Date End Date Leanna Quiroz MD [address] [place] [address] [address] [place] [address] PCP - General Family Medicine 05/19/24 documented as of this encounter
--- OUTSIDE RECORDS SUMMARY | 2024-12-19 11:23 | XMS_ITS | Clinical Summary ---
Author Organization [facility] Address [address] [place] [address] Phone Care Team Providers Care Pick Pack Worker Name Role Phone Leanna Quiroz MD Primary Care Provider + Allergies Active Allergy Reactions Criticality Noted Date Comments Morphine Dizziness,Nausea/vomiting 07/25/2024 Medications busPIRone (Buspar) 10 mg tablet Take 1 tablet (10 mg) by mouth 2 times a day. Active losartan (Cozaar) 50 mg tablet Take 1 tablet (50 mg) by mouth 2 times a day. Active PARoxetine (Paxil) 20 mg tablet Take [...] mild pain (1 - 3). Active vit C/E/Zn/coppr/lutei n/zeaxan (PRESERVISION AREDS-2 ORAL) Take by mouth. A [...] 1 tablet by mouth once daily. Active HYDROcodone-acetam inophen (Hughson) 5-325 mg tablet Take 1 tablet by mouth 2 times a day as needed for severe pain (7 - 10). Active gabapentin (Neurontin) 100 mg capsuleIndications :Right sided sciatica Take 2 capsules (200 mg) by mouth 3 times a day. 180 capsule 5 08/07/19 25 025 Active NIFEdipine ER (NIFEdipine XL) 60 mg 24 hr tabletIndications: Primary hypertension Take 1 tablet (60 mg) by mouth once daily in the morning. Take before meals. Do not crush, chew, or split. 90 tablet 1 09/23/19 25 Active albuterol 2.5 mg /3 mL (0.083 %) nebulizer solutionIndication s:Shortness of breath Take 3 mL (2.5 mg) by nebulization 4 times a day as needed for wheezing or shortness of breath. 3 mL 3 10/01/19 25 026 Active baclofen (Lioresal) 10 mg tablet Take 0.5-1 tablets (5-10 mg) by mouth 3 times a day. Active diazePAM (Valium) 10 mg tabletIndications: Anxiety Take 1 tablet (10 mg) by mouth once daily. 90 tablet 11/26/19 25 Active levothyroxine (Synthroid, Levoxyl) 100 mcg tabletIndications: Postoperative hypothyroidism Take 1 tablet (100 mcg) by mouth early in the morning.. Take on an empty stomach at the same time each day, either 30 to 60 minutes prior to breakfast 90 tablet 3 12/03/19 25 Active scopolamine hydrobromide (SCOPOLAMINE HBR ORAL) Take 20 mg by mouth if needed. 09/05/19 25 Active levothyroxine (Synthroid, Levoxyl) 100 mcg tablet Take 1 tablet (100 mcg) by mouth early in the morning.. Take on an empty stomach at the same time each day, either 30 to 60 minutes prior to breakfast 025 Discontin ued(Reord er) diazePAM (Valium) 10 mg tabletIndications: Anxiety Take 1 tablet (10 mg) by mouth once daily. 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) 12/11/2024 Inflammation of sacroiliac joint 11/19/2024 Low back pain, unspecified 11/17/2024 Spinal stenosis of lumbar region 08/27/2024 Primary hypertension 07/25/2024 Anxiety 07/25/2024 Grief reaction 07/25/2024 Postoperative hypothyroidism 07/25/2024 Motion sickness 07/25/2024 Encounters Date Type Department Care Team Description 12/11/2024 1:30 PM EDT Office Visit [address] [phone] Jona Murillo MD Abnormal echocardiogram (Primary Dx); Primary hypertension; Shortness [...] hypertrophy); Left ventricular outflow tract obstruction (HHS-HCC) 12/11/2024 Travel 12/08/2024 Telephone [facility] Building [address] [phone] Leanna Quiroz MD 12/02/2024 Orders Only [facility] [address] [phone] Leanna Quiroz MD Abnormal echocardiogram 11/29/2024 Results Follow-Up [facility] 7 [facility] [address] [place] [address] Leanna Quiroz MD Transthoracic Echo Complete 11/28/2024 12:04 PM EDT - 11/28/2024 11:59 PM EDT Hospital Encounter [facility] [address] [facility] [place] [address] Shortness of breath Discharge Disposition: Home 11/28/2024 12:00 PM EDT - 11/28/2024 12:03 PM EDT Hospital Encounter [facility] [address] [facility] [place] [address] Shortness of breath Discharge Disposition: Home 11/28/2024 Orders Only [facility] [address] [place] [phone] Candi Anaya MA Shortness of breath; Hypoxia 11/28/2024 Travel 11/24/2024 Orders Only [facility] Office [address] [phone] Leanna Quiroz MD Anxiety 11/03/2024 11:15 AM EDT Office Visit [facility] Office [address] [phone] Leanna Quiroz MD Multiphasic screening (Primary Dx); Encounter for Medicare annual wellness exam; Primary hypertension; Postoperative hypothyroidism; Anxiety; Spinal stenosis of lumbar region, unspecified whether neurogenic claudication present; Shortness of breath; Early intervention counseling; Prediabetes; Hypoxia 11/03/2024 Travel 09/30/2024 3:23 PM EDT - 09/30/2024 11:59 PM EDT Hospital Encounter [address] [phone] Shortness of breath Discharge Disposition: Home 09/30/2024 2:00 PM EDT Office Visit [facility] Building [address] [place] [address] [address] [place] [address] Serena Giang, GLUE MAKER BONE-VECTOR CONTROL SPECIALIST Shortness of breath (Primary Dx); Leukocytosis, unspecified type 09/30/2024 Travel 09/29/2024 Telephone [facility] [address] [phone] Leanna Quiroz MD from Last 3 Months Immunizations Immunization Administration Dates Next Due Tdap vaccine, age 7 year and older (BOOSTRIX, AD ACEL) 09/18/2024 Family History Medical History Relation Name Comments Cancer Father Relation Name Status Comments Father Social History Tobacco Use Types Packs/Day Years [...] Pulse 59 12/11/2024 1:15 PM EDT Temperature 36.2 C (97.1 F) 11/03/2024 10:52 AM EDT Respiratory Rate 16 11/03/2024 10:52 AM EDT Oxygen Saturation 96% 11/03/2024 10:52 AM EDT Inhaled Oxygen Concentration - - Weight 79.4 kg (175 lb) 12/11/2024 1:15 PM EDT Height 156.2 cm (5' 1.5 ) 12/11/2024 1:15 PM EDT Body Mass Index 32.53 12/11/2024 1:15 PM EDT Plan of Treatment Upcoming Encounters Date Type Department Care Team (Late st Contact Info) Description 03/17/2025 1:00 PM EST Office Visit [facility] Building [address] [phone] Leanna Quiroz MD [address] [place] [phone] 08/20/2025 1:00 PM EDT Office Visit [facility] 7[address] [facility] [address] [place] [address] Jona Murillo MD [address] [facility] [address] [place], [place] [id number] Health Maintenance Due Date Last Done Comments Bone Density Scan 08/25/2003 COVID-19 Vaccine ( - 2023-2 5 season) 2024 Influenza Vaccine (#1) 2024 Diabetes: Hemoglobin A1C [...] Encounter to establish care with new doctor TRANSTHORACIC ECHO (TTE) COMPLETE Routine 11/28/2024 1:51 PM EDT Shortness of breath HC SIX MINUTE WALK Routine 11/28/2024 12 :50 PM EDT Shortness of breath XR CHEST 2 VIEWS Routine 09/30/2024 3:28 [...] Recently Relevant to Health Maintenance Results * ECG 12 Lead (12/11/2024 1:30 PM EDT) Only the most recent of2 resultswithin the time period is included. Narrative CPACS - 12/11/2024 3:57 PM EDT Sinus rhythm, low voltage, poor wave anterior progression, rate 59. us Jona Murillo MD ECG ORDERABLES Final Res ult [facility] * TRANSTHORACIC ECHO (TTE) COMPLETE (11/28/2024 1:51 PM EDT) AV mn grad 2 mmHg SYNGO AV pk rob 1.08 m/s SYNGO LVOT diam 2.00 cm SYNGO MV E/A ratio 1.12 SYNGO Tricuspid annular plane systolic excursion 2.7 cm SYNGO LA vol index A/L 26.0 ml/m2 SYNGO LV EF 63 % SYNGO RV free wall pk S' 15.40 cm/s SYNGO RVSP 57 mmHg SYNGO LVIDd 3.60 cm SYNGO Aortic Valve Area by Continuity of Peak Velocity 2.97 cm2 SYNGO AV pk grad 5 mmHg SYNGO Aortic Valve Area by Continuity of VTI 3.70 cm2 SYNGO LV A4C EF 56.0 SYNGO 11/28/2024 1:08 PM EDT Impressions SYNGO - 11/28/2024 4:04 PM EDT CONCLUSIONS: 1. The left ventricular systolic function is normal with a visually estimated ejection fraction of 60-65%. 2. No regional wall motion abnormalities. 3. Spectral Doppler shows a Grade II (pseudonormal pattern) of left ventricular diastolic filling with an elevated left atrial pressure. 4. Peak velocity across the LVOT at rest is 1.02 m/sec, PG 4 mmHg. Peak velocity across the LVOT with valsalva is 2.46 m/sec, PG 24 mmHg. 5. There is normal right ventricular global systolic function. 6. Trace to mild mitral valve regurgitation. 7. 1+ tricuspid regurgitation. 8. The Doppler estimated RVSP is moderately elevated at 57 mmHg. 9. No previous available for comparison. 10. There is moderate concentric left ventricular hypertrophy. 11. There is severely increased septal and mildly increased posterior left ventricular wall thickness. Narrative [facility] - 11/28/2024 4:04 PM EDT [place] [id number] TRANSTHORACIC ECHOCARDIOGRAM REPORT Patient Name: ERICA Ni Physician: [id number] Felipe Tolbert MD, [facility] Study Date: 11/28/2024 Ordering Provider: [id number] LEANNA QUIROZ MRN/PID: [id number] Fellow: Nurse: Date of /Age: 5 1940 Computer Systems Design Analyst: Ena HANNAH Gender Assigned at F Additional Staff: : Height: 154.94 cm Admit Date: 11/28/2024 Weight: 79.38 kg Admission Status: Outpatient BSA / BMI: 1.78 m2 / 33.07 Department Location: [facility] kg/m2 Echo Lab Blood Pressure: 108 /60 mmHg Study Type: TRANSTHORACIC ECHO (TTE) COMPLETE Diagnosis/ICD: Shortness of breath-R06.02 Indication: SOB CPT Codes: Echo Complete w Full Doppler-99712 Patient History: Pertinent History: Dyspnea and HTN. Study Detail: The following Echo studies were performed: 2D, M-Mode, Doppler and color flow. The patient was awake. PHYSICIAN INTERPRETATION: Left Ventricle: The left ventricular systolic function is normal with a visually estimated ejection fraction of 60-65%. There is moderate concentric left ventricular hypertrophy. There are no regional wall motion abnormalities. The left ventricular cavity size is normal. There is severely increased septal and mildly increased posterior left ventricular wall thickness. Spectral Doppler shows a Grade II (pseudonormal pattern) of left ventricular diastolic filling with an elevated left atrial pressure. Peak velocity across the LVOT at rest is 1.02 m/sec, PG 4 mmHg. Peak velocity across the LVOT with valsalva is 2.46 m/sec, PG 24 mmHg. Left Atrium: The left atrial size is normal. Right Ventricle: The right ventricle is normal in size. There is normal right ventricular global systolic function. Right Atrium: The right atrial size is normal. Aortic Valve: The aortic valve is trileaflet. The aortic valve area by VTI is 3.70 cm with a peak velocity of 1.08 m/s. The peak and mean gradients are 5 mmHg and 2 mmHg, respectively, with a dimensionless index of 1.18. There is no evidence of aortic valve regurgitation. Mitral Valve: The mitral valve is normal in structure. There is trace to mild mitral valve regurgitation. The E Vmax is 0.86 m/s. Tricuspid Valve: The tricuspid valve is structurally normal. There is mild tricuspid regurgitation. The Doppler estimated right ventricular systolic pressure (RVSP) is moderately elevated at 57 mmHg. 1+ tricuspid regurgitation. Pulmonic Valve: The pulmonic valve is structurally normal. There is trace to mild pulmonic valve regurgitation. Pericardium: Trivial pericardial effusion. Aorta: The aortic root is normal. Systemic Veins: The inferior vena cava appears normal in size, with IVC inspiratory collapse greater than 50%. In comparison to the previous echocardiogram(s): There are no prior studies on this patient for comparison purposes. No previous available for comparison. CONCLUSIONS: 1. The left ventricular systolic function is normal with a visually estimated ejection fraction of 60-65%. 2. No regional wall motion abnormalities. 3. Spectral Doppler shows a Grade II (pseudonormal pattern) of left ventricular diastolic filling with an elevated left atrial pressure. 4. Peak velocity across the LVOT at rest is 1.02 m/sec, PG 4 mmHg. Peak velocity across the LVOT with valsalva is 2.46 m/sec, PG 24 mmHg. 5. There is normal right ventricular global systolic function. 6. Trace to mild mitral valve regurgitation. 7. 1+ tricuspid regurgitation. 8. The Doppler estimated RVSP is moderately elevated at 57 mmHg. 9. No previous available for comparison. 10. There is moderate concentric left ventricular hypertrophy. 11. There is severely increased septal and mildly increased posterior left ventricular wall thickness. QUANTITATIVE DATA SUMMARY: 2D MEASUREMENTS: Normal Ranges: Ao Root d: 3.00 cm (2.0-3.7cm) LAs: 3.10 cm (2.7-4.0cm) IVSd: 1.80 cm (0.6-1.1cm) LVPWd: 1.20 cm (0.6-1.1cm) LVIDd: 3.60 cm (3.9-5.9cm) LVIDs: 2.70 cm LV Mass Index: 112.6 g/m2 LV % FS 25.0 % LEFT ATRIUM: Normal Ranges: LA Vol A4C: 47.0 ml (22+/-6mL/m2) LA Vol A2C: 39.9 ml LA Vol BP: 46.5 ml LA Vol Index A4C: 26.4ml/m2 LA Vol Index A2C: 22.4 ml/m2 LA Vol Index BP: 26.0 ml/m2 LA Area A4C: 17.7 cm2 LA Area A2C: 15.2 cm2 LA [place] A4C: 5.7 cm LA [place] A2C: 4.9 cm LA Volume Index: 25.1 ml/m2 RIGHT ATRIUM: Normal Ranges: RA Vol A4C: 40.9 ml (8.3-19.5ml) RA Vol Index A4C: 22.9 ml/m2 RA Area A4C: 16.2 cm2 RA [place] A4C: 5.4 cm AORTA MEASUREMENTS: Normal Ranges: Asc Ao, d: 2.90 cm (2.1-3.4cm) LV SYSTOLIC FUNCTION: Normal Ranges: EF-A4C View: 56 % (>=55%) EF-Visual: 63 % LV EF Reported: 63 % LV DIASTOLIC FUNCTION: Normal Ranges: MV Peak E: 0.86 m/s (0.7-1.2 m/s) MV Peak A: 0.77 m/s (0.42-0.7 m/s) E/A Ratio: 1.12 (1.0-2.2) MV e' 0.087 m/s (>8.0) MV lateral e' 0.10 m/s MV medial e' 0.07 m/s E/e' Ratio: 9.90 (<8.0) MITRAL VALVE: Normal Ranges: MV DT: 184 msec (150-240msec) AORTIC VALVE: Normal Ranges: AoV Vmax: 1.08 m/s (<=1.7m/s) AoV Peak P.7 mmHg (<20mmHg) AoV Mean P.0 mmHg (1.7-11.5mmHg) LVOT Max Rob: 1.02 m/s (<=1.1m/s) AoV VTI: 21.90 cm (18-25cm) LVOT VTI: 25.80 cm LVOT Diameter: 2.00 cm (1.8-2.4cm) AoV Area, VTI: 3.70 cm2 (2.5-5.5cm2) AoV Area,Vmax: 2.97 cm2 (2.5-4.5cm2) AoV Dimensionless Index: 1.18 RIGHT VENTRICLE: RV Basal 3.50 cm RV Mid 2.30 cm RV Major 7.4 cm TAPSE: 26.7 mm RV s' 0.15 m/s TRICUSPID VALVE/RVSP: Normal Ranges: Peak TR Velocity: 3.68 m/s Est. RA Pressure: 3 mmHg RV Syst Pressure: 57 mmHg (< 30mmHg) IVC Diam: 1.50 cm PULMONIC VALVE: Normal Ranges: PV Accel Time: 121 msec (>120ms) PV Max Rob: 1.0 m/s (0.6-0.9m/s) PV Max P.9 mmHg [id number] Felipe Tolbert MD, FACC Electronically signed on 11/28/2024 at 4:04:26 PM Final Procedure Note Felipe Tolbert MD - 11/28/2024 [place] [id number] TRANSTHORACIC ECHOCARDIOGRAM REPORT Patient Name: ERICA LOPEZ Reading Physician: [id number] Tolbert MD,[facility] Study Date: 11/28/2024 Ordering Provider: [id number] QUIROZ MRN/PID: [id number] Fellow: Nurse: Date of /Age: 5 1940 Computer Systems Design Analyst: Ryia HANNAH Gender Assigned at F Additional Staff: : Height: 154.94 cm Admit Date: 11/28/2024 Weight: 79.38 kg Admission Status: Outpatient BSA / BMI: 1.78 m2 / 33.07 Department Location: [place] [address] Echo Lab Blood Pressure: 108 /60 mmHg Study Type: TRANSTHORACIC ECHO (TTE) COMPLETE Diagnosis/ICD: Shortness of breath-R06.02 Indication: SOB CPT Codes: Echo Complete w Full Doppler-[id number] Patient History: Pertinent History: Dyspnea and HTN. Study Detail: The following Echo studies were performed: 2D, M-Mode,Doppler and color flow. The patient was awake. PHYSICIAN INTERPRETATION: Left Ventricle: The left ventricular systolic function is normal with avisually estimated ejection fraction of 60-65%. There is moderateconcentric left ventricular hypertrophy. There are no regional wall motionabnormalities. The left ventricular cavity size is normal. There isseverely increased septal and mildly increased posterior left ventricularwall thickness. Spectral Doppler shows a Grade II (pseudonormal pattern)of left ventricular diastolic filling with an elevated left atrialpressure. Peak velocity across the LVOT at rest is 1.02 m/sec, PG 4mmHg. Peak velocity across the LVOT with valsalva is 2.46 m/sec, PG 24 mmHg. Left Atrium: The left atrial size is normal. Right Ventricle: The right ventricle is normal in size. There is normalright ventricular global systolic function. Right Atrium: The right atrial size is normal. Aortic Valve: The aortic valve is trileaflet. The aortic valve area by VTIis 3.70 cm with a peak velocity of 1.08 m/s. The peak and mean gradientsare 5 mmHg and 2 mmHg, respectively, with a dimensionless index of 1.18.There is no evidence of aortic valve regurgitation. Mitral Valve: The mitral valve is normal in structure. There is trace tomild mitral valve regurgitation. The E Vmax is 0.86 m/s. Tricuspid Valve: The tricuspid valve is structurally normal. There is mildtricuspid regurgitation. The Doppler estimated right ventricular systolicpressure (RVSP) is moderately elevated at 57 mmHg. 1+ tricuspidregurgitation. Pulmonic Valve: The pulmonic valve is structurally normal. There is traceto mild pulmonic valve regurgitation. Pericardium: Trivial pericardial effusion. Aorta: The aortic root is normal. Systemic Veins: The inferior vena cava appears normal in size, with IVCinspiratory collapse greater than 50%. In comparison to the previous echocardiogram(s): There are no priorstudies on this patient for comparison purposes. No previous available forcomparison. CONCLUSIONS: 1. The left ventricular systolic function is normal with a visuallyestimated ejection fraction of 60-65%. 2. No regional wall motion abnormalities. 3. Spectral Doppler shows a Grade II (pseudonormal pattern) of leftventricular diastolic filling with an elevated left atrial pressure. 4. Peak velocity across the LVOT at rest is 1.02 m/sec, PG 4 mmHg. Peak velocity across the LVOT with valsalva is 2.46 m/sec, PG 24mmHg. 5. There is normal right ventricular global systolic function. 6. Trace to mild mitral valve regurgitation. 7. 1+ tricuspid regurgitation. 8. The Doppler estimated RVSP is moderately elevated at 57 mmHg. 9. No previous available for comparison. 10. There is moderate concentric left ventricular hypertrophy. 11. There is severely increased septal and mildly increased posterior leftventricular wall thickness. QUANTITATIVE DATA SUMMARY: 2D MEASUREMENTS: Normal Ranges: Ao Root d: 3.00 cm (2.0-3.7cm) LAs: 3.10 cm (2.7-4.0cm) IVSd: 1.80 cm (0.6-1.1cm) LVPWd: 1.20 cm (0.6-1.1cm) LVIDd: 3.60 cm (3.9-5.9cm) LVIDs: 2.70 cm LV Mass Index: 112.6 g/m2 LV % FS 25.0 % LEFT ATRIUM: Normal Ranges: LA Vol A4C: 47.0 ml (22+/-6mL/m2) LA Vol A2C: 39.9 ml LA Vol BP: 46.5 ml LA Vol Index A4C: 26.4ml/m2 LA Vol Index A2C: 22.4 ml/m2 LA Vol Index BP: 26.0 ml/m2 LA Area A4C: 17.7 cm2 LA Area A2C: 15.2 cm2 LA [place] A4C: 5.7 cm LA [place] A2C: 4.9 cm LA Volume Index: 25.1 ml/m2 RIGHT ATRIUM: Normal Ranges: RA Vol A4C: 40.9 ml (8.3-19.5ml) RA Vol Index A4C: 22.9 ml/m2 RA Area A4C: 16.2 cm2 RA [place] A4C: 5.4 cm AORTA MEASUREMENTS: Normal Ranges: Asc Ao, d: 2.90 cm (2.1-3.4cm) LV SYSTOLIC FUNCTION: Normal Ranges: EF-A4C View: 56 % (>=55%) EF-Visual: 63 % LV EF Reported: 63 % LV DIASTOLIC FUNCTION: Normal Ranges: MV Peak E: 0.86 m/s (0.7-1.2 m/s) MV Peak A: 0.77 m/s (0.42-0.7 m/s) E/A Ratio: 1.12 (1.0-2.2) MV e' 0.087 m/s (>8.0) MV lateral e' 0.10 m/s MV medial e' 0.07 m/s E/e' Ratio: 9.90 (<8.0) MITRAL VALVE: Normal Ranges: MV DT: 184 msec (150-240msec) AORTIC VALVE: Normal Ranges: AoV Vmax: 1.08 m/s (<=1.7m/s) AoV Peak P.7 mmHg (<20mmHg) AoV Mean P.0 mmHg (1.7-11.5mmHg) LVOT Max Rob: 1.02 m/s (<=1.1m/s) AoV VTI: 21.90 cm (18-25cm) LVOT VTI: 25.80 cm LVOT Diameter: 2.00 cm (1.8-2.4cm) AoV Area, VTI: 3.70 cm2 (2.5-5.5cm2) AoV Area,Vmax: 2.97 cm2 (2.5-4.5cm2) AoV Dimensionless Index: 1.18 RIGHT VENTRICLE: RV Basal 3.50 cm RV Mid 2.30 cm RV Major 7.4 cm TAPSE: 26.7 mm RV s' 0.15 m/s TRICUSPID VALVE/RVSP: Normal Ranges: Peak TR Velocity: 3.68 m/s Est. RA Pressure: 3 mmHg RV Syst Pressure: 57 mmHg (< 30mmHg) IVC Diam: 1.50 cm PULMONIC VALVE: Normal Ranges: PV Accel Time: 121 msec (>120ms) PV Max Rob: 1.0 m/s (0.6-0.9m/s) PV Max P.9 mmHg [id number] Felipe Tolbert MD, FACC Electronically signed on 11/28/2024 at 4:04:26 PM Final IMPRESSION: CONCLUSIONS: 1. The left ventricular systolic function is normal with a visuallyestimated ejection fraction of 60-65%. 2. No regional wall motion abnormalities. 3. Spectral Doppler shows a Grade II (pseudonormal pattern) of leftventricular diastolic filling with an elevated left atrial pressure. 4. Peak velocity across the LVOT at rest is 1.02 m/sec, PG 4 mmHg. Peak velocity across the LVOT with valsalva is 2.46 m/sec, PG 24mmHg. 5. There is normal right ventricular global systolic function. 6. Trace to mild mitral valve regurgitation. 7. 1+ tricuspid regurgitation. 8. The Doppler estimated RVSP is moderately elevated at 57 mmHg. 9. No previous available for comparison. 10. There is moderate concentric left ventricular hypertrophy. 11. There is severely increased septal and mildly increased posterior leftventricular wall thickness. us Leanna Quiroz MD CV ECHO PROCEDURES Final Result [facility] * Pulmonary Stress Test (6 Min. Walk) (11/28/2024 12:50 PM EDT) 11/28/2024 12:4 6 PM EDT 11/28/2024 12:46 PM EDT us Leanna Quiroz MD PFT ORDERABLES Final Re sult [facility] * XR chest 2 views (09/30/2024 3:28 PM EDT) Anatomical Region Laterality Modality Thoracic, Chest Computed Radiogr aphy 10/01/2024 6:05 PM EDT 10/01/2024 6:05 PM EDT Impressions 10/01/2024 6:04 PM EDT 1. No acute abnormality seen MACRO: None Signed by: Lobito Kline 10/01/2024 6:04 PM Dictation workstation: [id number] Narrative 10/01/2024 6:04 PM EDT Interpreted By: Lobito Kline, STUDY: XR CHEST 2 VIEWS; 09/30/2024 3:28 pm INDICATION: Signs/Symptoms:new onset SOB. ,R06.02 Shortness of breath COMPARISON: None. ACCESSION NUMBER(S): [id number] ORDERING CLINICIAN: SERENA GIANG FINDINGS: CARDIOMEDIASTINAL SILHOUETTE: [...] Shortness of breath COMPARISON: None. ACCESSION NUMBER(S): [id number] ORDERING CLINICIAN: SERENA GIANG FINDINGS: CARDIOMEDIASTINAL SILHOUETTE: Cardiomediastinal silhouette is normal in size and configuration. LUNGS: Lungs are clear. There is no consolidation. There is no effusion ABDOMEN: No remarkable upper abdominal findings. BONES: No acute osseous changes. IMPRESSION: 1. No acute abnormality seen MACRO: None Signed by: Lobito Kline 10/01/2024 6:04 PM Dictation workstation: [id number] Serena Giang GLUE MAKER BONE-VECTOR CONTROL SPECIALIST IMG XR PROCEDURES Fin al Result * (ABNORMAL) CBC and Auto Differential (09/30/2024 3:14 PM EDT) WHITE BLOOD CELL COUNT 11.2(H) 3.8 - 10.8 Thousand/ uL [facility] RED BLOOD CELL COUNT 4.21 3.80 - 5.10 Million/u L [facility] HEMOGLOBIN 14.3 11.7 - 15.5 g/dL [facility] HEMATOCRIT 43.1 35.0 - 45.0 % [facility] MCV 102.4(H) 80.0 - 100.0 fL [facility] MCH 34.0(H) 27.0 - 33.0 pg [facility] MCHC 33.2 32.0 - 36.0 g/dL [facility] Comment: For adults, a slight decrease in the calculated MCHC value (in the range of 30 to 32 g/dL) is most likely not clinically significant; however, it should be interpreted with caution in correlation with other red cell parameters and the patient's clinical condition. RDW 13.7 11.0 - 15.0 % [facility] PLATELET COUNT 345 140 - 400 Thousand/ uL [facility] MPV 9.8 7.5 - 12.5 fL [facility] ABSOLUTE NEUTROPHILS 8,266(H) 1,500 - 7,800 cells/uL [facility] ABSOLUTE LYMPHOCYTES 1,837 850 - 3,900 cells/uL [facility] ABSOLUTE MONOCYTES 997(H) 200 - 950 cells/uL [facility] [facility] ABSOLUTE EOSINOPHILS 78 15 - 500 cells/uL [facility] ABSOLUTE BASOPHILS 22 0 - 200 cells/uL [facility] NEUTROPHILS 73.8 % [facility] LYMPHOCYTES 16.4 % [facility] MONOCYTES 8.9 % [facility] EOSINOPHILS 0.7 % [facility] BASOPHILS 0.2 % [facility] Blood Venous blood specimen / Unknown 09/30/2024 3:14 PM EDT 09/30/2024 3:14 PM EDT Serena Giang GLUE MAKER [facility] LAB BLOOD ORDERABLES Final Result Performing Organization Address [facility] Co de Phone Number [address], [address] [place] [phone] * (ABNORMAL) B-type natriuretic peptide (09/30/2024 3:14 PM EDT) [facility] B TYPE NATRIURETIC PEPTIDE (BNP) 210(H) <100 pg/mL [facility] Comment: BNP levels increase with age in the general population with the highest values seen in individuals greater than 75 years of age. Reference: J. Am. Lamar. Cardiol. 2002; 40:976-982. Blood Venous blood specimen / Unknown 09/30/2024 3:14 PM EDT 09/30/2024 3:14 PM EDT Serena [facility]ang [facility] Final Result Performing Organization Address [facility] Co de Phone Number [facility] [address], [address] [place], [place] [id number] * (ABNORMAL) Comprehensive Metabolic Panel (09/30/2024 3:14 PM EDT) [facility] GLUCOSE 91 65 - 99 mg/dL [facility] Comment: Fasting reference interval UREA NITROGEN (BUN) 27(H) 7 - 25 mg/dL [facility] CREATININE 0.88 0.60 - 0.95 mg/dL [facility] EGFR 64 > OR = 60 mL/min/1. 73m2 [facility] SODIUM 141 135 - 146 mmol/L [facility] POTASSIUM 5.3 3.5 - 5.3 mmol/L [facility] CHLORIDE 98 98 - 110 mmol/L [facility] CARBON DIOXIDE 32 20 - 32 mmol/L [facility] ELECTROLYTE BALANCE 11 7 - 17 mmol/L (calc) [facility] CALCIUM 10.7(H) 8.6 - 10.4 mg/dL [facility] PROTEIN, TOTAL 7.5 6.1 - 8.1 g/dL [facility] ALBUMIN 4.7 3.6 - 5.1 g/dL [facility] BILIRUBIN, TOTAL 0.5 0.2 - 1.2 mg/dL [facility] ALKALINE PHOSPHATASE 84 37 - 153 U/L [facility] AST 17 10 - 35 U/L [facility] ALT 23 6 - 29 U/L [facility] Blood Venous blood specimen / Unknown 09/30/2024 3:14 PM EDT 09/30/2024 3:14 PM EDT us Serena Giang GLUE MAKER [employer] LAB BLOOD ORDERABLES Final Result Performing Organization Address City/[facility]/ZIP Co de Phone Number [address] [phone] * Thyroid Stimulating Hormone (07/25/2024 12:25 PM EDT) TSH 0.61 0.40 - 4.50 mIU/L [facility] Blood Venous blood specimen / Unknown 07/25/2024 12:25 PM EDT 07/25/2024 12:26 PM EDT Narrative [facility] - 07/26/2024 7:53 AM EDT FASTING:NO FASTING: NO us Leanna Quiroz MD LAB BLOOD ORDERABLES Fin al Result Performing Organization Address City/[facility]/ZIP Co de Phone Number [address], [address] [place] [phone] * (ABNORMAL) Hemoglobin A1C (07/25/2024 12:25 PM EDT) Pathologist [facility] HEMOGLOBIN A1c 5.9(H) <5.7 % [facility] Comment: For someone without known diabetes, a [...] diabetes for children. eAG (mg/dL) 123 mg/dL [facility] eAG (mmol/L) 6.8 mmol/L [facility] Blood Venous blood specimen / Unknown 07/25/2024 12:25 PM EDT 07/25/2024 12:26 PM EDT Narrative [facility] 07/26/2024 7:53 AM EDT FASTING:NO FASTING: NO us Leanna Quiroz MD LAB BLOOD ORDERABLES Fin al Result [facility] [address] [facility], [address] [place] [phone] * (ABNORMAL) Lipid Panel (07/25/2024 12:25 PM EDT) [facility] CHOLESTEROL, TOTAL 178 <200 mg/dL [facility] HDL CHOLESTEROL 40(L) > OR = 50 mg/dL [facility] TRIGLYCERIDES 283(H) <150 mg/dL [facility] Comment: If a non-fasting specimen was collected, consider repeat triglyceride testing on a fasting specimen if clinically indicated. Kiesha et al. J. of Clin. Lipidol. 2015;9:129-169. LDL-CHOLESTEROL 98 mg/dL (calc) [facility] Comment: Reference range: <100 Desirable range <100 mg/dL for primary prevention; <70 mg/dL for patients with CHD or diabetic patients with > or = 2 CHD risk factors. LDL-C is now calculated using the New calculation, which is a validated novel method providing better accuracy than the Friedewald equation in the estimation of LDL-C. Jesse BAKER et al. NINFA. 2013;310(19): 8095-3979 (http://education.[employer]/faq/KYG589) CHOL/HDLC RATIO 4.5 <5.0 (calc) [employer] [facility] NON HDL CHOLESTEROL 138(H) <130 mg/dL (calc) [employer] [facility] Comment: For patients with diabetes plus 1 major ASCVD risk factor, treating to a non-HDL-C goal of <100 mg/dL (LDL-C of <70 mg/dL) is considered a therapeutic option. Blood Venous blood specimen / Unknown 07/25/2024 12:25 PM EDT 07/25/2024 12:26 PM EDT Narrative [facility] - 07/26/2024 7:53 AM EDT FASTING:NO FASTING: NO Leanna Quiroz MD LAB BLOOD ORDERABLES Fin al Result [facility] [employer] [facility] [address] [place] [address], [address] [place] [phone] from Last 3 Months or Most Recently Relevant to Health Maintenance Insurance MEDICARE PART A AND B [facility] MEDICARE PART A AND B [facility] Care Teams Pick Pack Worker Relationship Specialty Start Date End Date Leanna Quiroz MD [address] [place] [phone] PCP - General Family Medicine 05/19/24
--- OUTSIDE RECORDS SUMMARY | 2024-12-19 11:23 | XMS_ITS | Encounter Summary ---
Author Organization [facility] Address [address] [place] [address] Phone Care Team Providers Care Rail Filler Name Role Phone Leanna Quiroz MD Primary Care Provider + Encounter Details Date Type Department Care Team (Late st Contact Info) Description 11/28/2024 Orders Only [facility] Medical Office Building [address] [phone] Candi Anaya MA Shortness of breath; Hypoxia Social History Tobacco Use Types Packs/Day [...] Description 03/17/2025 1:00 PM EST Office Visit [facility] Medical Office Building [address] [phone] Leanna Quiroz MD [address] [place] [phone] 08/20/2025 1:00 PM EDT Office Visit [address] [phone] Jona Murillo MD [address] [facility] [address] [place] [address] documented as of this encounter Visit Diagnoses Diagnosis Shortness of breath Hypoxia Hypoxemia documented in this encounter Additional Health Concerns Assessment Noted Time PHQ-9 Depression Total Score: 9 11/04/19 11:08 AM EDT A fall risk assessment has been complete d for the patient 11/03/2024 11:09 AM EDT documented as of this encounter Care Teams Rail Filler Relationship Specialty Start Date End Date Leanna Quiroz MD [address] [facility] [address] [place] [address] PCP - General Family Medicine 05/19/24 documented as of this encounter
--- OUTSIDE RECORDS SUMMARY | 2024-12-19 11:23 | XMS_ITS | Encounter Summary ---
Author Organization [facility] Address [address] [place] [address] Phone Care Team Providers Care Diffusion Operator Name Role Phone Leanna Quiroz MD Primary Care Provider + Encounter Details Date Type Department Care Team (Late st Contact Info) Description 12/08/2024 Telephone [facility] Medical Office Building [address] [phone] Leanna Quiroz MD [address] [place] [phone] Social History Tobacco Use Types Packs/Day Years [...] * Telephone Encounter - Brenda Barney - 12/08/2024 11:32 AM EDT [facility] is faxing over a form for JOSE to sign stating she reviewed the testing for oxygen for pt. The page that needs signed is page 4 documented in this encounter Plan of Treatment Upcoming Encounters Date Type Department Care Team (Late st Contact Info) Description 03/17/2025 1:00 PM EST Office Visit [facility] Medical Office Building [address] [facility] [address] [place] [address] Leanna Quiroz MD [address] [facility] [address] [place] [address] 08/20/2025 1:00 PM EDT Office Visit [facility] [address] [facility] [address] [place] [phone] Jona Murillo MD [address] [facility] [address] [place] [address] documented as of this encounter Visit Diagnoses Not on filedocumented in this encounter Additional Health Concerns Assessment Noted Time PHQ-9 Depression Total Score: 9 11/04/19 11:08 AM EDT A fall risk assessment has been complete d for the patient 11/03/2024 11:09 AM EDT documented as of this encounter Care Teams Diffusion Operator Relationship Specialty Start Date End Date Leanna Quiroz MD [address] [place] [address] [address] [place] [address] PCP - General Family Medicine 05/19/24 documented as of this encounter
== END 2024-12-19 11:22 | disposition home or self-care (01) ==
LOC: RAD 11:21
PROVIDERS: PCP Family Medicine; Visit Provider Orthopaedic Surgery
DX: M25.551 Pain in right hip (principal)
CPT/HCPCS: 73501

== ENCOUNTER 2024-12-24 12:56 | Outpatient (OUT) | payer MEDICARE, BC, SELFPAY ==
--- NOTE | 2024-12-24 13:39 | P.CN_ITS ---
Consult Note: HPI Data of Consult Patient: known to practice within the last 3 years Consult date: 12/24/24 Requesting Physician: Shayy Santana NP Primary Care Provider: ANDREA QUIROZ MD Family Provider: Andrea Quiroz Consult Narrative Reason for consult: low back and right leg pain Narrative: Erica Lopez a pleasant 84 year old female presents for evaluation of low back pain and right leg pain. pt has a hx of lumbar ddd, lumbar spondylosis, lumbar stenosis. pt has chronic moderate to severe low back pain unresponsive to > 6 weeks of PT/HEP, heat, ice, tylenol, nsaids. recently underwent lumbar MRI with results below. right L4/5 L5/S1 TFESI provided >80% improvement while anesthetized per pt, as of today reports improvement ongoing in radicular pain. continues to endorse moderate to severe right hip and thigh pain. pt was evaluated by KIARA Lam who has since referred her to orthopedics and now sports medicine for her chronic right hip pain. cc:: CC: Shayy Santana NP Review of Systems ROS Musculoskeletal Reports: back pain and extremity pain (left calf); Denies: muscle cramps Neurological Reports: lack of coordination [facility] Medical History (Updated 11/02/24 @ 13:51 by Shayy Santana NP) Low back pain ?M54.50 - Low back pain, unspecified (ICD-10) Osteoarthritis ?M19.90 - Unspecified osteoarthritis, unspecified site (ICD-10) Glaucoma ?H40.9 - Unspecified glaucoma (ICD-10) Hypertension ?I10 - Essential (primary) hypertension (ICD-10) Surgical History (Updated 09/04/24 @ 11:28 by Ellen Godfrey) H/O thyroidectomy ?Z98.890 - Other specified postprocedural states (ICD-10) ?Z90.89 - Acquired absence of other organs (ICD-10) H/O: hysterectomy ?Z90.710 - Acquired absence of both cervix and uterus (ICD-10) Social History Little interest or pleasure in doing things: not at all Feeling down, depressed, or hopeless: not at all Meds Home Medications and Allergies Home Medications ?Medication ?Instructions ?Recorded ?Confirmed ?Type calcium phosphate,dibasic 77 tab PO DAILY 09/04/24 Hi story mg-vitamin D3 400 unit tablet levothyroxine 100 mcg tablet 100 mcg PO DAILY 09/04/24 11/17/24 History (Synthroid) losartan 50 mg tablet 50 mg PO BID 09/04/24 History motion pills 09/04/24 History multivitamin 1 tab PO DAILY 09/04/24 0811/24 History nifedipine 60 mg tablet,extended 60 mg PO DAILY 11/17/24 History release paroxetine HCl 20 mg tablet 20 mg PO DAILY 09/04/24 History polyethylene glycol 3350 17 17 g PO DAILY PRN constipa tion 09/04/24 11/17/24 History gram/dose oral powder (Miralax) propranolol 120 mg capsule,24 120 mg PO BID 09/04/24 0 11/17/24 History hr,extended release scopolamine HBr 0.4 mg tablet 20 mg PO PRN motion sick ness 09/04/24 History gabapentin 600 mg tablet 600 mg PO TID #90 tabs 09/2411/17/24 Rx baclofen 10 mg tablet mg 10/30/24 History buspirone 10 mg tablet mg 10/30/24 History gabapentin 100 mg capsule mg 10/30/24 History oxycodone-acetaminophen 5 mg-325 1 tab PO Q8H PRN pain 3 days #9 10/30/24 11/17/24 Rx mg tablet (Percocet) tabs Allergies Allergy/AdvReac Type Severity Reaction Status Date / Time morphine Allergy Mild Unknown Verified 11/17/24 09:00 Exam Constitutional Documenting provider has reviewed patient's vital signs: yes Common normals: no apparent distress, oriented x3, healthy appearing, alert and well nourished General appearance: cooperative [facility] Common normals: normocephalic, hearing grossly normal bilaterally and moist oral mucous membranes Head and scalp: normocephalic Eye Common normals: PERRL Pupil: PERRL Neck & C-Spine Common normals: full ROM General: normal visual inspection Chest Common normals: inspection of chest normal Respiratory Common normals: normal respiratory effort, no retractions and no use of accessory muscles Back & Pelvis Lumbar spine/lower back: ROM limited, pain with ROM and straight leg raise positive right Other: pain noted to right L4,5,S1 strength 4/5 in BLE Extremity Other: no pain with internal/external rotation of right hip mild tenderness over right GTB Neuro Common normals: oriented x3 Sensorium/orientation: alert Gait (neuro): assistive device used other (wheelchair) Psych Common normals: mental status grossly normal, thought process normal, cooperative, affect normal, speech normal and activity/motor behavior normal Speech: normal speech Thought process: normal thought process Results Imaging lumbar MRI: Attestation: I have reviewed the pertinent imaging results. Radiologist's impression: FINDINGS: The bones of the lumbar spine are in anatomic alignment. There is preservation of vertebral body heights. There is moderate to severe disc height loss at L4-5 and L5-S1. There is moderate disc height loss at L2-L3 with mild disc height loss throughout otherwise. There is Modic type II fatty endplate degenerative change at L4-L5. Benign-appearing hemangiomas are noted at L2 and L5. Conus terminates at the L1-L2 intervertebral disc level. No epidural or paraspinous fluid collection is appreciated. There is a stone in the gallbladder lumen. Simple cysts are noted in the renal cortices requiring no further follow-up. At T12-L1: There is a normal disc, central canal, and neural foramen. At L1-L2: There is a broad-based disc bulge. There is no significant spinal canal or neural foraminal narrowing. At L2-L3: There is a broad-based disc bulge with facet hypertrophy. There is mild left neural foraminal narrowing and mild spinal canal narrowing. At L3-L4: There is a broad-based disc bulge with facet hypertrophy. There is mild spinal canal narrowing and mild bilateral neural foraminal narrowing. At L4-L5: There is a circumferential disc bulge with endplate osteophyte formation and facet hypertrophy. There is mild left and moderate right neural foraminal narrowing with mild spinal canal narrowing. At L5-S1: There is a broad-based disc bulge with facet hypertrophy and endplate osteophyte formation. There is moderate bilateral neural foraminal narrowing with mild spinal canal narrowing. Additional Findings Additional findings: If on a controlled substance or opioids, I have checked an [place] report on this patient and there are no aberrancies noted in the prescribing history.??If on a controlled substance or opioid a drug screen was completed and reviewed within the last year, and if there has not been a drug screen completed we ordered one today to monitor higher risk, state monitored pain medication use. As part of providing excellent, safe, comprehensive care, the following was completed at our patient's visit: 1. A medication reconciliation and review to ensure accurate knowledge of current/active medications, including asking our patients to inform us about any nmaa-[id number] medications or herbal remedies/nutritional supplements/alternative remedies. 2. A review to specifically ensure our patients have had annual screening for screening for depression, screening for tobacco use, and screening for unhealthy alcohol use. For concerning screenings had a discussion with the patient, provided patient education, and recommended follow-up with primary care provider when appropriate. If patient noted with a risk of falling, they received education on strength, gait, and balance training to prevent future risk of falling. Portions of this note may have been carried over from the previous visit and updated as appropriate. Please note this office utilizes paper charting in addition to the electronic medical record. A list of current medications, vitals, and PMH is available there as the clinical staff outside of myself do not have access to [employer] charting during the clinic day operations. As part of providing quality comprehensive care the current medications, vitals, and PMH were reviewed in the paper chart. Assessment and Plan Assessment and Plan (1) Lumbar stenosis with neurogenic claudication: Assessment and Plan: The patient has had over 3 months of moderate to severe low back pain with functional impairment and inadequate response to conservative care including NSAIDS (unless there are contraindication such as concurrent blood thinners), multiple oral or topical pain medications, and home exercise program/physical therapy.? Patient has completed >6 weeks of guided home exercise program and/or formal physical therapy program without relief of their symptoms.? The Oswestry Disability Index was completed, and the patient scored a 64%.? The patient noted the following:?? moderate to severe pain impacting ADLs, sitting, standing, sleeping, social life, travel (2) Lumbar spondylosis: (3) Sacroiliitis: (4) Right hip pain: Plan Despite NS consultation stating her pain is not coming from her back, I do feel the pt is finding benefit from prior lumbar TFESI as evidence by improvement in pain on physical exam. defer scs trial at this time as pt is being further worked up by sports medicine and orthopedics continue gabapentin 100mg QID per pt and family request, risks vs benefits reviewed continue baclofen 10mg QID PRN pain/spasms if needed, risks vs benefits reviewed f/u 1 month
== END 2024-12-24 12:57 | disposition home or self-care (01) ==
LOC: PM 12:57
PROVIDERS: PCP Family Medicine; Visit Provider Nurse Practitioner
DX: M48.062 Spinal stenosis, lumbar region with neurogenic claudication (principal); M47.816 Spondylosis without myelopathy or radiculopathy, lumbar region; M46.1 Sacroiliitis, not elsewhere classified; M25.551 Pain in right hip
CPT/HCPCS: G0463

== ENCOUNTER 2025-01-06 13:42 | Outpatient (RCR) | payer MEDICARE, BC, SELFPAY | END 2025-01-07 07:26 | disposition home or self-care (01) | LOC: PT 13:42 | PROVIDERS: PCP Family Medicine; Visit Provider Nurse Practitioner | DX: M48.062 Spinal stenosis, lumbar region with neurogenic claudication (principal) | CPT/HCPCS: 97163; 97535 ==

== ENCOUNTER 2025-02-09 23:50 | Inpatient (IN) | payer MEDICARE, BC, SELFPAY ==
--- OUTSIDE RECORDS SUMMARY | 2024-06-05 08:15 | XMS_ITS | Continuity of Care Document ---
Author Organization [facility] Address [address] [place] [address] Phone Care Team Providers Care Quantitative Equity Head Name Role Phone Ravi Dewey MD Unavailable Unavailable Medications Medication Instructions Dosage Effective Dates (start - stop) Status Comments propranolol ER 120 mg capsule,24 hr,extended release take 2 capsule by oral route every day 240 MG - Active losartan 50 mg tablet take 1 tablet by o ral route every day 50 MG - Active buspirone 10 mg tablet take 1 tablet by oral route 3 times every day 10 MG - Active nifedipine ER 60 mg tablet,extended release 24 hr take 1 tablet by oral route every day 60 MG - Active paroxetine 20 mg tablet take 1 tablet by oral route every day 20 MG - Active Systane Balance 0.6 % eye drops - Active Vitamin C 1,000 mg tablet - Active multivitamin tablet take 1 tablet by ora l route every day with food - Active levothyroxine 88 mcg tablet take 1 tablet by oral route every day 88 MCG - Active Vitamin D3 25 mcg (1,000 unit) tablet - Active Bonine 25 mg chewable tablet chew 1 tablet by oral route 3 times every day as needed 25 MG - Active Miralax 17 gram/dose oral powder take (17G) by oral route every day mixed with 8 oz. water, juice, soda, coffee or tea - Active Tylenol 325 mg tablet take 2 Tablet by o ral route every 4 hours as needed as needed - Active Procedures Procedure Date Established Patient Visit Expanded Injection Aspiration Major Joint/Bursa M Betamethasone acet&sod phosp Established Patient Visit Detailed Injection Aspiration Major Joint/Bursa D ec Betamethasone acet&sod phosp Established Patient Visit Detailed Injection Aspiration Major Joint/Bursa S ep Betamethasone acet&sod phosp Celestone Per 3 Mg (Bill 2 Units Per Cc) Injection Aspiration Major Joint/Bursa A Established Patient Visit Detailed Established Patient Visit Detailed Injection Aspiration Major Joint/Bursa A Celestone Per 3 Mg (Bill 2 Units Per Cc) Injection Anesthetic Transforaminal Epid ural W/Imaging Lumbar Dexamethasone Sod Phsp X-Ray Lumbosacral Spine Minimum 4 Views Established Patient Visit Detailed May-2 MRI Lumbar Spine WO Contrast X-Ray Unilateral Hip W/Pelvis 2-3 Views Established Patient Visit Detailed Established Patient Visit Detailed Postoperative Follow Up X-Ray Foot Minimum 3 Views Postoperative Follow Up X-Ray Foot Minimum 3 Views X-Ray Foot Minimum 3 Views Postoperative Follow Up X-Ray Foot Minimum 3 Views Closed Metatarsal Fx WO Manipulation Dec New Patient Office Visit Comprehensive O Manual Therapy Techniques THERAPEUTIC EXERCISES Manual Therapy Techniques THERAPEUTIC EXERCISES Manual Therapy Techniques THERAPEUTIC EXERCISES Physical Therapy Eval Low Manual Therapy Techniques THERAPEUTIC EXERCISES New Patient Office Visit Comprehensive M X-Ray Lumbosacral Spine 2 Or 3 Views May X-Ray Pelvis 1 Or 2 Views New Patient Office Visit Comprehensive M ar-24-2023 X-Ray Lumbosacral Spine 2 Or 3 Views May X-Ray Pelvis 1 Or 2 Views Established Patient Visit Expanded Established Patient Visit Expanded New Patient Office Visit Detailed X-Ray Ankle Minimum 3 Views X-Ray Ankle Minimum 3 Views X-Ray Foot Minimum 3 Views X-Ray Foot Minimum 3 Views New Patient Office Visit Detailed Advance Directives Directive Yes / No Effective Date File Name Resuscitation Not Answered N/A N/A Life Support Not Answered N/A N/A Intubation Not Answered N/A N/A Antibiotics Not Answered N/A N/A IV Fluid Support Not Answered N/A N/A Tube Feed Not Answered N/A N/A Other Directive N/A N/A WARNING:The information contained in this section is historical and is provided for information only and does not constitute a legal document or any assurance that the information is still accurate. Please verify the information with the davis of the legal document before using it for clinical purposes. Encounters Encounter Description Practice Location Reason(s) For Visit Diagnoses Date Provider Providers Copied on Encounter Established Patient Visit Expanded [facility], [address] [place] [address], [id number], tel:[phone] DANYA [place] Low back pain, unspecifiedPa in in right hipTrochanter ic bursitis, right hip May- 5 Maco Rodrigues. [address] [place] [address], [id number], . tel:[phone] Referring Provider: Ravi Moody, [address] [place] [address], [id number]. tel:[phone] Established Patient Visit Detailed [facility], [address] [place] [address], [id number], tel:[phone] DANYA [place] Lumbar painTrochante ayana bursitis, right hip Mar-- 4 Maco Rodrigues. [address] [place] [address], [address] [place] [address], . tel:[phone] Referring Provider: Ravi Moody, [address] [place] [address], [id number]. 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 [address] [place] [address], [address] [place] [address], [place]. tel:[phone] Referring Provider: Ravi Moody, [address] [place] [address], [id number]. tel:[phone] Established Patient Visit Detailed [facility], [address] [place] [address], [address] [place] [address], tel:[phone] [facility] Lumbar painDietary counseling and surveillanceE ssential (primary) hypertensionT rochanteric bursitis, right hipLow back pain Jul- 4 Maco Rodrigues. [address] [place] [address], [address] [place] [address], . tel:[phone] Referring Provider: Saúl Saravia, [address] [place], [id number]. tel:[phone] [facility], [address] [place] [address], [address] [place] [address], tel:[phone] [facility] No Information Apr-0 4 Efren Hays. [address] [place], [place], [address] [place] [address], [place]. tel:[phone] Referring Provider: Ravi Moody, [address] [place] [address], [id number]. tel:[phone] Established Patient Visit Detailed [facility], [address] [place] [address], [address] [place] [address], tel:[phone] [facility] Lumbar painDietary counseling and surveillanceE ssential (primary) hypertension 4 Maco Rodrigues. [address] [place] [address], [address] [place] [address], . tel:[phone] Referring Provider: Ravi Moody, [address] [place] [address], [id number]. tel:[phone] [facility], [address] [place] [address], [address] [place] [address], tel:[phone] [facility] No Information 4 Ayanna Jim. [address] [place] [address], [address] [place] [address], . tel:[phone] Referring Provider: Attila Saravia, [address] [place] [address], [id number]. tel:[phone] Established Patient Visit Detailed [facility], [address] [place] [address], [address] [place] [address], tel:[phone] [facility] Dietary counseling and surveillanceP ain in right hipEssential (primary) hypertensionL ow back painDegenerat matthew disc disease, lumbar 4 Don Aiken. [address] [place] [address], [address] [place] [address], . tel:[phone] Referring Provider: Attila Saravia, [address] [place] [address], [id number]. tel:[phone] [facility], [address] [place] [address], [id number], [place] tel:[phone] [facility] Closed nondisplaced fracture of fifth metatarsal bone of right foot with routine healing 3 Steven Noyola. [address] [place] [address], [id number], . tel:[phone] Referring Provider: Dennsy Sanabria, [address] [place] [address], [id number]. 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 [address] [place] [address], [id number], . tel:[phone] Referring Provider: Dennys Sanabria, [address] [place] [address], [id number]. 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 [address] [place] [address], [id number], . tel:[phone] Referring Provider: Dennys Sanabria, [address] [place] [address], [id number]. 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 [address], [place], [id number], . tel:[phone] Referring Provider: Марина Sorto, [address] [place], [address]. tel:[phone] [facility], [address] [place] [address], [id number], tel:[phone] MACHINE LOADER Therapy [place] Other spondylosis with radiculopathy , lumbar region May-0 3 Kathleen Wade. [address] [place], [place], [id number], . tel:[phone] Referring Provider: Марина Sorto, [address] [place] [address], [id number]. tel:[phone] [facility], [address] [place] [address], [id number], tel:[phone] MACHINE LOADER Therapy [place] Other spondylosis with radiculopathy , lumbar region Jul- 3 Kathleen Wade. [address] [place], [place], [id number], . tel:[phone] Referring Provider: Марина Sorto, [address] [place] [address], [id number]. 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 [address] [place], [place], [id number], . tel:[phone] Referring Provider: Марина Sorto, [address] [place] [address], [id number]. 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 [address] [place] [address], [id number], . tel:[phone] Referring Provider: Марина Sorto, [address] [place] [address], [id number]. tel:[phone] Established Patient Visit Expanded [facility], [address] [place] [address], [address] [place] [address], tel:[phone] MACHINE LOADERBurt Davalos Posterior tibial tendinitis, left legPosterior tibial tendinitis, right leg 3 Ayah Maldonado. [address] [place] [address], [address] [place] [address], . tel:[phone] Referring Provider: Joel Panchal, [address] [place] [address], [id number]. tel:[phone] [facility], [address] [place] [address], [id number], tel:[phone] DANYA [place] Posterior tibial tendinitis, right leg 2 Ayah Maldonado. [address] [place] [address], [id number], . tel:[phone] Referring Provider: Joel Panchal, [address] [place] [address], [id number]. tel:[phone] New Patient Office Visit Detailed [facility], [address] [place] [address], [id number], tel:[phone] [facility] Dietary counseling and surveillanceE ssential (primary) hypertensionB ilateral ankle pain, unspecified chronicityPos terior tibialis tendinitis of both lower extremitiesPo sterior tibial tendinitis, left leg 2 Ayah Maldonado. [address] [place] [address], [id number], . tel:[phone] Referring Provider: Joel Panchal, [address] [place] [address], [id number]. tel:[phone] Family History Family Member Type Diagnosis Age At Onset No Information Payers Payer name Insurance type Covered constitution party ID Authoriza tishira(s) Medicare [place] [id number] [place] - [address] [id number] Social History Type Description Quantity Date Captured Comments Alcohol Use Details Unknown Caffeine Use Details Unknown Tobacco Use Status No Information Smoking Status No Information Sex Female Vital Signs Date / Time: Height Weight BMI Pulse Rate Blood Pressure Temperature Respiratory Rate Body Surface Area Head Circumference Head Circ. Percentile Wt./Travis. Percentile BMI percentile Pulse Ox Inhaled Ox 1:31 PM 62.00 in 164.40 lbs 30.0 7 kg/m eter (2) 62 /min 138/86 mm[Hg] Chief Complaint And Reason For Visit No Information Reason For Referral Reason For Referral No Information Plan Of Treatment Date Type Action Status Future Order: Radiology Order X- Ray Lumbar Spine (5) ([id number]), Sent on: Sent Future Order: Radiology Order MR I Lumbar Spine W/O Contrast ([id number]), Sent on: Sent Future Order: Radiology Order X- Ray Pelvis And Lateral Hip ([id number]), Sent on: Sent Future Order: Radiology Order X- Ray Foot (3) ([id number]), Sent on: Sent Future Order: Radiology Order X- Ray Foot (3) ([id number]), Sent on: Sent Future Order: Radiology Order X- Ray Foot (3) ([id number]), Sent on: Sent Future Order: Radiology Order X- Ray Pelvis (1-2) ([id number]), Sent on: Sent Future Order: Radiology Order X- Ray Lumbar Spine (2) (3) ([id number]), Sent on: Sent Future Order: Radiology Order X- Ray Ankle (3) Standing ([id number]), Sent on: Sent Future Order: Radiology Order X- Ray Foot (3) Standing ([id number]), Sent on: Sent History Of Present Illness Encounter Date Complaint History Of Prese nt Illness Lumbar f/u Erica Lopez is a 83 year old female presenting with lumbar f/u and Rt hip repeat injection. Patient reports that the injections are still helpful for her but, not as much as they were. Her and her son are wondering about next steps. Pt also reports that she has pain above her Rt hip. Right Hip Erica Lopez is a 83 year old female presenting with right hip pain. Patient is not better since last office visit. She states her pain is 9/10 today. Patient is currently taking Tylenol q4-6 hours. She had a hip injection on 12/06/23, which gave her relief for about one month. She would like to have an injection today. Lumbar f/u Erica Lopez is a 83 year old female presenting with lumbar, Rt Hip f/u. Pain Level: 9/10. She would like repeat injection today. She states that her last injection on 07/16/23 was helpful for her. She has been to 12 PT sessions and they seemed to help and irritate her pain. She reports stabbing and burning pain in the Rt hip. Functional Status Date Functional Assessmen t No Information Instructions Date Instruction Additional Infor gilma No Information Assessments Type Assessment Date assessment Low back pain, unspecified May-0 assessment Pain in right hip assessment Trochanteric bursitis, right hip Patient Care Teams Name Effective Dates (start - stop) Status Members No Information
--- OUTSIDE RECORDS SUMMARY | 2024-06-05 08:15 | XMS_ITS | Continuity of Care Document ---
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 [address] [place] [address], [id number], . tel:[phone] Referring Provider: Ravi Moody, [address] [place] [address], [id number]. tel:[phone] Established Patient Visit Detailed [facility], [address] [place] [address], [id number], tel:[phone] DANYA Hilo Lumbar painTrochante ayana bursitis, right hip Mar-- 4 Maco Rodrigues. [address] [place] [address], [address] [place] [address], . tel:[phone] Referring Provider: Ravi Moody, [address] [place] [address], [address]. 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 [address] [place] [address], [address] [place] [address], [place]. tel:[phone] Referring Provider: Ravi Moody, [address] [place] [address], [address]. tel:[phone] Established Patient Visit Detailed [facility], [address] [place] [address], [address] [place] [address], tel:[phone] [facility] Lumbar painDietary counseling and surveillanceE ssential (primary) hypertensionT rochanteric bursitis, right hipLow back pain Jul- 4 Maco Rodrigues. [address] [place] [address], [address] [place] [address], . tel:[phone] Referring Provider: Saúl Saravia, [address] [place], [address]. tel:[phone] [facility], [address] [place] [address], [address] [place] [address], tel:[phone] [facility] No Information Apr-0 4 Efren Hays. [address], [place], [address] [place] [address], [place]. tel:[phone] Referring Provider: Ravi Moody, [address] [place] [address], [address]. tel:[phone] Established Patient Visit Detailed [facility], [address] [place] [address], [address] [place] [address], tel:[phone] [facility] Lumbar painDietary counseling and surveillanceE ssential (primary) hypertension 4 Maco Rodrigues. [address] [place] [address], [address] [place] [address], . tel:[phone] Referring Provider: Ravi Moody, [address] [place] [address], [address]. tel:[phone] [facility], [address] [place] [address], [address] [place] [address], tel:[phone] [facility] No Information 4 Ayanna Jim. [address] [place] [address], [address] [place] [address], . tel:[phone] Referring Provider: Attila Saravia, [address] [place] [address], [address]. tel:[phone] Established Patient Visit Detailed [facility], [address] [place] [address], [address] [place] [address], tel:[phone] [facility] Dietary counseling and surveillanceP ain in right hipEssential (primary) hypertensionL ow back painDegenerat matthew disc disease, lumbar 4 Don Aiken. [address] [place] [address], [address] [place] [address], . tel:[phone] Referring Provider: Attila Saravia, [address] [place] [address], [address]. tel:[phone] [facility], [address] [place] [address], [id number], [place] tel:[phone] [facility] Closed nondisplaced fracture of fifth metatarsal bone of right foot with routine healing 3 Steven Noyola. [address] [place] [address], [id number], . tel:[phone] Referring Provider: Dennys Sanabria, [address] [place] [address], [id number]. 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 [address] [place] [address], [id number], . tel:[phone] Referring Provider: Dennys Sanabria, [address] [place] [address], [address]. 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 [address] [place] [address], [id number], . tel:[phone] Referring Provider: Dennys Sanabria, [address] [place] [address], [id number]. 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 [address], [place], [id number], . tel:[phone] Referring Provider: Марина Sorto, [address] [place], [address]. 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 [address], [id number], . tel:[phone] Referring Provider: Марина Sorto, [address] [place] [address], [address]. 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 [address], [place], [id number], . tel:[phone] Referring Provider: Марина Sorto, [address] [place] [address], [address]. 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 [address], [place], [id number], . tel:[phone] Referring Provider: Марина Sorto, [address] [place] [address], [address]. 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 [address] [place] [address], [id number], . tel:[phone] Referring Provider: Марина Sorto, [address] [place] [address], [address]. tel:[phone] Established Patient Visit [facility], [address] [place] [address], [address] [place] [address], tel:[phone] CENTRAL SERVICE TECHBurt [place] Posterior tibial tendinitis, left legPosterior tibial tendinitis, right leg 3 Ayah Maldonado. [address] [place] [address], [address] [place] [address], . tel:[phone] Referring Provider: Joel Panchal, [address] [place] [address], [address]. tel:[phone] [facility], [address] [place] [address], [id number], tel:[phone] DANYA Montezie Posterior tibial tendinitis, right leg 2 Ayah Maldonado. [address] [place] [address], [id number], . tel:[phone] Referring Provider: Joel Panchal, [address] [place] [address], [address]. tel:[phone] New Patient Office Visit Detailed [facility], [address] [place] [address], [id number], tel:[phone] [facility] Dietary counseling and surveillanceE ssential (primary) hypertensionB ilateral ankle pain, unspecified chronicityPos terior tibialis tendinitis of both lower extremitiesPo sterior tibial tendinitis, left leg 2 Ayah Maldonado. [address] [place] [address], [id number], . tel:[phone] Referring Provider: Joel Panchal, [address] [place] [address], [address]. tel:[phone] Family History Family Member Type Diagnosis Age At Onset No Information Payers Payer name Insurance type Covered green party ID Authoriza tishira(s) Medicare [place] MB [id number] [place] - [id number] Social History Type Description Quantity Date Captured [...] Radiology Order X- Ray Lumbar Spine (5) ([id number]), Sent on: Sent Future Order: Radiology Order MR I Lumbar Spine W/O Contrast ([id number]), Sent on: Sent Future Order: Radiology Order X- Ray Pelvis And Lateral Hip ([id number]), Sent on: Sent Future Order: Radiology Order X- Ray Foot (3) ([id number]), Sent on: Sent Future Order: Radiology Order X- Ray Foot (3) ([id number]), Sent on: Sent Future Order: Radiology Order X- Ray Foot (3) ([id number]), Sent on: Sent Future Order: Radiology Order X- Ray Pelvis (1-2) ([id number]), Sent on: Sent Future Order: Radiology Order X- Ray Lumbar Spine (2) (3) ([id number]), Sent on: Sent Future Order: Radiology Order X- Ray Ankle (3) Standing ([id number]), Sent on: Sent Future Order: Radiology Order X- Ray Foot (3) Standing ([id number]), Sent on: Sent History Of Present Illness [...] pain above her Rt hip. Right Hip Eriac Lopez is a 83 year old female [...]
[2025-02-10] VITALS (18 sets, daily range): BP systolic 107–155; BP diastolic 64–93; PULSE 55–83; TEMP 36.4–36.8; O2SAT 92–97; BMI 32.9
--- NOTE | 2025-02-10 00:30 | ED.GENADUL1 ---
HPI HPI - General Adult General Chief complaint: Weakness Stated complaint: UTI, WEAKNESS Time Seen by Provider: 02/10/25 00:18 Source: patient and family Mode of arrival: ambulance History of Present Illness HPI narrative: patient has chronic tremors and chronic pain. has received multiple injections per pain clinic. She is on Neurontin and baclofen. Advised to increased Baclofen which she did yesterday. Son feels she is more sedated than usual a and weak.He brought her in. she has not specific complaints . no fever, abdominal pain, cough or dyspnea Related Data Home Medications ?Medication ?Instructions ?Recorded ?Confirmed calcium phosphate,dibasic 77 1 tab PO DAILY 09/04/24 02/15/25 mg-vitamin D3 400 unit tablet levothyroxine 100 mcg tablet 100 mcg PO DAILY 09/04/24 02/15/25 (Synthroid) losartan 50 mg tablet 50 mg PO BID 09/04/24 02/15/25 multivitamin 1 tab PO DAILY 09/04/24 02/15/25 nifedipine 60 mg tablet,extended 60 mg PO DAILY 09/04/24 02/15/25 release paroxetine HCl 20 mg tablet 20 mg PO DAILY 09/04/24 02/15/25 polyethylene glycol 3350 17 17 g PO DAILY PRN constipation 09/04/24 02/15/25 gram/dose oral powder (Miralax) propranolol 120 mg capsule,24 120 mg PO BID 09/04/24 02/15/25 hr,extended release buspirone 10 mg tablet 10 mg PO DAILY 10/30/24 02/15/25 gabapentin 100 mg capsule 200 mg PO Q8H 10/30/24 02/15/25 diazepam 10 mg tablet 10 mg PO DAILY 02/15/25 02/15/25 ondansetron 4 mg disintegrating 4 mg translingual Q6H PRN nausea 02/15/25 02/15/25 tablet and vomiting scopolamine base 1 mg over 3 days 02/15/25 transdermal patch Previous Rx's ?Medication ?Instructions ?Recorded acetaminophen 325 mg tablet 650 mg (2 x 325 mg) PO Q6H PRN 02/12/25 (Tylenol) Pain or fever 30 days #120 tabs ibuprofen 200 mg capsule (Motrin 200 mg PO Q8H PRN back pain 30 02/12/25 IB) days #90 caps Allergies Allergy/AdvReac Type Severity Reaction Status Date / Time morphine Allergy Mild Unknown Verified 02/15/25 22:47 Opioid HPI Opioid Management Most Recent Opioid Data: Last Pain Scale 5 02/12/25, 12:00 Last Pain Intensity 3 02/12/25, 11:58 Last Pain Assessment 02/12/25, 12:00 Last MAR Pain Assessment 02/12/25, 10:21 Last ORT Total Score 0 02/10/25, 03:30 Last ORT Risk Category Low Risk 02/10/25, 03:30 Review of Systems ROS Status of ROS 10 or more systems reviewed and unremarkable except as noted in history and below [facility] Medical History (Updated 02/16/25 @ 00:57 by Darrin Stratton MD) Fall ?W19.XXXA - Unspecified fall, initial encounter (ICD-10) Polypharmacy ?Z79.899 - Other lobsterman (current) drug therapy (ICD-10) Hypothyroid ?E03.9 - Hypothyroidism, unspecified (ICD-10) Acute UTI ?N39.0 - Urinary tract infection, site not specified (ICD-10) Generalized weakness ?R53.1 - Weakness (ICD-10) Lumbar stenosis with neurogenic claudication ?M48.062 - Spinal stenosis, lumbar region with neurogenic claudication (ICD-10) Low back pain ?M54.50 - Low back pain, unspecified (ICD-10) Osteoarthritis ?M19.90 - Unspecified osteoarthritis, unspecified site (ICD-10) Glaucoma ?H40.9 - Unspecified glaucoma (ICD-10) Hypertension ?I10 - Essential (primary) hypertension (ICD-10) Surgical History H/O thyroidectomy ?Z98.890 - Other specified postprocedural states (ICD-10) ?Z90.89 - Acquired absence of other organs (ICD-10) H/O: hysterectomy ?Z90.710 - Acquired absence of both cervix and uterus (ICD-10) Social History (Updated 02/10/25 @ 04:00 by Clare Rosario RN) Within the past year, how often did you have a drink containing alcohol: never Score interpretation: A score less than 3 is consistent with normal alcohol consumption. Highest level of school completed/degree received: high school graduate Are you now , , , , never or living with a partner: In a typical week, how many times do you talk on the telephone with family, friends, or neighbors: 3 or more times per week How often do you get together with friends or relatives: 3 or more times per week Little interest or pleasure in doing things: not at all Feeling down, depressed, or hopeless: not at all Feel stressed/tense/nervous/anxious/difficulty sleeping: not at all Gender Identity: female Exam Constitutional Vital Signs, click to edit/add: Last Vital Signs Temp 98 F 02/12/25 07:58 Pulse 91 H 02/12/25 10:00 Resp 14 02/12/25 08:00 BP 146/73 H 02/12/25 09:08 Pulse Ox 96 02/12/25 07:58 O2 Del Method Nasal Cannula 02/12/25 07:58 O2 Flow Rate 3 02/12/25 07:58 Common normals: no apparent distress, oriented x3 and alert HENMT Common normals: normocephalic and head/scalp atraumatic Eye Common normals: EOMs intact bilaterally and conjunctivae normal Respiratory Common normals: normal respiratory effort, no retractions, no use of accessory muscles and clear to auscultation bilaterally Cardio Common normals: regular rate, regular rhythm, S1 normal heart sound and S2 normal heart sound GI Common normals: Normal to inspection, nondistended, normoactive bowel sounds present, soft to palpation and non-tender Extremity Common normals: normal to inspection Neuro Common normals: oriented x3 and CN's II-XII intact bilaterally Other: tremors upper ext Course Course Hospital Course: Miss Lopez is an 84-year-old female who was 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 She recently tried to take double the dose of her muscle relaxers and attempts to help relieve her chronic back and right hip pain. She is on baclofen 5 mg every 8 hours, she attempted to take 10 mg. She was also found to have a urinary tract infection, her metabolic encephalopathy is likely secondary to polypharmacy and infectious etiology. Her baclofen was held on admission, she was started on antibiotics for her urinary tract infection. The following morning her mentation improved greatly and she is back to her baseline per the son, she has been on baclofen chronically for some time now, I did resume it at her typical dose of 5 mg every 8 hour, she received 1 dose of this and she became very lethargic again. I stop this indefinitely. I did have a long talk with the son about further holding of the baclofen upon discharge until she follows up with pain management. He is agreeable. The patient also had a fall in the bathroom February 11 in the evening, she was instructed to let the nurse know when she was finished using the restroom and she attempted to get up and take care of things herself. She did fall hit the back of her head. Her neurological exam was unchanged, there is no bleeding noted from her head, repeat CT scan without contrast was ordered and was negative. The patient was subsequently discharged in the hospital the morning of the with a prescription to finish her antibiotics for another 2 days for 5 days total. Of note, the son is concerned about ing, he is currently adding on a small [place] apartment for to living in his house, and instructed him to keep many pictures of her and her family throughout the new apartment for some familiarity as well as finish it with things she is used to. He is agreeable for this and said he is looking forward to getting her stuff out of storage to furnish it with. Recommend continue to hold baclofen, I talked about alternating Tylenol and ibuprofen for pain management as she did receive a dose of Toradol here which helped her pain significantly. She will follow-up with pain management. Vital Signs Vital signs: Vital Signs Temperature 97.8 F 02/10/25 00:04 Pulse Rate 64 02/10/25 00:04 Respiratory Rate 20 02/10/25 00:04 Blood Pressure 107/93 H 02/10/25 00:04 Pulse Oximetry 93 L 02/10/25 00:04 Oxygen Delivery Method Room Air 02/10/25 00:04 Temperature 98 F 02/12/25 07:58 Pulse Rate 91 H 02/12/25 10:00 Respiratory Rate 14 02/12/25 08:00 Blood Pressure 146/73 H 02/12/25 09:08 Pulse Oximetry 96 02/12/25 07:58 Oxygen Delivery Method Nasal Cannula 02/12/25 07:58 Oxygen Delivery Flow Rate 3 02/12/25 07:58 Medical Decision Making MDM Narrative Medical decision making narrative: patient has chronic pain and chronic tremor of her hands. Recent increase in dose of baclofen. Uncertain if this increased was for pain or for her tremors. She is generally weak. Found to have UTI. she also has macrocytosis . cxray per my preliminary review with atelectasis right perihilar but infiltate is possible. However she has no upper respiratory complaint. Given dose of Rocephin IVPB and hospitalist paged for admission Lab Data Labs: Lab Results 02/10/25 02/10/25 02/10/25 Range/Units 00:01 00:30 05:16 WBC 8.5 (4.0-11.0) 10^3/uL RBC 3.98 L (4.20-5.40) 10^6/uL Hgb 13.6 (12.0-16.0) g/dL Hct 42.8 (36.0-48.0) % MCV 107.5 H (81.0-99.0) fL MCH 34.2 H (26.7-34.0) pg MCHC 31.8 (29.9-35.2) g/dL RDW 14.5 (11.0-15.0) % Plt Count 293 (150-450) 10^3/uL MPV 9.7 (9.5-13.5) fL Neut % (Auto) 70.0 (43.0-75.0) % Lymph % (Auto) 15.8 L (20.5-60.0) % [place] % (Auto) 12.4 H (1.7-12.0) % Eos % (Auto) 1.2 (0.9-7.0) % Baso % (Auto) 0.2 (0.2-2.0) % Neut # (Auto) 6.0 (1.4-6.5) 10^3/uL Lymph # (Auto) 1.4 (1.2-3.8) 10^3/uL [place] # (Auto) 1.1 H (0.3-0.8) 10^3/uL Eos # (Auto) 0.1 (0.0-0.7) 10^3/uL Baso # (Auto) 0.0 (0.0-0.1) 10^3/uL Abs Immat Gran (auto) 0.03 (0.00-0.03) 10^3/uL Imm/Tot Granulo (auto) 0.4 (0.0-0.5) % Sodium 140 138 (136-145) mmol/L Potassium 4.4 4.4 (3.5-5.1) mmol/L Chloride 101 103 (98-107) mmol/L Carbon Dioxide 33.5 H 31.7 (21.0-32.0) mmol/L Anion Gap 9.9 7.7 BUN 25.0 H 22.0 H (7.0-18.0) mg/dL Creatinine 1.02 0.76 (0.55-1.02) mg/dL Est GFR ( Amer) >60 >60 (>=60 mL/min/1.73m^2) Est GFR (Non-Af Amer) 51 L >60 (>=60 mL/min/1.73m^2) BUN/Creatinine Ratio 24.5 28.9 Glucose 160 H 136 H (74-106) mg/dL Lactate 1.3 (0.4-2.0) mmol/L Calcium 9.9 9.3 (8.5-10.1) mg/dL Phosphorus 4.2 (2.6-4.7) mg/dL Magnesium 2.2 (1.8-2.4) mg/dL Total Bilirubin 0.5 0.3 (0.2-1.0) mg/dL AST 21 17 (15-37) U/L ALT 36 29 (14-59) U/L Alkaline Phosphatase 107 99 (46-116) U/L Myoglobin 24 (9-82) ng/mL Troponin I High Sens 7.2 (4.0-51.3) pg/mL Total Protein 7.6 6.9 (6.4-8.2) g/dL Albumin 3.7 3.4 (3.4-5.0) g/dL Globulin 3.9 3.5 g/dL Albumin/Globulin Ratio 0.9 1.0 TSH & Free T4 Interp 3.264 (0.358-3.740) uIU/mL Urine Color Yellow (YELLOW) Urine Clarity Clear (CLEAR) Urine pH 5.5 (5.0-9.0) Ur Specific [place] 1.025 (1.005-1.025) Urine Protein Trace (NEG/TRACE) mg/dL Urine Glucose (UA) Negative (NEGATIVE) mg/dL Urine Ketones Trace A (NEGATIVE) mg/dL Urine Occult Blood Moderate A (NEGATIVE) Urine Nitrite Positive A (NEGATIVE) Urine Bilirubin Negative (NEGATIVE) Urine Urobilinogen 0.2 (0.2-1.0) EU/dL Ur Leukocyte Esterase Small A (NEGATIVE) Urine RBC None seen (0-2) #/HPF Urine WBC 10-20 A (NONE SEEN) #/HPF Ur Squamous Epith Cells Rare (NONE/RARE) #/LPF Ur Transition Epith Cell Rare A (NONE SEEN) #/LPF Urine Crystals None seen (None Seen) #/HPF Urine Bacteria Moderate A (NONE SEEN) #/HPF Urine Casts Seen A (NONE SEEN) #/LPF Hyaline Casts Few Urine Mucus None seen (NONE SEEN) Ur Culture Indicated? Yes-[facility] [place] 02/11/25 Range/Units 04:52 WBC (4.0-11.0) 10^3/uL RBC (4.20-5.40) 10^6/uL Hgb (12.0-16.0) g/dL Hct (36.0-48.0) % MCV (81.0-99.0) fL MCH (26.7-34.0) pg MCHC (29.9-35.2) g/dL RDW (11.0-15.0) % Plt Count (150-450) 10^3/uL MPV (9.5-13.5) fL Neut % (Auto) (43.0-75.0) % Lymph % (Auto) (20.5-60.0) % [place] % (Auto) (1.7-12.0) % Eos % (Auto) (0.9-7.0) % Baso % (Auto) (0.2-2.0) % Neut # (Auto) (1.4-6.5) 10^3/uL Lymph # (Auto) (1.2-3.8) 10^3/uL [place] # (Auto) (0.3-0.8) 10^3/uL Eos # (Auto) (0.0-0.7) 10^3/uL Baso # (Auto) (0.0-0.1) 10^3/uL Abs Immat Gran (auto) (0.00-0.03) 10^3/uL Imm/Tot Granulo (auto) (0.0-0.5) % Sodium 140 (136-145) mmol/L Potassium 4.5 (3.5-5.1) mmol/L Chloride 105 (98-107) mmol/L Carbon Dioxide 31.9 (21.0-32.0) mmol/L Anion Gap 7.6 BUN 18.0 (7.0-18.0) mg/dL Creatinine 0.62 (0.55-1.02) mg/dL Est GFR ( Amer) >60 (>=60 mL/min/1.73m^2) Est GFR (Non-Af Amer) >60 (>=60 mL/min/1.73m^2) BUN/Creatinine Ratio 29.0 Glucose 105 (74-106) mg/dL Lactate (0.4-2.0) mmol/L Calcium 9.4 (8.5-10.1) mg/dL Phosphorus (2.6-4.7) mg/dL Magnesium 2.3 (1.8-2.4) mg/dL Total Bilirubin (0.2-1.0) mg/dL AST (15-37) U/L ALT (14-59) U/L Alkaline Phosphatase (46-116) U/L Myoglobin (9-82) ng/mL Troponin I High Sens (4.0-51.3) pg/mL Total Protein (6.4-8.2) g/dL Albumin (3.4-5.0) g/dL Globulin g/dL Albumin/Globulin Ratio TSH & Free T4 Interp (0.358-3.740) uIU/mL Urine Color (YELLOW) Urine Clarity (CLEAR) Urine pH (5.0-9.0) Ur Specific [place] (1.005-1.025) Urine Protein (NEG/TRACE) mg/dL Urine Glucose (UA) (NEGATIVE) mg/dL Urine Ketones (NEGATIVE) mg/dL Urine Occult Blood (NEGATIVE) Urine Nitrite (NEGATIVE) Urine Bilirubin (NEGATIVE) Urine Urobilinogen (0.2-1.0) EU/dL Ur Leukocyte Esterase (NEGATIVE) Urine RBC (0-2) #/HPF Urine WBC (NONE SEEN) #/HPF Ur Squamous Epith Cells (NONE/RARE) #/LPF Ur Transition Epith Cell (NONE SEEN) #/LPF Urine Crystals (None Seen) #/HPF Urine Bacteria (NONE SEEN) #/HPF Urine Casts (NONE SEEN) #/LPF Hyaline Casts Urine Mucus (NONE SEEN) Ur Culture Indicated? Discharge Plan Discharge Chief Complaint: Weakness Clinical Impression: Generalized weakness, Acute UTI Patient Disposition: Admitted as Observation Discharge Date/Time: 02/10/25 02:58
--- NOTE | 2025-02-10 00:35 | ECG_ITS ---
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 Measurements Intervals [place] Rate: 55 P: 46 NV: 166 QRS: 6 QRSD: 76 T: 17 QT: 422 QTc: 410 Interpretive Statements 1100 Sinus rhythm 9110 normal ECG No previous ECG available for comparison Electronically Signed On 02-10-2025 7:01:18 EST by JOSEPH AVALOS M.D.
--- NOTE | 2025-02-10 00:35 | XR_ITS ---
The [address] [address] Patient Name: CEDRICK LEGER MRN: [id number] date: 1940 Sex: F Assigned Patient Location: ED.MAIN Current Patient Location: [place] Accession/Order Number: [id number] Exam Date: 02/10/2025 00:45 Report Date: 02/10/2025 08:05 At the request of: RYAN SANCHEZ MD Procedure: XR chest 1V PORTABLE AP ERECT CHEST 0026 hours CLINICAL HISTORY: weakness COMPARISON: None The heart is within normal limits. There is no vascular congestion. There is shallow inspiration and suspected basilar atelectasis. Pericardial fat pad is also possible on the left. There is no effusion or pneumothorax. The osseous structures are intact. Mild degenerative changes seen at the spine and shoulders XR/XR chest 1V IMPRESSION: SHALLOW INSPIRATION AND POTENTIAL BASILAR ATELECTASIS. NO OTHER ACUTE FINDINGS Impression dictated by: Katerina Cat M.D. 02/10/2025 8:05 AM Dictation Location: [place] [address] Electronically authenticated by: [id number] Y Date: 02/10/2025 08:05
--- OUTSIDE RECORDS SUMMARY | 2025-02-10 00:39 | XMS_ITS | Clinical Summary ---
Author Organization [facility] Address [address] [place] [address] Phone Care Team Providers Care Portable Track Crew Chief Name Role Phone Leanna Quiroz MD Primary Care Provider + Allergies Active AllergyReactionsCriticalityNoted DateCommentsMorphineDizziness, Nausea/cixoukrb63/25/2025 Medications MedicationSigDispense QuantityRefillsLast FilledStart DateEnd DateStatus busPIRone (Buspar) 10 mg tablet Take 1 tablet (10 mg) by mouth 2 times a day.Active losartan (Cozaar) 50 mg tablet Take 1 tablet (50 mg) by mouth 2 times a day.Active PARoxetine (Paxil) 20 mg tablet Take 1 tablet (20 mg) by mouth once daily in the morning.Active propranolol XL (Innopran XL) 120 mg 24 hr capsule Take 1 capsule (120 mg) by mouth 2 times a day. Do not crush, chew, or split. Active acetaminophen (Tylenol) 325 mg tablet Take by mouth every 6 hours if needed for mild pain (1 - 3).Active vit C/E/Zn/coppr/lutein/zeaxan (PRESERVISION AREDS-2 ORAL) Take by mouth.Active ascorbic acid (Vitamin C) 500 mg tablet Take 1 tablet (500 mg) by mouth once daily.Active cholecalciferol (Vitamin D3) 25 mcg (1,000 units) tablet Take 1 tablet (25 mcg) by mouth once daily.Active polyethylene glycol (Glycolax, Miralax) 17 gram packet Take 17 g by mouth once daily.Active multivitamin tablet Take 1 tablet by mouth once daily.Active HYDROcodone-acetaminophen (Windham) 5-325 mg tablet Take 1 tablet by mouth 2 times a day as needed for severe pain (7 - 10).Active NIFEdipine ER (NIFEdipine XL) 60 mg 24 hr tablet Indications:Primary hypertensionTake 1 tablet (60 mg) by mouth once daily in the morning. Take before meals. Do not crush, chew, orsplit. 90 tablet 5Active albuterol 2.5 mg /3 mL (0.083 %) nebulizer solution Indications:Shortness of breathTake 3 mL (2.5 mg) by nebulization 4 times a day as needed for wheezing or shortness of breath. 3 mL 507/6Active baclofen (Lioresal) 10 mg tablet Take 0.5-1 tablets (5-10 mg) by mouth 3 times a day.Active diazePAM (Valium) 10 mg tablet Indications:AnxietyTake 1 tablet (10 mg) by mouth once daily. 90 tablet 5Active levothyroxine (Synthroid, Levoxyl) 100 mcg tablet Indications:Postoperative hypothyroidismTake 1 tablet (100 mcg) by mouth early in the morning.. Take on an empty stomach at the same time each day, either 30 to 60 minutes prior to breakfast 90 tablet 5Active scopolamine hydrobromide (SCOPOLAMINE HBR ORAL) Take 20 mg by mouth if needed.5Active gabapentin (Neurontin) 100 mg capsule Indications:Right sided sciaticaTAKE 2 CAPSULES BY MOUTH 3 TIMES A DAY. 180 capsule 5Active gabapentin (Neurontin) 100 mg capsule Indications:Right sided sciaticaTake 2 capsules (200 mg) by mouth 3 times a day. 180 capsule Discontinued Active Problems ProblemNoted DateDiagnosed DateObesity (BMI 30-39.9)12/11/2024Shortness of xbjkfr5212/11/2024Pain in right leg12/11/2024Lipid inwrbnodv23/11/2025Never smoked iuipbuc2612/11/2024bnormal mgffrybmybuyov77/11/2025bnormal PFTs (pulmonary function tests)12/11/2024Weakness of both lower limbs12/11/2024Glaucoma 12/11/2024Lower leg edema12/11/20242839Sqcddqx80/11/9499Ivomts29/11/2025LVH (left ventricular hypertrophy)12/11/2024Left ventricular outflow tract obstruction 12/11/2024Inflammation of sacroiliac joint11/19/2024Low back pain, unspecified 11/17/2024Spinal stenosis of lumbar wtknza4308/27/2024Primary hypertension 07/25/20243197Asqwpob36/25/2025Grief /25/2025Postoperative hypothyroidism 07/25/2024Motion trnhcejv19/25/2025 Encounters DateTypeDepartmentCare XiyeXpnnisucnwt58/01/2025Refill [facility] [address] [address] Leanna Quiroz MD Right sided yanvzzos93/01/2025Telephone [facility] [address] [phone] Leanna Quiroz MD 12/11/2024 1:30 PM EDTOffice Visit [facility] [address] [place] [phone] Jona Murillo MD Abnormal echocardiogram (Primary [...] ventricular hypertrophy); Left ventricular outflow tract obstruction (HHS-HCC)12/11/20246506Zgudbe15/08/2025 Telephone [facility] [address] [address] Leanna Quiroz MD 12/02/2024Orders Only [facility] [address] [phone] Leanna Quiroz MD Abnormal dgfxshyidnxwiq45/30/2025Results Follow-Up [facility] [address] [place] [address], [place] [address] Leanna Quiroz MD Transthoracic Echo Egsxkouv79/29/2025 12:04 PM EDT - 11/28/2024 11:59 PM EDT Hospital Encounter [facility] [address] [facility] [place] [address] Shortness of breath Discharge Disposition: Home11/28/2024 12:00 PM EDT - 11/28/2024 12:03 PM EDT Hospital Encounter [facility] [address] [place] [address] Shortness of breath Discharge Disposition: Home11/28/2024Orders Only [facility] [address] [address] Candi Anaya MA Shortness of breath; Afekstw1711/28/20246852Serooq44/25/2025Orders Only [facility] [address] [place] [address] Leanna Quiroz MD Anxietyfrom Last 3 Months Immunizations ImmunizationAdministration DatesNext DueTdap vaccine, age 7 year and older (BOOSTRIX, ADACEL)09/18/2024 Family History Medical HistoryRelationNameCommentsCancerFatherRelationNameStatusCommentsFather Social History Tobacco UseTypesPacks/DayYears UsedDateSmoking Tobacco: NeverSmokeless Tobacco: Never Tobacco Cessation:Counseling Given: Not Answered Alcohol UseStandard Drinks/WeekCommentsNever0 (1 standard drink = 0.6 oz pure alcohol)PHQ-2AnswerDate RecordedPatient Health Questionnaire-2 Fyoai451 CommentsNoSex and Gender InformationValueDate RecordedSex Assigned at BirthNot on fileLegal IrcNvefnt19/17/2025 11:21 AM ESTGender IdentityNot on file Sexual OrientationNot on file Last Filed Vital Signs Vital SignReadingTime TakenCommentsBlood Fxkgbiyh005/6009 1:16 PM EDT Yndmi1374 1:15 PM BTVDdprangwush50.2 ??C (97.1 ??F)11/03/2024 10:52 AM EDTRespiratory Bafs5000 10:52 AM EDTOxygen Tylhmvoiyn01%11/03/2024 10:52 AM EDTInhaled Oxygen Concentration--Gwzsqh99.4 kg (175 lb)12/11/2024 1:15 PM EDT Dfqsgi173.2 cm (5' 1.5 )12/11/2024 1:15 PM EDTBody Mass Index32.53012/11/2024 1:15 PM EDT Plan of Treatment DateTypeDepartmentCare Team (Latest Contact Info)Hxaibrkkfyh45/16/2025 1:00 PM ESTOffice Visit [facility] [address] [facility] [address] [place] [address] Leanna Quiroz MD [address] [place] [place] [address] 08/20/2025 1:00 PM EDTOffice Visit [address] [phone] Jona Murillo MD [address] [place] [address] Health MaintenanceDue DateLast DoneCommentsBone Density Scan08/25/2003Influenza Vaccine (#1)2024OVID-19 Vaccine (1 - 2024- season)2024Diabetes: Hemoglobin A1CTSH LevelMedicare Annual Wellness Visit (AWV)/07/2024Lipid Panel DTaP/Tdap/Td Vaccines (2 - Td or Tdap)HIB VaccinesAged OutNo longer eligible based on patient's age to complete this topicHPV VaccinesAged OutNo longer eligible based on patient's age to complete this topicHepatitis A VaccinesAged OutNo longer eligible based on patient's age to complete this topic Hepatitis B VaccinesAged OutNo longer eligible based on patient's age to complete this topicIPV VaccinesAged OutNo longer eligible based on patient's age to complete this topicMeningococcal VaccineAged OutNo longer eligible based on patient's age to complete this topicPneumococcal VaccineDiscontinuedRSV High Risk: (Elderly (60+) or Population)DiscontinuedRotavirus VaccinesAged OutNo longer eligible based on patient's age to complete this topicZoster VaccinesDiscontinued Procedures Procedure NamePriorityDate/TimeAssociated DiagnosisCommentsECG 12-LEADRoutine 12/11/2024 1:30 PM EDT Encounter to establish care with new doctor TRANSTHORACIC ECHO (TTE) FMAEXKWXMehcsff72/29/2025 1:51 PM EDT Shortness of breath HC SIX MINUTE CCGKQgnfchc79/29/2025 12:50 PM EDT Shortness of breath HEMOGLOBIN C4VIxhjvtx01/25/2025 12:25 PM EDT Primary hypertension Postoperative hypothyroidism Anxiety Grief reaction Right sided sciatica Hyperglycemia LIPID PPBUXMyptmam90/25/2025 12:25 PM EDT Primary hypertension Postoperative hypothyroidism Anxiety Grief reaction Right sided sciatica GOMVsrabma07/25/2025 12:25 PM EDT Primary hypertension Postoperative hypothyroidism Anxiety Grief reaction Right sided sciatica from Last 3 Months or Most Recently Relevant to Health Maintenance Results * ECG 12 Lead (12/11/2024 1:30 PM EDT)Specimen (Source)Anatomical Location / LateralityCollection Method / VolumeCollection TimeReceived Time Narrative CPACS - 12/11/2024 3:57 PM EDT Sinus rhythm, low voltage, poor wave anterior progression, rate 59. Authorizing ProviderResult TypeResult StatusScanalisa Fair Chidi MDECG ORDERABLES Final ResultPerforming OrganizationAddressCity/State/ZIP CodePhone Number CPACS * TRANSTHORACIC ECHO (TTE) COMPLETE (11/28/2024 1:51 PM EDT)ComponentValueRef RangeTest MethodAnalysis TimePerformed AtPathologist SignatureAV mn pxti3oyLh SYNGOAV pk vel1.08m/sSYNGOLVOT diam2.00cmSYNGOMV E/A ratio1.12SYNGOTricuspid annular plane systolic excursion2.7cmSYNGOLA vol index A/L26.0ml/l6IKUXSFE EF 63%SYNGORV free wall pk S'15.40cm/wKNEMABHWO59sqNwJGAGUQOHXq1.60cmSYNGOAortic Valve Area by Continuity of Peak Velocity2.09vv8KIDNHOH pk sxuv4hiLtIMEPD Aortic Valve Area by Continuity of VTI3.11rx4KJJOYXY A4C EF56.0SYNGOSpecimen (Source)Anatomical Location / LateralityCollection Method / VolumeCollection TimeReceived Time11/28/2024 1:08 PM EDT Impressions [facility] - 11/28/2024 4:04 PM EDT CONCLUSIONS: 1. The left ventricular systolic function is normal with a visually estimated ejection fraction of 60-65%. 2. No regional wall motion abnormalities. 3. Spectral Doppler shows a Grade II (pseudonormal pattern) of left ventricular diastolic filling with an elevated left atrial pressure. 4. Peak velocity across the LVOT at rest is 1.02 m/sec, PG 4 mmHg. ?Peak velocity across the LVOT with valsalva is [...] [facility] - 11/28/[facility]24 4:04 PM EDT ? [place] [id number] TRANSTHORACIC ECHOCARDIOGRAM REPORT Patient Name: ? REICA LOPEZ ? Reading Physician: ?[id number] Felipe ?PachecoMD, FACC Study Date: ? 11/28/2024 ? Ordering Provider: ?[id number] LEANNA Panchal ?ISAAC MRN/PID: ?[id number] ?Fellow: Accession#: ? [id number] ?Nurse: Date of /Age: ??1940 / 84 ?Broodmare Foreman: ?Ena Grant ?years ? RCS Gender Assigned at ??F ? Additional Staff: : Height: ? 154.94 cm ? Admit Date: ? 11/28/2024 Weight: ? 79.38 kg ?Admission Status: ? Outpatient BSA / BMI: ?1.78 m2 / 33.07 ? Department Location: ??[facility] ?kg/m2 ? Echo Lab Blood Pressure: 108 /60 mmHg Study Type: ?TRANSTHORACIC ECHO (TTE) COMPLETE Diagnosis/ICD: Shortness of breath-R06.02 Indication: ?SOB CPT Codes: ? Echo Complete w Full Doppler-13000 Patient History: Pertinent History: Dyspnea and HTN. Study Detail: The following Echo studies were performed: 2D, M-Mode, Doppler and ?color flow. The patient was awake. PHYSICIAN INTERPRETATION: Left Ventricle: The left ventricular systolic function is normal with a visually estimated ejectionfraction of 60-65%. There is moderate concentric left ventricular hypertrophy. There are no regional wall motion abnormalities. The left ventricular cavity size is normal. There is severely increasedseptal and mildly increased posterior left ventricular wall [...] aortic valve area by VTI is 3.70 cm? with a peak velocity of 1.08 m/s. [...] is structurally normal. There is mild tricuspid regurgitation.The Doppler estimated right ventricular systolic pressure (RVSP) is moderately elevated at 57 mmHg.1+ tricuspid regurgitation. Pulmonic Valve: The pulmonic valve [...] rest is 1.02 m/sec, PG 4 mmHg. ?Peak velocity across the LVOT with valsalva is [...] wall thickness. QUANTITATIVE DATA SUMMARY: 2D MEASUREMENTS: ?Normal Ranges: Ao Root d: ? 3.00 cm ?(2.0-3.7cm) LAs: ? 3.10 cm ?(2.7-4.0cm) IVSd: ?1.80 cm ?(0.6-1.1cm) LVPWd: ? 1.20 cm ?(0.6-1.1cm) LVIDd: ? 3.60 cm ?(3.9-5.9cm) LVIDs: ? 2.70 cm LV Mass Index: ?? 112.6 g/m2 LV % FS ?25.0 % LEFT ATRIUM: ?Normal Ranges: LA Vol A4C: ?47.0 ml ?(22+/-6mL/m2) LA Vol A2C: ?39.9 ml LA Vol BP: ? 46.5 ml LA Vol Index A4C: ??26.4ml/m2 LA Vol Index A2C: ??22.4 ml/m2 LA Vol Index BP: ?? 26.0 ml/m2 LA Area A4C: ? 17.7 cm2 LA Area A2C: ? 15.2 cm2 LA [place] A4C: 5.7 cm LA [place] A2C: 4.9 cm LA Volume Index: ?? 25.1 ml/m2 RIGHT ATRIUM: ? Normal Ranges: RA Vol A4C: ?40.9 ml ?(8.3-19.5ml) RA Vol Index A4C: ??22.9 ml/m2 RA Area A4C: ? 16.2 cm2 RA [place] A4C: 5.4 cm AORTA MEASUREMENTS: ? Normal Ranges: Asc Ao, d: ?2.90 cm (2.1-3.4cm) LV SYSTOLIC FUNCTION: ? Normal Ranges: EF-A4C View: 56 % (>=55%) EF-Visual: ?63 % LV EF Reported: 63 % LV DIASTOLIC FUNCTION: ? Normal Ranges: MV Peak E: ? 0.86 m/s ??(0.7-1.2 m/s) MV Peak A: ? 0.77 m/s ??(0.42-0.7 m/s) E/A Ratio: ? 1.12 ?(1.0-2.2) MV e' 0.087 m/s (>8.0) MV lateral e' ?0.10 m/s MV medial e' ? 0.07 m/s E/e' Ratio: 9.90 (<8.0) MITRAL VALVE: ?Normal Ranges: MV DT: ?184 msec (150-240msec) AORTIC VALVE: ? Normal Ranges: AoV Vmax: 1.08 m/s (<=1.7m/s) AoV Peak P.7 mmHg (<20mmHg) AoV Mean PG: ? 2.0 mmHg (1.7-11.5mmHg) LVOT Max Rob: 1.02 m/s (<=1.1m/s) AoV VTI: ? 21.90 cm (18-25cm) LVOT VTI: ?25.80 cm LVOT Diameter: ? 2.00 cm ??(1.8-2.4cm) AoV Area, VTI: ? 3.70 cm2 (2.5-5.5cm2) AoV Area,Vmax: ? 2.97 cm2 (2.5-4.5cm2) AoV Dimensionless Index: 1.18 RIGHT VENTRICLE: RV Basal 3.50 cm RV Mid ?? 2.30 cm RV Major 7.4 cm TAPSE: ?? 26.7 mm RV s' ?0.15 m/s TRICUSPID VALVE/RVSP: ?Normal Ranges: Peak TR Velocity: ? 3.68 m/s Est. RA Pressure: ? 3 mmHg RV Syst Pressure: 57 mmHg (< 30mmHg) IVC Diam: ? 1.50 cm PULMONIC VALVE: ?Normal Ranges: PV Accel Time: 121 msec (>120ms) PV Max Rob: ? 1.0 m/s ??(0.6-0.9m/s) PV Max PG: ?3.9 mmHg [id number] Felipe Tolbert MD, [facility] Electronically signed on 11/28/2024 at 4:04:26 PM Final Procedure Note Felipe Tolbert MD - 11/28/2024 [place] [id number] TRANSTHORACIC ECHOCARDIOGRAM REPORT Patient Name: ERICA Ni Physician: [id number] Tolbert MD,[facility] Study Date: 11/28/2024 Ordering Provider: [id number] QUIROZ MRN/PID: [id number] Fellow: Nurse: Date of /Age: 3 1940 Broodmare Foreman: Riya HANNAH Gender Assigned at F Additional Staff: : Height: 154.94 cm Admit Date: 11/28/2024 Weight: 79.38 kg Admission Status: Outpatient BSA / BMI: 1.78 m2 / 33.07 Department Location: [place] [address] Echo Lab Blood Pressure: 108 /60 mmHg Study Type: TRANSTHORACIC ECHO (TTE) COMPLETE Diagnosis/ICD: Shortness of breath-R06.02 Indication: SOB CPT Codes: Echo Complete w Full Doppler-66962 Patient History: Pertinent History: Dyspnea and HTN. [...] The aortic valve area by VTIis 3.70 cm? with a peak velocity of 1.08 m/s. [...] LA Area A2C: 15.2 cm2 LA [place] A4C: 5.7 cm LA [place] A2C: 4.9 cm LA Volume Index: 25.1 ml/m2 RIGHT ATRIUM: Normal Ranges: RA Vol A4C: 40.9 ml (8.3-19.5ml) RA Vol Index A4C: 22.9 ml/m2 RA Area A4C: 16.2 cm2 RA [place] A4C: 5.4 cm AORTA MEASUREMENTS: Normal Ranges: [...] 1.0 m/s (0.6-0.9m/s) PV Max P.9 mmHg [id number] Felipe Tolbert MD, FACC Electronically signed on [...] mildly increased posterior left ventricular wall thickness. Authorizing ProviderResult TypeResult Caitlyn Quiroz [facility] ECHO PROCEDURESFinal ResultPerforming OrganizationAddressCity/State/ZIP CodePhone Number SYNGO * Pulmonary Stress Test (6 Min. Walk) (11/28/2024 12:50 PM EDT)Specimen (Source) Anatomical Location / LateralityCollection Method / VolumeCollection Time Received Time11/28/2024 12:46 PM EDT11/28/2024 12:46 PM EDT Narrative Authorizing ProviderResult TypeResult Caitlyn Quiroz [facility]FT ORDERABLESFinal ResultPerforming OrganizationAddressCity/State/ZIP CodePhone Number [facility] * Thyroid Stimulating Hormone (07/25/2024 12:25 PM EDT)ComponentValueRef Range Test MethodAnalysis TimePerformed AtPathologist SignatureTSH0.610.40 - 4.50 mIU/LQuest Spawn Labs [facility] HospitalSpecimen (Source)Anatomical Location / LateralityCollection Method / VolumeCollection TimeReceived Time BloodVenous blood specimen / Vyztslx0707/25/2024 12:25 PM EDT07/25/2024 12:26 PM EDT Narrative [facility] - 07/26/2024 7:53 AM EDT FASTING:NO FASTING: NO Authorizing ProviderResult TypeResult Caitlyn Quiroz [facility] BLOOD ORDERABLESFinal ResultPerforming OrganizationAddressCity/State/ZIP CodePhone Number [facility] Breadcrumbtracking [facility] [address] [facility], [address] [place] [address] * (ABNORMAL) Hemoglobin A1C (07/25/2024 12:25 PM EDT)ComponentValueRef RangeTest MethodAnalysis TimePerformed AtPathologist SignatureHEMOGLOBIN A1c5.9(H)<5.7 % Breadcrumbtracking [facility] HospitalComment: For someone without known diabetes, a hemoglobin [...] for diagnosis of diabetes for children. eAG (mg/dL)123mg/dLQuest Haven Behavioral HealthcareeAG (mmol/L)6.8 mmol/LQuest Haven Behavioral HealthcareSpecimen (Source)Anatomical Location / LateralityCollection Method / VolumeCollection TimeReceived TimeBlood Venous blood specimen / Xgtrvvs5507/25/2024 12:25 PM EDT07/25/2024 12:26 PM EDT Narrative [facility] - 07/26/2024 7:53 AM EDT FASTING:NO FASTING: NO Authorizing ProviderResult TypeResult StatusJennshai MCMAHAN BLOOD ORDERABLESFinal ResultPerforming OrganizationAddressCity/State/ZIP CodePhone Number [facility] [address] [facility], [address] [place] [phone] * (ABNORMAL) Lipid Panel (07/25/2024 12:25 PM EDT)ComponentValueRef RangeTest MethodAnalysis TimePerformed AtPathologist SignatureCHOLESTEROL, TBCOY978<200 mg/dLKindred Hospital PittsburghHDL GULKAOROMSW59(L)> OR = 50 mg/dLQuest Haven Behavioral HealthcareTRIGLYCERIDES283(H)<150 mg/dL [facility] PittsburghComment: If a non-fasting specimen was collected, consider repeat triglyceride testing on a fasting specimen if clinically indicated. Kiesha et al. J. of Clin. Lipidol. 2015;9:129-169. LDL-SGWVHPQLIGL39aw/dL (calc)[facility] Comment: Reference range: <100 Desirable range <100 mg/dL for primary prevention; <70 mg/dL for patients with CHD or diabetic patients with > or = 2 CHD risk factors. LDL-C is now calculated using the New calculation, which is a validated novel method providing better accuracy than the Friedewald equation in the estimation of LDL-C. Jesse SS et al. NINFA. 2013;310(19): 5706-5421 (http://education.Seafile.Sales Rabbit/faq/RQV008) CHOL/HDLC RATIO4.5<5.0 (calc)[facility] Hospital PittsburghNON HDL GBUGDLJQZRO024(H)<130 mg/dL (calc)[facility] Comment: For patients with diabetes plus 1 major ASCVD risk factor, treating to a non-HDL-C goal of <100 mg/dL (LDL-C of <70 mg/dL) is considered a therapeutic option. Specimen (Source)Anatomical Location / LateralityCollection Method / Volume Collection TimeReceived TimeBloodVenous blood specimen / Igicvtw7407/25/2024 12:25 PM EDT07/25/2024 12:26 PM EDT Narrative [facility] - 07/26/2024 7:53 AM EDT FASTING:NO FASTING: NO Authorizing ProviderResult TypeResult StatusJennshai MCMAHAN BLOOD ORDERABLESFinal ResultPerforming OrganizationAddressCity/State/ZIP CodePhone Number [facility] [address] [facility], [address] [place] [phone] from Last 3 Months or Most Recently Relevant to Health Maintenance Insurance Care Teams Team MemberRelationshipSpecialtyStart DateEnd Date Leanna Quiroz MD [address] [address] PCP - GeneralFamily Medicine05/19/24
--- OUTSIDE RECORDS SUMMARY | 2025-02-10 00:39 | XMS_ITS | Encounter Summary ---
Author Organization [facility] Address [address] [place] [address] Phone Care Team Providers Care Collaborating Supervising Physician Name Role Phone Leanna Quiroz MD Primary Care Provider + Reason for Visit * ReasonCommentsMed Refill Encounter Details DateTypeDepartmentCare Team (Latest Contact Info)Iznrcsiafbw08/01/2025Refill [facility] [address] [place] [phone] Leanna Quiroz MD [address] [place] [address] [phone] Right sided sciatica Social History Tobacco UseTypesPacks/DayYears UsedDateSmoking Tobacco: NeverSmokeless Tobacco: NeverAlcohol UseStandard Drinks/WeekCommentsNever0 (1 standard drink = 0.6 oz pure alcohol)PHQ-2AnswerDate RecordedPatient Health Questionnaire-2 Score2 11/03/2024CommentsNoSex and Gender InformationValueDate RecordedSex Assigned at BirthNot on fileLegal TcuVefexe29/17/2025 11:21 AM ESTGender IdentityNot on fileSexual OrientationNot on filedocumented as of this encounter Plan of Treatment DateTypeDepartmentCare Team (Latest Contact Info)Phdikyqqpqg89/16/2025 1:00 PM ESTOffice Visit [facility] [address] [place] [phone] Leanna Quiroz MD [address] [place] [address] [address] [place] [address] 08/20/2025 1:00 PM EDTOffice Visit [facility] [address] [facility] [address] [place] [phone] Jona Murillo MD [address] [place] [address] [address] [place] [address] documented as of this encounter Visit Diagnoses Diagnosis Right sided sciatica Sciatica documented in this encounter Additional Health Concerns AssessmentNoted TimePHQ-9 Depression Total Score: 9011/03/2024 11:08 AM EDTA fall risk assessment has been completed for the xufkrfi0712/11/2024 1:15 PM EDT documented as of this encounter Care Teams Team MemberRelationshipSpecialtyStart DateEnd Date Leanna Quiroz MD [address] [place] [address] [address] [place] [address] PCP - GeneralFamily Medicine05/19/24documented as of this encounter
--- OUTSIDE RECORDS SUMMARY | 2025-02-10 00:39 | XMS_ITS | Encounter Summary ---
Author Organization [facility] Address [address] [place] [address] Phone Care Team Providers Care Fire Crew Specialist Name Role Phone Leanna Quiroz MD Primary Care Provider + Encounter Details DateTypeDepartmentCare Team (Latest Contact Info)Kzwppaaqudd63/30/2025Results Follow-Up [facility] [address] [place] [phone] Leanna Quiroz MD [address] [place] [phone] Transthoracic Echo Complete Social History Tobacco UseTypesPacks/DayYears UsedDateSmoking Tobacco: NeverSmokeless Tobacco: NeverAlcohol UseStandard Drinks/WeekCommentsNever0 (1 standard drink = 0.6 oz pure alcohol)PHQ-2AnswerDate RecordedPatient Health Questionnaire-2 Score2 11/03/2024CommentsNoSex and Gender InformationValueDate RecordedSex Assigned at BirthNot on fileLegal FlxXdxhfm13/17/2025 11:21 AM ESTGender IdentityNot on fileSexual OrientationNot on filedocumented as of this encounter Functional Status * BPAnswerDate of XaoosjjfusNzrsck912/6009 1:16 PM Joleen Contreras CMA * PulseAnswerDate of NxhfyrsipdNkgdcp9509 1:15 PM Joleen Contreras CMA * Communicable Disease ScreeningQuestionAnswerDate of AssessmentAuthorDo you have any of the following new or worsening symptoms?None of these12/11/2024 1:01 PM Kaylie Horn documented as of this encounter Plan of Treatment DateTypeDepartmentCare Team (Latest Contact Info)Woqoojcotiw94/16/2025 1:00 PM ESTOffice Visit [facility] [address] [facility] [address] [place] [address] Leanna Quiroz MD [address] [place] [address] [address] [place] [address] 08/20/2025 1:00 PM EDTOffice Visit [address] [place] [address] Jona Murillo MD [address] [place] [address] [address] [place] [address] documented as of this encounter Visit Diagnoses Not on filedocumented in this encounter Additional Health Concerns AssessmentNoted TimePHQ-9 Depression Total Score: 9011/03/2024 11:08 AM EDTA fall risk assessment has been completed for the bmhwxhy3911/03/2024 11:09 AM EDT documented as of this encounter Care Teams Team MemberRelationshipSpecialtyStart DateEnd Date Leanna Quiroz MD [address] [place] [address] [address] [place] [address] PCP - GeneralFamily Medicine05/19/24documented as of this encounter
--- OUTSIDE RECORDS SUMMARY | 2025-02-10 00:39 | XMS_ITS | Clinical Summary ---
Author Organization [facility] Address [address] [facility] [place] [address] Care Team Providers Care Shipyard Painting Supervisor Name Role Phone Unavailable Primary Care Provider Unavailabl e Encounters DateTypeDepartmentCare BfcqTjxjjeyhvlf30/19/2025Telephone [facility] [address] [place] [address] Adenike Dao MA 12/19/2024Orders Only [facility] [address] [place] [address] Adenike Dao MA SOB (shortness of breath) (Primary Dx)from Last 3 Months Social History Tobacco UseTypesPacks/DayYears UsedDateSmoking Tobacco: Never Assessed CommentsUnknownSex and Gender InformationValueDate RecordedSex Assigned at Not on fileLegal HuxMqvlrg74/23/2025 7:26 PM EDTGender IdentityNot on fileSexual OrientationNot on file Plan of Treatment Not on file
[2025-02-10 00:40] LABS: Hematocrit 42.8 % (36.0-48.0); Hemoglobin 13.6 g/dL (12.0-16.0); Immature Granulocytes Abs Auto 0.03 10^3/uL (0.00-0.03); Immature Granulocytes Pct Auto 0.4 % (0.0-0.5); Lymphocytes Absolute Auto 1.4 10^3/uL (1.2-3.8); Mean Corpuscular HGB Conc 31.8 g/dL (29.9-35.2); Mean Corpuscular Hemoglobin 34.2 pg (26.7-34.0); Mean Corpuscular Volume 107.5 fL (81.0-99.0); Platelet Count 293 10^3/uL (150-450); Red Blood Count 3.98 10^6/uL (4.20-5.40); White Blood Count 8.5 10^3/uL (4.0-11.0)
[2025-02-10 00:41] LABS: Glucose Urine UA NEGATIVE (NEGATIVE)
[2025-02-10 00:47] LABS: Cast Seen? SEEN #/LPF (NONE SEEN); Crystals Seen? None Seen #/HPF (None Seen)
[2025-02-10 00:48] LABS: Urine Culture Indicated YES-FRMC
[2025-02-10 00:55] LABS: Alanine Aminotransferase 36 U/L (14-59); Albumin Globulin Ratio 0.9; Albumin Level 3.7 g/dL (3.4-5.0); Alkaline Phosphatase 107 U/L (46-116); Anion Gap 9.9; Aspartate Amino Transferase 21 U/L (15-37); Blood Urea Nitrogen 25.0 mg/dL (7.0-18.0); Calcium 9.9 mg/dL (8.5-10.1); Carbon Dioxide 33.5 mmol/L (21.0-32.0); Chloride 101 mmol/L (98-107); Estimated GFR (African America >60 (>=60 mL/min/1.73m^2); Estimated GFR (Non-African Ame 51 (>=60 mL/min/1.73m^2); Globulin 3.9 g/dL; Glucose 160 mg/dL (74-106); Potassium 4.4 mmol/L (3.5-5.1); Sodium 140 mmol/L (136-145); Total Protein 7.6 g/dL (6.4-8.2)
[2025-02-10 00:58] LABS: Lactate/Lactic Acid 1.3 mmol/L (0.4-2.0)
[2025-02-10] MEDS: 0.9 % SODIUM CHLORIDE 1,000 ML 999 ML IV (01:14)
[2025-02-10] MEDS: 0.9 % SODIUM CHLORIDE 1,000 ML 60 ML IV (03:51)
[2025-02-10] MEDS: ENOXAPARIN SODIUM 40 MG/0.4 ML SYRINGE SUBQ ×2 (03:51→09:00)
[2025-02-10] MEDS: LEVOTHYROXINE SODIUM 100 MCG TABLET PO (05:48)
[2025-02-10 06:07] LABS: Alanine Aminotransferase 29 U/L (14-59); Albumin Globulin Ratio 1.0; Albumin Level 3.4 g/dL (3.4-5.0); Alkaline Phosphatase 99 U/L (46-116); Anion Gap 7.7; Aspartate Amino Transferase 17 U/L (15-37); Blood Urea Nitrogen 22.0 mg/dL (7.0-18.0); Calcium 9.3 mg/dL (8.5-10.1); Carbon Dioxide 31.7 mmol/L (21.0-32.0); Chloride 103 mmol/L (98-107); Estimated GFR (African America >60 (>=60 mL/min/1.73m^2); Estimated GFR (Non-African Ame >60 (>=60 mL/min/1.73m^2); Globulin 3.5 g/dL; Glucose 136 mg/dL (74-106); Magnesium 2.2 mg/dL (1.8-2.4); Potassium 4.4 mmol/L (3.5-5.1); Sodium 138 mmol/L (136-145); Total Protein 6.9 g/dL (6.4-8.2)
[2025-02-10] MEDS: BUSPIRONE HCL 10 MG TABLET PO (09:00)
[2025-02-10] MEDS: ASPIRIN 81 MG TABLET.DR PO (09:00)
[2025-02-10] MEDS: ACETAMINOPHEN 325 MG TABLET 650 MG PO ×2 (09:08→22:14)
--- NOTE | 2025-02-10 09:15 | CM.NOTE ---
Rounds made with Dr. Culver, discussed with pt reason for admission and plan of care. No discharge today. Dr. Culver will reach out to pt's son for update on plan of care. PT and OT will evaluate pt today for discharge planning.
--- NOTE | 2025-02-10 09:45 | CM.NOTE ---
CM in to speak with pt regarding code status. Explained to pt DNRCC, DNRCCA, and full code. Pt at this time states she has paperwork completed at home and wishes are for DNRCCA. Updated Dr. Culver, code status completed.
[2025-02-10 10:03] LABS: TSH W/ REFLEX FT4 3.264 uIU/mL (0.358-3.740)
--- NOTE | 2025-02-10 10:15 | CM.NOTE ---
Medicare Outpatient Observation Notice discussed with pt and son, both verbalize understanding. Son signs Medicare paper, original given to pt and copy placed on pt's chart. Update sent to Dr. Culver that son is at bedside for update.
--- NOTE | 2025-02-10 12:14 | PM.IMHP1 ---
Internal Medicine - H&P: HPI History of Present Illness Chief complaint: UTI, WEAKNESS Narrative: Miss Lopez is an 84-year-old female who was admitted the hospital overnight with a chief complaint of altered mental status yesterday. She was brought in by her son, apparently there is a very sudden and drastic decrease in her mental status, she was very confused and separately brought in the hospital. The patient does not remember this at all. She has some degree of dementia but otherwise is usually very communicative and she is alert and oriented by 3 at baseline. She has had numerous back injections for her chronic back pain with a recent diagnosis of bursitis status post post that sounds like a laparoscopic bursectomy of her right hip. She has been on baclofen chronically for some time, it was recently told to the son that they can increase the dose and take double the usual amount to see if it would help improve her pain. They just did this yesterday. In the emergency room she was found to have a urinary tract infection. She was admitted on IV antibiotics and her home medications were held pending mental status. The patient was able to tell me all this, she is awake and alert this morning, her son was actually present at bedside roughly 1 hour later and confirmed all of the above. We also discussed CODE STATUS, it is confirmed that she is a DNR CCA without intubation. It should be noted that the patient was admitted overnight by my partner, signout was given to my partner and basic orders were placed, I saw the patient this morning on rounds around 9:00 AM. Review of Systems ROS Status of ROS 10 or more systems reviewed and unremarkable except as noted in history and below [facility] Medical History (Updated 02/10/25 @ 12:21 by LEANNE REYES DO) Low back pain ?M54.50 - Low back pain, unspecified (ICD-10) Osteoarthritis ?M19.90 - Unspecified osteoarthritis, unspecified site (ICD-10) Glaucoma ?H40.9 - Unspecified glaucoma (ICD-10) Hypertension ?I10 - Essential (primary) hypertension (ICD-10) Surgical History H/O thyroidectomy ?Z98.890 - Other specified postprocedural states (ICD-10) ?Z90.89 - Acquired absence of other organs (ICD-10) H/O: hysterectomy ?Z90.710 - Acquired absence of both cervix and uterus (ICD-10) Social History (Updated 02/10/25 @ 04:00 by Clare Rosario RN) Within the past year, how often did you have a drink containing alcohol: never Score interpretation: A score less than 3 is consistent with normal alcohol consumption. Highest level of school completed/degree received: high school graduate Are you now , , , , never or living with a partner: In a typical week, how many times do you talk on the telephone with family, friends, or neighbors: 3 or more times per week How often do you get together with friends or relatives: 3 or more times per week Little interest or pleasure in doing things: not at all Feeling down, depressed, or hopeless: not at all Feel stressed/tense/nervous/anxious/difficulty sleeping: not at all Gender Identity: female Meds Home Medications and Allergies Home Medications ?Medication ?Instructions ?Recorded ?Confirmed ?Type calcium phosphate,dibasic 77 1 tab PO DAILY 09/04/24 02/10/25 History mg-vitamin D3 400 unit tablet levothyroxine 100 mcg tablet 100 mcg PO DAILY 09/04/24 02/10/25 History (Synthroid) losartan 50 mg tablet 50 mg PO BID 09/04/24 02/10/25 History multivitamin 1 tab PO DAILY 09/04/24 02/10/25 History nifedipine 60 mg tablet,extended 60 mg PO DAILY 09/04/24 02/10/25 History release paroxetine HCl 20 mg tablet 20 mg PO DAILY 09/04/24 02/10/25 History polyethylene glycol 3350 17 17 g PO DAILY PRN constipation 09/04/24 02/10/25 History gram/dose oral powder (Miralax) propranolol 120 mg capsule,24 120 mg PO BID 09/04/24 02/10/25 History hr,extended release baclofen 10 mg tablet 10 mg PO TID PRN back pain 10/30/24 02/10/25 History buspirone 10 mg tablet 10 mg PO DAILY 10/30/24 02/10/25 History gabapentin 100 mg capsule 200 mg PO Q8H 10/30/24 02/10/25 History Allergies Allergy/AdvReac Type Severity Reaction Status Date / Time morphine Allergy Mild Unknown Verified 02/10/25 00:03 Exam Narrative Exam Narrative: General: Awake alert, no acute distress, she is laying in bed with head of bed elevated for 20 degrees, her left hand is underneath her lower back to provide some support. HEENT: mouth is full of food as she is eating. Age-related dental changes. Neck: supple no masses, no lymphadenopathy CVS: regular rate and rhythm, no murmurs or gallops Respiratory: clear to auscultation bilaterally, no wheezing or crackles, symmetric expansion Back: No tenderness to palpation over spinous process GI: soft, nondistended, nontender, positive bowel sounds with no organomegaly Extremity: moves all extremities, no restrictions of movements, no calf tenderness, no edema. There are 2 small healing laparoscopic incisions from her prior surgery. No drainage, no erythema. Very minor pain to palpation in the surrounding region. Neuro: AOx3, CN II-VII intact. Moves all extremities in all planes of motion. Skin: dry, intact no rashes or lesions Constitutional Vital Signs, click to edit/add: Last Vital Signs Temp 97.6 F 02/10/25 12:00 Pulse 59 L 02/10/25 12:00 Resp 18 02/10/25 03:19 BP 111/64 02/10/25 12:00 Pulse Ox 93 L 02/10/25 12:00 O2 Del Method Nasal Cannula 02/10/25 12:00 O2 Flow Rate 4 02/10/25 12:00 Internal Medicine - H&P: Reslt Labs Labs: Short CBC 02/10/25 Range/Units 00:30 WBC 8.5 (4.0-11.0) 10^3/uL Hgb 13.6 (12.0-16.0) g/dL Hct 42.8 (36.0-48.0) % Plt Count 293 (150-450) 10^3/uL BMP 02/10/25 02/10/25 00:30 05:16 Sodium 140 138 Potassium 4.4 4.4 Chloride 101 103 Carbon Dioxide 33.5 H 31.7 BUN 25.0 H 22.0 H Creatinine 1.02 0.76 Glucose 160 H 136 H Calcium 9.9 9.3 Liver Function 02/10/25 02/10/25 Range/Units 00:30 05:16 Total Bilirubin 0.5 0.3 (0.2-1.0) mg/dL AST 21 17 (15-37) U/L ALT 36 29 (14-59) U/L Alkaline Phosphatase 107 99 (46-116) U/L Albumin 3.7 3.4 (3.4-5.0) g/dL Urine 02/10/25 Range/Units 00:01 Urine Color Yellow (YELLOW) Urine Clarity Clear (CLEAR) Urine pH 5.5 (5.0-9.0) Ur Specific [place] 1.025 (1.005-1.025) Urine Protein Trace (NEG/TRACE) mg/dL Urine Glucose (UA) Negative (NEGATIVE) mg/dL Assessment and Plan Assessment and Plan (1) Polypharmacy: Assessment and Plan: ? Patient was taken double her prescribed dose of baclofen for 1 to 2 days, she was given permission to do this however it apparently was too much ? Her baclofen was held upon admission ? Her mentation is improved this morning, will continue at 5 mg 3 times daily, I did discuss with the son (2) Acute UTI: Assessment and Plan: ? Delirium secondary to infection likely also playing a significant role in her presenting symptoms yesterday evening ? Continue ceftriaxone as ordered (3) Generalized weakness: Assessment and Plan: PT OT (4) Lumbar stenosis with neurogenic claudication: Assessment and Plan: ? Follow-up with pain management upon discharge ? Continue medications as ordered (5) Hypothyroid: Assessment and Plan: ? Her TSH this morning is 3.26, given her age of 84 her dose of levothyroxine could likely be titrated down. Will defer this to her primary care physician who knows her better, would hate to decrease the dose causing her worsening weakness given her chronic pain problems and she is not here for any side effects of this medication. Plan ? DVT prophylaxis addressed ? Full code ? Normal diet Disposition pending how she responds to resuming her baclofen and responding to antibiotics.
--- NOTE | 2025-02-10 12:26 | SWNOTE1 ---
SW met with pt to discuss dc needs. Pt was sitting up in chair and has oxygen on. Pt lives at home with her son. Pt moved her from [place] to live with her son. She voiced she thought she over heard her son telling someone that she has been here for about a year. Pt uses a walker at home. She stated her son told therapy that she walks about 100 feet at home. She goes from her chair to the bathroom several times a day. SW asked her about home oxygen. She stated she usually just wears it at night and sometimes during day if she is short of breath. SW asked if it was a mask at night and she stated no it was nasal canula. She was unsure who prescribed it and how long she had it. She voiced she gets confused with all the doctors and moving to [place]. SW asked permission to call her son, pt is alright with this. SW did discuss therapy recommendations of HH or brief skilled stay. SW did explain [facility] facility versus HH services. Pt voiced her son does not want her to go to nursing facility and she does not want to go either, she prefers HH. Pt is unsure of HH companies. SW to call her son and discuss discharge planning in further detail.
--- NOTE | 2025-02-10 12:45 | SWNOTE1 ---
MAGNOLIA called pt's son, Teresa, and spoke with him on the phone. Pt has been living with son for about a year. SW did let him know recommendations of SNF or Home Health services. Pt's son is in agreement with pt and he does not want her to go to a detention, but he is open to home health. He does not have any preferences on home health companies, as long as they accept Medicare and her secondary. MAGNOLIA advised Medicare gives a certain number of visits and determines when pt is discharged from home health services. MAGNOLIA did ask about home oxygen. He voiced that when she ambulates to and from bathroom or anywhere in home she does get short of breath and will need to put the oxygen back on when she sits down. She also wears at night. He voiced she has a portability and a concentrator. She gets it from [employer]. SW to call [facility]. At this time pt's son has no further questions or concerns. MAGNOLIA called [employer] and pt's oxygen order is for 2 liters continuous. MAGNOLIA updated the nurse and Dr. Culver. Referral sent to [facility]. Referral included face sheet, ED note, H&P, provider notes, case management report, med list, and PT/OT notes.
[2025-02-10] MEDS: GABAPENTIN 100 MG CAPSULE 200 MG PO ×2 (14:07→21:37)
[2025-02-10] MEDS: BACLOFEN 10 MG TABLET 5 MG PO ×2 (14:07→21:37)
--- NOTE | 2025-02-10 15:20 | SWNOTE1 ---
SW called [facility] and spoke to Meaghan and they received referral and have accepted.
--- OUTSIDE RECORDS SUMMARY | 2025-02-10 19:39 | XMS_ITS | Continuity of Care Document ---
Author Organization [facility] Address [address] [place] [address] Phone Care Team Providers Care Branch Account Manager Name Role Phone Chad Robles MD Attending Provider Care Teams Patient Care Team Team Status: Inactive Member Role/Relationship Status Dates Chad Robles MD Attending Provider Active St art: February 10, 2025 End: February 10, 2025 Social History Smoking Status Unknown if ever smoked Observation Status Observation Response Date of Response Legal Sex Female (finding) [facility] Procedures Procedure Date Performed Status Urine Culture February 10, 2025 active Encounters Encounter Location(s) Arrival/Admit Date Discharge/Departure Date Discharge/Departure Disposition Provider(s) Departed Referred -[facility] February 10, 2025 12:01am February 10, 2025 12:02am Discharged to home care or self care (routine discharge) Chad Robles MD Plan of Treatment Future Tests Future scheduled test information is unavailable Pending Tests Test Name Ordered Date Scheduled Date Urine Culture February 10, 2025 12:01am Future Visits Future appointment information is unavailable Future Procedures Procedure Name Ordered Date Scheduled Date Urine Culture February 10, 2025 3:25pm Novem 2024 12:01am Future Medications Future medication information is unavailable Patient Instructions Patient instructions are unavailable
[2025-02-10] MEDS: LOSARTAN POTASSIUM 50 MG TABLET PO (21:37)
[2025-02-10] MEDS: DIAZEPAM 2 MG TABLET PO (22:15)
[2025-02-10] MEDS: POLYETHYLENE GLYCOL 3350 17 GM POWDER PACKET PO (22:18)
[2025-02-11] VITALS (20 sets, daily range): BP systolic 109–146; BP diastolic 49–76; PULSE 66–92; TEMP 36.7–36.9; O2SAT 90–96
[2025-02-11] MEDS: GABAPENTIN 100 MG CAPSULE 200 MG PO ×3 (05:30→21:12)
[2025-02-11] MEDS: BACLOFEN 10 MG TABLET 5 MG PO (05:30)
[2025-02-11] MEDS: LEVOTHYROXINE SODIUM 100 MCG TABLET PO (05:30)
[2025-02-11 06:10] LABS: Anion Gap 7.6; Blood Urea Nitrogen 18.0 mg/dL (7.0-18.0); Calcium 9.4 mg/dL (8.5-10.1); Carbon Dioxide 31.9 mmol/L (21.0-32.0); Chloride 105 mmol/L (98-107); Estimated GFR (African America >60 (>=60 mL/min/1.73m^2); Estimated GFR (Non-African Ame >60 (>=60 mL/min/1.73m^2); Glucose 105 mg/dL (74-106); Magnesium 2.3 mg/dL (1.8-2.4); Potassium 4.5 mmol/L (3.5-5.1); Sodium 140 mmol/L (136-145)
--- NOTE | 2025-02-11 08:31 | OT.DAILY ---
Occupational Therapy Daily Note OT Inpatient Daily Visit Note Start: 02/10/25 10:41 Freq: Status: Active Protocol: Document 02/11/25 08:17 [id number] (Rec: 02/11/25 08:31 [id number]) OT Visit Details Time In/Time Out Time In 08:05 Time Out 08:14 OT Treatment Plan Subjective Subjective Pt states I am tired but is willing to participate in self-care. Reports pain is intermittent at 7/10. Objective Objective Pt supine in bed, intermittently falling asleep. Demonstrates no motivation to eat breakfast. With set up of supplies Pt completed UB hygiene with washcloth, reaching outside TOD and crossing midline. Good application of anti-perspirant with Min A to adjust clothing for appropriate positioning. Pt drowsy and requires 2-4 VCs for participation. Assessment Assessment Pt tolerated treatment well, agreeable and cooperative with all tasks. Intermittently falling asleep with eyes closed most of session. Required extended processing time to answer questions and follow requests. Able to maintain O2 NC, no SOB or wheezing. Short Term Goals STG 1 Patient will be able to complete bed mobility and chair transfers with min assist or better to improve access to ADL's. STG 2 Patient will be able to ambulate to the bathroom using WW with CGA, and complete grooming/oral care with SBA or better using good safety. STG 3 Patient will be educated to adaptive equipment for LB dressing to improve her independence with LB ADL's. STG 4 Patient will increase bilateral UE strength 1/2 grade or more to improve ADL skills. OT Barrel Centerer Timed Codes Self-Residential 9 Management minutes ( minutes) Self-Residential 1 Management units
[2025-02-11] MEDS: LOSARTAN POTASSIUM 50 MG TABLET PO ×2 (09:08→21:12)
[2025-02-11] MEDS: ENOXAPARIN SODIUM 40 MG/0.4 ML SYRINGE SUBQ (09:08)
[2025-02-11] MEDS: PAROXETINE HCL 20 MG TABLET PO (09:08)
[2025-02-11] MEDS: BUSPIRONE HCL 10 MG TABLET PO (09:08)
[2025-02-11] MEDS: ACETAMINOPHEN 325 MG TABLET 650 MG PO ×2 (09:08→22:52)
[2025-02-11] MEDS: ASPIRIN 81 MG TABLET.DR PO (09:08)
--- NOTE | 2025-02-11 12:48 | CT_ITS ---
[address] [address] Patient Name: CEDRICK LEGER MRN: [id number] date: 1940 Sex: F Assigned Patient Location: [place] Current Patient Location: [place] Accession/Order Number: [id number] Exam Date: 02/11/2025 13:24 Report Date: 02/11/2025 14:34 At the request of: LEANNE REYES DO Procedure: CT head/brain wo con CT head/brain wo con 02/11/2025 1:34 PM SIGNS AND SYMPTOMS: Fall hitting back of head TECHNIQUE:Multi-detector CT axial slices of the brain were obtained without IV contrast. CT was performed with one or more of the following dose reduction techniques: Automated exposure control, adjustment of the mA and/or kV according to patient size, or use of iterative reconstruction technique. COMPARISON: 02/10/2025 FINDINGS: There is no shift of the midline structures, acute intracranial bleeding, mass effects, or evidence of acute ischemia. There is age-related cortical atrophy. The ventricular system is normal in size. The brainstem and the cerebellum are unremarkable. There is partial opacification of the maxillary sinuses, ethmoid air cells, and frontal sinuses. There is a right mastoid effusion. The visualized intraorbital contents and the infratemporal soft tissues show no acute abnormality. The osseous structures in the skull base and the calvarium show no abnormality. Soft tissue swelling is noted in the subcutaneous soft tissues of the posterior parietal and occipital scalp. CT/CT head/brain wo con IMPRESSION: No acute intracranial pathology. There is partial opacification of the maxillary sinuses, ethmoid air cells, and frontal sinuses. There is a right mastoid effusion. Impression dictated by: Krystian Gregory M.D. 02/11/2025 2:34 PM Dictation Location: [place] [address] Electronically authenticated by: [id number] Y Date: 02/11/2025 14:34
--- NOTE | 2025-02-11 13:08 | PC.NURSE ---
patient was assisted to the bathroom with just standby assist. Patient was much more alert than she was earlier in the shift. Patient was left on the toilet and instructed to pull the string when she was done and she verbalized understanding. Maybe a couple minutes later a loud thud was heard. this RN found patient on the bathroom floor, she states she was trying to wipe herself and states she thought she pulled the string even though she did not. Patient states she hit the back of her head. A knot is noted on the back of her head but no skin was broken. Dr. Culver was notified and a head CT was ordered. Vital signs obtained and RN will notify the family
[2025-02-11] MEDS: 0.9 % SODIUM CHLORIDE 250 ML 10 ML IV (13:35)
--- NOTE | 2025-02-11 13:45 | CM.NOTE ---
Rounds made with Dr. Culver, discussed plan of care with pt and pt's son. Son voiced concerns about patient being out of it . Dr Culver thinks it may be related to the Baclofen. Orders placed to discontinue the Baclofen.
--- NOTE | 2025-02-11 14:09 | P.PN_ITS ---
Progress Note: Subjective Subjective Interval history: Seen and evaluated this morning, she is currently lying in bed, the son is present at bedside actually approached me in the hallways. He is concerned that she is more lethargic like she was initially which made him bring her to the hospital. We did do a full medication review in the hallway, I did let him know that I resumed her baclofen at her lower/normal dose yesterday after rounding which was explained to him during rounds. Apparently after that she became much more lethargic and she slept for some of the afternoon and did not get a good night sleep overnight. He is now also concern for . We discussed her medication regimen and that I will be holding baclofen. Patient is laying in bed, she does seem slightly more lethargic than yesterday however she is awake and alert, she is able to answer all orientation questions properly and her mentation is at baseline. She is denying any worsened pain than yesterday. She is agreeable to holding her baclofen. The son is asking about alternative regimens, I did mention MS Contin however this is likely prescribed by a pain management doctor and not by hospitalist on hospital discharge. I will attempt Toradol 15 mg IV push one-time today to see if that helps improve her pain. Exam Narrative Exam Narrative: General: Awake alert, no acute distress, she is laying in bed with head of bed elevated for 20 degrees, son is present at bedside. Slightly more lethargic than yesterday. HEENT: Moist mucous membranes, age-related mental changes noted CVS: regular rate and rhythm, no murmurs or gallops Respiratory: clear to auscultation bilaterally, no wheezing or crackles, symmetric expansion Back: No tenderness to palpation over spinous process GI: soft, nondistended, nontender, positive bowel sounds with no organomegaly Extremity: moves all extremities, no restrictions of movements, no calf tenderness, no edema. There are 2 small healing laparoscopic incisions from her prior surgery. No drainage, no erythema. Very minor pain to palpation in the surrounding region. Neuro: AOx3, CN II-VII intact. Moves all extremities in all planes of motion. Constitutional Vital Signs, click to edit/add: Last Vital Signs Temp 98.2 F 02/11/25 13:07 Pulse 75 02/11/25 14:00 Resp 18 02/11/25 13:07 BP 129/70 11/12/25 13:07 Pulse Ox 95 02/11/25 13:13 O2 Del Method Nasal Cannula 02/11/25 13:13 O2 Flow Rate 3 02/11/25 13:13 Progress Note: Objective Labs Labs: [facility] 02/11/25 04:52 Sodium 140 Potassium 4.5 Chloride 105 Carbon Dioxide 31.9 BUN 18.0 Creatinine 0.62 Glucose 105 Calcium 9.4 Progress Note: A&P Assessment and Plan (1) Polypharmacy: Assessment and Plan: ? I did resume her baclofen at her normal dose of 5 mg every 8 yesterday, her lethargy returned shortly after that. ? Hold baclofen here indefinitely. ? Mental status was improving throughout the day, she was alert and oriented this morning however she did appear more alert and waking up more in the afternoon. ? This was discussed with the son. (2) Acute UTI: Assessment and Plan: ? Continue antibiotics as ordered. (3) Generalized weakness: Assessment and Plan: PT OT as ordered (4) Lumbar stenosis with neurogenic claudication: Assessment and Plan: See above, will attempt 1 dose of 50 mg Toradol IV push today to see if that helps improve her pain. If it does we will recommend to the son to alternate Tylenol and Advil and continue to follow-up with pain management. (5) Hypothyroid: Assessment and Plan: ? Continue her home dose levothyroxine (6) Fall: Assessment and Plan: ? Had a fall in the bathroom this afternoon, she was told to let the nurse know when she was finished and she fell over trying to get up on her own. ? She did hit the back of her head ? Neurological exam is unchanged from this morning, she is awake and alert by 3, cranial nerves II through XII are intact, there is no evidence of any external bleeding. ? CT scan head without contrast ordered. ?I did let the son know. Plan ? DVT prophylaxis addressed ? Regular diet ? Full code ? I did order 12.5 mg Seroquel nightly to help mitigate any issues with Potential discharge tomorrow pending her clinical status.
[2025-02-11] MEDS: KETOROLAC TROMETHAMINE 30 MG/ML VIAL 15 MG IVP (14:23)
--- NOTE | 2025-02-11 14:32 | SWNOTE1 ---
No discharge for patient today, SW to send updates to [facility].
--- NOTE | 2025-02-11 15:31 | CM.NOTE ---
Preliminary urine culture result sent to Dr Culver via [facility] text
--- NOTE | 2025-02-11 15:53 | SWNOTE1 ---
No discharge today for pt. SW faxed updated PT/OT and physician note to [facility]. SW did review PT note and son is still preferring HH over skilled.
[2025-02-11] MEDS: POLYETHYLENE GLYCOL 3350 17 GM POWDER PACKET PO (19:43)
[2025-02-11] MEDS: QUETIAPINE FUMARATE 25 MG TABLET 12.5 MG PO (21:12)
[2025-02-11] MEDS: DIAZEPAM 2 MG TABLET PO (21:14)
[2025-02-12] VITALS (11 sets, daily range): BP systolic 127–146; BP diastolic 68–73; PULSE 75–91; TEMP 36.5–36.9; O2SAT 90–96
[2025-02-12] MEDS: LEVOTHYROXINE SODIUM 100 MCG TABLET PO (06:01)
[2025-02-12] MEDS: GABAPENTIN 100 MG CAPSULE 200 MG PO (06:01)
--- OUTSIDE RECORDS SUMMARY | 2025-02-12 07:57 | XMS_ITS | Clinical Summary ---
Author Organization [facility] Address [address] [facility] [place] [address] Care Team Providers Care Residential Sales Manager Name Role Phone Unavailable Primary Care Provider Unavailabl e Encounters DateTypeDepartmentCare XkjhNwsluberbua52/19/2025Telephone [facility] [address] [place] [address] Adenike Dao MA 12/19/2024Orders Only [facility] [address] [place] [address] Adenike Dao MA SOB (shortness of breath) (Primary Dx)from Last 3 Months Social History Tobacco UseTypesPacks/DayYears UsedDateSmoking Tobacco: Never Assessed CommentsUnknownSex and Gender InformationValueDate RecordedSex Assigned at Not on fileLegal LilQxcwcy62/23/2025 7:26 PM EDTGender IdentityNot on fileSexual OrientationNot on file Plan of Treatment Not on file
--- OUTSIDE RECORDS SUMMARY | 2025-02-12 07:57 | XMS_ITS | Encounter Summary ---
Author Organization [facility] Address [address] [place] [address] Phone Care Team Providers Care Ball Shagger Name Role Phone Leanna Quiroz MD Primary Care Provider + Encounter Details DateTypeDepartmentCare Team (Latest Contact Info)Yuncltptjuh31/30/2025Results Follow-Up [facility] [address] [place] [phone] Leanna Quiroz MD [address] [place] [phone] Transthoracic Echo Complete Social History Tobacco UseTypesPacks/DayYears UsedDateSmoking Tobacco: NeverSmokeless Tobacco: NeverAlcohol UseStandard Drinks/WeekCommentsNever0 (1 standard drink = 0.6 oz pure alcohol)PHQ-2AnswerDate RecordedPatient Health Questionnaire-2 Score2 11/03/2024CommentsNoSex and Gender InformationValueDate RecordedSex Assigned at BirthNot on fileLegal TmzBcjdzo89/17/2025 11:21 AM ESTGender IdentityNot on fileSexual OrientationNot on filedocumented as of this encounter Functional Status * BPAnswerDate of AhskxovjiyYelomk659/6009 1:16 PM Joleen Contreras CMA * PulseAnswerDate of LjsuwhucfxWqsykw2465 1:15 PM Joleen Contreras CMA * Communicable Disease ScreeningQuestionAnswerDate of AssessmentAuthorDo you have any of the following new or worsening symptoms?None of these12/11/2024 1:01 PM Kaylie Horn documented as of this encounter Plan of Treatment DateTypeDepartmentCare Team (Latest Contact Info)Fdmvxzxsksa13/16/2025 1:00 PM ESTOffice Visit [facility] [address] [facility] [address] [place] [address] Leanna Quiroz MD [address] [place] [address] [address] [place] [address] 08/20/2025 1:00 PM EDTOffice Visit [address] [place] [address] Jona Murillo MD [address] [place] [address] [address] [place] [address] documented as of this encounter Visit Diagnoses Not on filedocumented in this encounter Additional Health Concerns AssessmentNoted TimePHQ-9 Depression Total Score: 9011/03/2024 11:08 AM EDTA fall risk assessment has been completed for the bodfgqm6511/03/2024 11:09 AM EDT documented as of this encounter Care Teams Team MemberRelationshipSpecialtyStart DateEnd Date Leanna Quiroz MD [address] [place] [address] [address] [place] [address] PCP - GeneralFamily Medicine05/19/24documented as of this encounter
--- OUTSIDE RECORDS SUMMARY | 2025-02-12 07:57 | XMS_ITS | Encounter Summary ---
Author Organization [facility] Address [address] [place] [address] Phone Care Team Providers Care Hr Shared Services Consultant Name Role Phone Leanan Quiroz MD Primary Care Provider + Reason for Visit * ReasonCommentsMed Refill Encounter Details DateTypeDepartmentCare Team (Latest Contact Info)Oqtotplenvy64/01/2025Refill [facility] [address] [place] [phone] Leanna Quiroz MD [address] [place] [phone] Right sided sciatica Social History Tobacco UseTypesPacks/DayYears UsedDateSmoking Tobacco: NeverSmokeless Tobacco: NeverAlcohol UseStandard Drinks/WeekCommentsNever0 (1 standard drink = 0.6 oz pure alcohol)PHQ-2AnswerDate RecordedPatient Health Questionnaire-2 Score2 11/03/2024CommentsNoSex and Gender InformationValueDate RecordedSex Assigned at BirthNot on fileLegal QdcApceav47/17/2025 11:21 AM ESTGender IdentityNot on fileSexual OrientationNot on filedocumented as of this encounter Plan of Treatment DateTypeDepartmentCare Team (Latest Contact Info)Lwsiathobyn10/16/2025 1:00 PM ESTOffice Visit [facility] [address] [place] [phone] Leanna Quiroz MD [address] [place] [address] [address] [place] [address] 08/20/2025 1:00 PM EDTOffice Visit [facility] [address] [facility] [address] [place] [phone] Jona Murillo MD [address] [place] [address] [address] [place] [address] documented as of this encounter Visit Diagnoses Diagnosis Right sided sciatica Sciatica documented in this encounter Additional Health Concerns AssessmentNoted TimePHQ-9 Depression Total Score: 9011/03/2024 11:08 AM EDTA fall risk assessment has been completed for the alcfvng1912/11/2024 1:15 PM EDT documented as of this encounter Care Teams Team MemberRelationshipSpecialtyStart DateEnd Date Leanna Quiroz MD [address] [place] [address] [address] [place] [address] PCP - GeneralFamily Medicine05/19/24documented as of this encounter
--- OUTSIDE RECORDS SUMMARY | 2025-02-12 07:57 | XMS_ITS | Clinical Summary ---
Author Organization [facility] Address [address] [place] [address] Phone Care Team Providers Care Flux Mixer Name Role Phone Leanna Quiroz MD Primary Care Provider + Allergies Active AllergyReactionsCriticalityNoted DateCommentsMorphineDizziness, Nausea/mkzcfzuw65/25/2025 Medications MedicationSigDispense QuantityRefillsLast FilledStart DateEnd DateStatus busPIRone [...] 1 tablet by mouth once daily.Active HYDROcodone-acetaminophen (Fossil) 5-325 mg tablet Take 1 tablet by [...] Problems ProblemNoted DateDiagnosed DateObesity (BMI 30-39.9)12/11/2024Shortness of rvcbnj0512/11/2024Pain in right leg12/11/2024Lipid besffaqgu01/11/2025Never smoked daroskl1712/11/2024bnormal entvanxermnymx41/11/2025bnormal PFTs (pulmonary function tests)12/11/2024Weakness of both lower limbs12/11/2024Glaucoma 12/11/2024Lower leg edema12/11/20244311Viqvgyy65/11/4753Imgdzv19/11/2025LVH (left ventricular hypertrophy)12/11/2024Left ventricular outflow tract obstruction 12/11/2024Inflammation of sacroiliac joint11/19/2024Low back pain, unspecified 11/17/2024Spinal stenosis of lumbar hdnupx5508/27/2024Primary hypertension 07/25/20241750Xdjkedj58/25/2025Grief zvmqjtqa76/25/2025Postoperative hypothyroidism 07/25/2024Motion pcxjdikt22/25/2025 Encounters DateTypeDepartmentCare SfdjSvduyatgwtq56/01/2025Refill [facility] [address] [address] Leanna Quiroz MD Right sided iwjnbuor11/01/2025Telephone [facility] [address] [address] Leanna Quiroz MD 12/11/2024 1:30 PM EDTOffice Visit [facility] [address] [place] [phone] Jona Murillo MD Abnormal echocardiogram (Primary [...] ventricular hypertrophy); Left ventricular outflow tract obstruction (HHS-HCC)12/11/20246409Duzmqy80/08/2025 Telephone [facility] [address] [phone] Leanna Quiroz MD 12/02/2024Orders Only [facility] [address] [place] [address] Leanna Quiroz MD Abnormal mtmgajxcwuxeoo46/30/2025Results Follow-Up [facility] [address] [place] [address], [place] [address] Leanna Quiroz MD Transthoracic Echo Jgwlttmu28/29/2025 12:04 PM EDT - 11/28/2024 11:59 PM EDT Hospital Encounter [facility] [address] [facility] [place] [place] [address] Shortness of breath Discharge Disposition: Home11/28/2024 12:00 PM EDT - 11/28/2024 12:03 PM EDT Hospital Encounter [facility] [address] [facility] [place] [place] [address] Shortness of breath Discharge Disposition: Home11/28/2024Orders Only [facility] [address] [place] [address] Candi Anaya MA Shortness of breath; Cpcltpc7011/28/20247575Ppdvre39/25/2025Orders Only [facility] [address] [place] [address] Leanna Quiroz MD Anxietyfrom Last 3 Months Immunizations ImmunizationAdministration DatesNext DueFlu vaccine, quadrivalent, high-dose, preservative free, age 65y+ (FLUZONE)02/07/20254056GAFZ-PvW-5, Iwnizylomaa22/08/2025 Tdap vaccine, age 7 year and older (BOOSTRIX, ADACEL)09/18/2024 Family History Medical HistoryRelationNameCommentsCancerFatherRelationNameStatusCommentsFather Social History Tobacco UseTypesPacks/DayYears UsedDateSmoking Tobacco: NeverSmokeless Tobacco: Never Tobacco Cessation:Counseling Given: Not Answered Alcohol UseStandard Drinks/WeekCommentsNever0 (1 standard drink = 0.6 oz pure alcohol)PHQ-2AnswerDate RecordedPatient Health Questionnaire-2 Cgjtv818/07/2024 CommentsNoSex and Gender InformationValueDate RecordedSex Assigned at BirthNot on fileLegal GrsTmirbw93/17/2025 11:21 AM ESTGender IdentityNot on file Sexual OrientationNot on file Last Filed Vital Signs Vital SignReadingTime TakenCommentsBlood Mxadhklv279/6009 1:16 PM EDT Accyz6651 1:15 PM QWDHtdndxmjeew79.2 ??C (97.1 ??F)11/03/2024 10:52 AM EDTRespiratory Bgtp128311/03/2024 10:52 AM EDTOxygen Aiborqbgqk36%11/03/2024 10:52 AM EDTInhaled Oxygen Concentration--Xzqxku79.4 kg (175 lb)12/11/2024 1:15 PM EDT Rampde198.2 cm (5' 1.5 )12/11/2024 1:15 PM EDTBody Mass Index32.5309 1:15 PM EDT Plan of Treatment DateTypeDepartmentCare Team (Latest Contact Info)Rizgvktosmd63/16/2025 1:00 PM ESTOffice Visit [facility] [address] [phone] Leanna Quiroz MD 917 [facility] [address] [place] [address] 08/20/2025 1:00 PM EDTOffice Visit [facility] [address] [place] [address] [address] [place] [address] Jona Murillo MD 917 [facility] [address] [place] [address] Health MaintenanceDue DateLast DoneCommentsBone Density Scan08/25/2003Diabetes: Hemoglobin A1CTSH Level07/25//OVID-19 Vaccine ( season)Medicare Annual Wellness Visit (AWV) 608/07/2024Lipid PanelDTaP/Tdap/Td Vaccines (2 - Td or Tdap)Influenza PqgjiboXfbmjexmh77/08/2025HIB VaccinesAged OutNo longer eligible based on patient's age to complete this topicHPV Vaccines Aged OutNo longer eligible based on patient's age to complete this topic Hepatitis A VaccinesAged OutNo longer eligible based on patient's age to complete this topicHepatitis B VaccinesAged OutNo longer eligible based on patient's age to complete this topicIPV VaccinesAged OutNo longer eligible based on patient's age to complete this topicMeningococcal VaccineAged OutNo longer eligible based on patient's age to complete this topicPneumococcal Vaccine DiscontinuedRSV High Risk: (Elderly (60+) or Population)Discontinued Rotavirus VaccinesAged OutNo longer eligible based on patient's age to complete this topicZoster VaccinesDiscontinued Procedures Procedure NamePriorityDate/TimeAssociated DiagnosisCommentsECG 12-LEADRoutine 12/11/2024 1:30 PM EDT Encounter to establish care with new doctor TRANSTHORACIC ECHO (TTE) PPNUZEOUXkalpte77/29/2025 1:51 PM EDT Shortness of breath HC SIX MINUTE FZFSNxvipub78/29/2025 12:50 PM EDT Shortness of breath HEMOGLOBIN L4KFxekgdz65/25/2025 12:25 PM EDT Primary hypertension Postoperative hypothyroidism Anxiety Grief reaction Right sided sciatica Hyperglycemia LIPID EOHGGAjhtlij96/25/2025 12:25 PM EDT Primary hypertension Postoperative hypothyroidism Anxiety Grief reaction Right sided sciatica UWHBhkcykv86/25/2025 12:25 PM EDT Primary hypertension Postoperative hypothyroidism [...] MDECG ORDERABLES Final ResultPerforming OrganizationAddressCity/State/ZIP CodePhone Number [facility] * TRANSTHORACIC ECHO (TTE) COMPLETE (11/28/2024 1:51 PM EDT)ComponentValueRef RangeTest MethodAnalysis TimePerformed AtPathologist SignatureAV mn jicz8nrHa SYNGOAV pk vel1.08m/sSYNGOLVOT diam2.00cmSYNGOMV E/A ratio1.12SYNGOTricuspid annular plane systolic excursion2.7cmSYNGOLA vol index A/L26.0ml/r7VEWLEWB EF 63%SYNGORV free wall pk S'15.40cm/lSFBSLSRZX44fyIhOSEKQHTKJs2.60cmSYNGOAortic Valve Area by Continuity of Peak Velocity2.56gg3KGHEZUV pk secw6zwCcGYPKL Aortic Valve Area by Continuity of VTI3.36jr9EDHPLHK A4C EF56.0SYNGOSpecimen (Source)Anatomical Location / LateralityCollection Method / VolumeCollection TimeReceived Time11/28/2024 1:08 PM EDT Impressions SYNGO - 11/28/2024 [...] increased posterior left ventricular wall thickness. Narrative [facility] - 11/28/2024 4:04 PM EDT ? [place] [id number] TRANSTHORACIC ECHOCARDIOGRAM REPORT Patient Name: ? ERICA LOPEZ ? Reading Physician: ?[id number] Felipe ?Adelaida, FACC Study Date: ? 11/28/2024 ? Ordering Provider: ?[id number] LEANNA Panchal ?ISAAC MRN/PID: ?[id number] ?Fellow: Accession#: ? [id number] ?Nurse: Date of /Age: ??1940 / 84 ?Marketing Producer: ?Ena Grant ?years ? RCS Gender Assigned at ??F ? Additional Staff: : Height: ? 154.94 cm ? Admit Date: ? 11/28/2024 Weight: ? 79.38 kg ?Admission Status: ? Outpatient BSA / BMI: ?1.78 m2 / 33.07 ? Department Location: ??[facility] ?kg/m2 ? Echo Lab Blood Pressure: 108 /60 mmHg Study Type: ?TRANSTHORACIC ECHO (TTE) COMPLETE Diagnosis/ICD: Shortness of breath-R06.02 Indication: ?SOB CPT Codes: ? Echo Complete w Full Doppler-18382 Patient History: Pertinent History: Dyspnea and HTN. [...] Area A2C: ? 15.2 cm2 LA Major Burton A4C: 5.7 cm LA Major Burton A2C: 4.9 cm LA Volume Index: ?? 25.1 ml/m2 RIGHT ATRIUM: ? Normal Ranges: RA Vol A4C: ?40.9 ml ?(8.3-19.5ml) RA Vol Index A4C: ??22.9 ml/m2 RA Area A4C: ? 16.2 cm2 RA Major Burton A4C: 5.4 cm AORTA MEASUREMENTS: ? Normal [...] m/s ??(0.6-0.9m/s) PV Max PG: ?3.9 mmHg [id number] Felipe Tolbert MD, [facility] Electronically signed on 11/28/2024 at 4:04:26 PM Final Procedure Note Felipe Tolbert MD - 11/28/2024 [place] [id number] TRANSTHORACIC ECHOCARDIOGRAM REPORT Patient Name: ERICA LOPEZ Last Physician: [id number] Tolbert MD,[facility] Study Date: 11/28/2024 Ordering Provider: SE QUIROZ MRN/PID: [id number] Fellow: Nurse: Date of /Age: 5 1940 / Marketing Producer: Riya HANNAH Gender Assigned at F Additional Staff: : Height: 154.94 cm Admit Date: 11/28/2024 Weight: 79.38 kg Admission Status: Outpatient BSA / BMI: 1.78 m2 / 33.07 Department Location: [facility]/ Echo Lab Blood Pressure: 108 /60 mmHg Study Type: TRANSTHORACIC ECHO (TTE) COMPLETE Diagnosis/ICD: Shortness of breath-R06.02 Indication: SOB CPT Codes: Echo Complete w Full Doppler-34653 Patient History: Pertinent History: Dyspnea and HTN. [...] LA Area A2C: 15.2 cm2 LA Major Burton A4C: 5.7 cm LA Major Burton A2C: 4.9 cm LA Volume Index: 25.1 ml/m2 RIGHT ATRIUM: Normal Ranges: RA Vol A4C: 40.9 ml (8.3-19.5ml) RA Vol Index A4C: 22.9 ml/m2 RA Area A4C: 16.2 cm2 RA Major Burton A4C: 5.4 cm AORTA MEASUREMENTS: Normal Ranges: [...] 1.0 m/s (0.6-0.9m/s) PV Max P.9 mmHg [id number] Felipe Tolbert MD, FACC Electronically signed on [...] left ventricular wall thickness. Authorizing ProviderResult TypeResult StatusLeanna Quiroz [facility] ECHO PROCEDURESFinal ResultPerforming OrganizationAddressCity/State/ZIP CodePhone Number [facility] * Pulmonary Stress Test (6 Min. Walk) (11/28/2024 12:50 PM EDT)Specimen (Source) Anatomical Location / LateralityCollection Method / VolumeCollection Time Received Time11/28/2024 12:46 PM EDT11/28/2024 12:46 PM EDT Narrative Authorizing ProviderResult TypeResult StatusLeanna Quiroz [facility]FT ORDERABLESFinal ResultPerforming OrganizationAddressCity/State/ZIP CodePhone Number [facility] * Thyroid Stimulating Hormone (07/25/2024 12:25 PM EDT)ComponentValueRef Range Test MethodAnalysis TimePerformed AtPathologist SignatureTSH0.610.40 - 4.50 mIU/LQuest Blowout Boutique [facility] CenterSpecimen (Source)Anatomical Location / LateralityCollection Method / VolumeCollection TimeReceived Time BloodVenous blood specimen / Skcrcaz1107/25/2024 12:25 PM EDT07/25/2024 12:26 PM EDT Narrative [facility] [place] - 07/26/2024 7:53 AM EDT FASTING:NO FASTING: NO Authorizing ProviderResult TypeResult StatusLeanna Quiroz [facility] BLOOD ORDERABLESFinal ResultPerforming OrganizationAddressCity/State/ZIP CodePhone Number VO[facility] [place] [address] [facility], [address] [place] [address] * (ABNORMAL) Hemoglobin A1C (07/25/2024 12:25 PM EDT)ComponentValueRef RangeTest MethodAnalysis TimePerformed AtPathologist SignatureHEMOGLOBIN A1c5.9(H)<5.7 % [facility] HospitalComment: For someone without known diabetes, a [...] diagnosis of diabetes for children. eAG (mg/dL)123mg/dLQuest [facility] HospitaleAG (mmol/L)6.8 mmol/LQuest [facility] HospitalSpecimen (Source)Anatomical Location / LateralityCollection Method / VolumeCollection TimeReceived TimeBlood Venous blood specimen / Margczj1607/25/2024 12:25 PM EDT07/25/2024 12:26 PM EDT Narrative [facility] - 07/26/2024 7:53 AM EDT FASTING:NO FASTING: NO Authorizing ProviderResult TypeResult StatusJennshai Quiroz [facility] BLOOD ORDERABLESFinal ResultPerforming OrganizationAddressCity/State/ZIP CodePhone Number [place] [id number] [facility], [address] [place] [phone] * (ABNORMAL) Lipid Panel (07/25/2024 12:25 PM EDT)ComponentValueRef RangeTest MethodAnalysis TimePerformed AtPathologist SignatureCHOLESTEROL, KAAGG195<200 mg/dLSouthwood Psychiatric HospitalHDL XFPYFWSLKUU13(L)> OR = 50 mg/dLSouthwood Psychiatric HospitalTRIGLYCERIDES283(H)<150 mg/dL [facility] HospitalComment: If a non-fasting specimen was collected, consider repeat triglyceride testing on a fasting specimen if clinically indicated. Kiesha et al. J. of Clin. Lipidol. 2015;9:129-169. LDL-XTIDMXXHROV36ca/dL (calc)[facility] Comment: Reference range: <100 Desirable range <100 mg/dL for primary prevention; <70 mg/dL for patients with CHD or diabetic patients with > or = 2 CHD risk factors. LDL-C is now calculated using the New calculation, which is a validated novel method providing better accuracy than the Friedewald equation in the estimation of LDL-C. Jesse SS et al. NINFA. 2013;310(19): 9969-2936 (http://education.Finario/faq/UWF446) CHOL/HDLC RATIO4.5<5.0 (calc)[facility] HospitalNON HDL LBDEQXUDNBL488(H)<130 mg/dL (calc)[facility] Comment: For patients with diabetes plus 1 major ASCVD risk factor, treating to a non-HDL-C goal of <100 mg/dL (LDL-C of <70 mg/dL) is considered a therapeutic option. Specimen (Source)Anatomical Location / LateralityCollection Method / Volume Collection TimeReceived TimeBloodVenous blood specimen / Txcmlye9507/25/2024 12:25 PM EDT07/25/2024 12:26 PM EDT Narrative [facility] - 07/26/2024 7:53 AM EDT FASTING:NO FASTING: NO Authorizing ProviderResult TypeResult StatusJennshai [facility] BLOOD ORDERABLESFinal ResultPerforming OrganizationAddressCity/State/ZIP CodePhone Number [facility] [address] [phone] from Last 3 Months or Most Recently Relevant to Health Maintenance Insurance Care Teams Team MemberRelationshipSpecialtyStart DateEnd Date Leanna Quiroz MD [address] [place] [phone] PCP - GeneralFamily Medicine05/19/24
[2025-02-12] MEDS: LOSARTAN POTASSIUM 50 MG TABLET PO (09:07)
[2025-02-12] MEDS: PAROXETINE HCL 20 MG TABLET PO (09:08)
[2025-02-12] MEDS: ASPIRIN 81 MG TABLET.DR PO (09:08)
[2025-02-12] MEDS: BUSPIRONE HCL 10 MG TABLET PO (09:08)
[2025-02-12] MEDS: ENOXAPARIN SODIUM 40 MG/0.4 ML SYRINGE SUBQ (09:09)
[2025-02-12] MEDS: ACETAMINOPHEN 325 MG TABLET 650 MG PO (09:21)
--- NOTE | 2025-02-12 09:50 | CM.NOTE ---
Rounds made with Dr. Culver, discussed with pt and son discharge to home today. Dr. Culver did also speak with pt and son regarding pt's weakness and safety at home. Pt and son continue to refuse skilled therapy at discharge. Pt will discharge to home and f/u with PCP. Pt will continue to follow with pain management for chronic pain.
--- NOTE | 2025-02-12 11:24 | OT.DAILY ---
Occupational Therapy Daily Note OT Inpatient Daily Visit Note Start: 02/10/25 10:41 Freq: Status: Active Protocol: Document 02/12/25 11:16 [id number] (Rec: 02/12/25 11:24 [id number]) OT Visit Details Time In/Time Out Time In 10:40 Time Out 11:14 OT Treatment Plan Subjective Subjective Pt reports mild dizziness upon arrival, awake and alert . States she is ready to go home . Objective Objective Vpowcr-rg-ngf Mod A adjusting BLEs and trunk positioning. Reports mild dizziness when sitting up. Completed mbm-sl-sckyd with Min A to walker. Ambulatory to bathroom, Max A donning LB garments for toileting. Successful BM, Max A terrence-care. Good standing tolerance at sink to complete oral hygiene, 1-2mins. Good sequencing with oral hygiene. Pt responds well to verbal cues using walker, establishing a functional gait pattern. Pt requesting to go back to bed due to fatigue and back pain. Required 1x rest break from bathroom to bed. Completed cmaez-hs-fbi on EOB with 2- 4VCs for appropriate positioning. Mod A qvs-dy-hjuxhv to get into bed. Able to maintain airway w/o SOB on 3L NC. Assessment Assessment Pt tolerated treatment well. Agreeable and cooperative with all tasks. Remains eager to return home with son. Pt was intermittently closing her eyes and falling asleep, easy to wake up with verbal or tactile stimulus . Patient Education Patient Education Educated on posture when standing at sink, and requesting assist if needed. Plan Plan Continue OT POC. Short Term Goals STG 1 Patient will be able to complete bed mobility and chair transfers with min assist or better to improve access to ADL's. STG 2 Patient will be able to ambulate to the bathroom using WW with CGA, and complete grooming/oral care with SBA or better using good safety. STG 3 Patient will be educated to adaptive equipment for LB dressing to improve her independence with LB ADL's. STG 4 Patient will increase bilateral UE strength 1/2 grade or more to improve ADL skills. OT Patient Care Manager Timed Codes Self-Longterm 34 Management minutes ( minutes) Self-Longterm 2 Management units
--- NOTE | 2025-02-12 12:33 | SWNOTE1 ---
Pt is being discharge home today with [facility]. SW faxed dc med rec, CRF, and PT/OT notes from today. Pt's son and pt still refusing SNF and want her to go home with .
--- NOTE | 2025-02-12 12:38 | PM.DS1 ---
DS: Providers Provider Date of admission: 02/11/25 14:15 Primary care physician: ANDREA QUIROZ MD Consults: 02/10/25 09:25 Occupational Therapy Eval and Treat Routine Reason for consultation: eval and treat Physical Therapy Eval and Treat Routine Reason for consultation: eval and treat Discharging clinician: LEANNE REYES Anticipated date of discharge: 02/12/25 DS: Diagnosis Discharge Diagnosis (1) Polypharmacy: (2) Acute UTI: (3) Generalized weakness: (4) Lumbar stenosis with neurogenic claudication: (5) Hypothyroid: (6) Fall: DS: Summary Hospital Course Hospital Course: Miss Lopez is an 84-year-old female who was 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 She recently tried to take double the dose of her muscle relaxers and attempts to help relieve her chronic back and right hip pain. She is on baclofen 5 mg every 8 hours, she attempted to take 10 mg. She was also found to have a urinary tract infection, her metabolic encephalopathy is likely secondary to polypharmacy and infectious etiology. Her baclofen was held on admission, she was started on antibiotics for her urinary tract infection. The following morning her mentation improved greatly and she is back to her baseline per the son, she has been on baclofen chronically for some time now, I did resume it at her typical dose of 5 mg every 8 hour, she received 1 dose of this and she became very lethargic again. I stop this indefinitely. I did have a long talk with the son about further holding of the baclofen upon discharge until she follows up with pain management. He is agreeable. The patient also had a fall in the bathroom February 11 in the evening, she was instructed to let the nurse know when she was finished using the restroom and she attempted to get up and take care of things herself. She did fall hit the back of her head. Her neurological exam was unchanged, there is no bleeding noted from her head, repeat CT scan without contrast was ordered and was negative. The patient was subsequently discharged in the hospital the morning of the with a prescription to finish her antibiotics for another 2 days for 5 days total. Of note, the son is concerned about ing, he is currently adding on a small studio apartment for to living in his house, and instructed him to keep many pictures of her and her family throughout the new apartment for some familiarity as well as finish it with things she is used to. He is agreeable for this and said he is looking forward to getting her stuff out of storage to furnish it with. Recommend continue to hold baclofen, I talked about alternating Tylenol and ibuprofen for pain management as she did receive a dose of Toradol here which helped her pain significantly. She will follow-up with pain management. Time Spent with Patient Time attestation: Total time spent providing and/or coordinating discharge services: Exam Narrative Exam Narrative: General: Awake alert, no acute distress, she is laying in bed with head of bed elevated for 20 degrees, much more awake today. HEENT: Moist mucous membranes, age-related mental changes noted CVS: regular rate and rhythm, no murmurs or gallops Respiratory: clear to auscultation bilaterally, no wheezing or crackles, symmetric expansion Back: No tenderness to palpation over spinous process GI: soft, nondistended, nontender, positive bowel sounds with no organomegaly Extremity: moves all extremities, no restrictions of movements, no calf tenderness, no edema. There are 2 small healing laparoscopic incisions from her prior surgery. No drainage, no erythema. Very minor pain to palpation in the surrounding region. Neuro: AOx3, CN II-VII intact. Moves all extremities in all planes of motion. Constitutional Vital Signs, click to edit/add: Last Vital Signs Temp 98 F 02/12/25 07:58 Pulse 91 H 02/12/25 10:00 Resp 14 02/12/25 08:00 BP 146/73 H 02/12/25 09:08 Pulse Ox 96 02/12/25 07:58 O2 Del Method Nasal Cannula 02/12/25 07:58 O2 Flow Rate 3 02/12/25 07:58 DS: Data Data Completed and Pending Labs on day of discharge: Preliminary micro results at discharge 02/10/25 05:30 Blood Culture Result 2 - Preliminary Blood NO GROWTH AT 36-48 HOURS. FINAL TO FOLLOW. 02/10/25 05:16 Blood Culture Result 1 - Preliminary Blood NO GROWTH AT 36-48 HOURS. FINAL TO FOLLOW. 02/10/25 00:01 Urine Culture - Preliminary Urine,Clean Catch Pending - Specimen sent to [facility] Discharge Plan Discharge Disposition: Home Health Service Discharge Medications: New ibuprofen [Motrin IB] 200 mg capsule 200 mg PO Q8H PRN (Reason: back pain) 30 Days Qty: 90 0RF acetaminophen [Tylenol] 325 mg Tablet 650 mg PO Q6H PRN (Reason: Pain or fever) 30 Days Qty: 120 0RF amoxicillin-pot clavulanate [Augmentin] 500-125 mg tablet 1 tab PO BID Qty: 4 0RF Continued losartan 50 mg tablet 50 mg PO BID levothyroxine [Synthroid] 100 mcg tablet 100 mcg PO DAILY polyethylene glycol 3350 [Miralax] 17 gram/dose powder 17 g PO DAILY PRN (Reason: constipation) multivitamin Tablet 1 tab PO DAILY nifedipine 60 mg tablet extended release 60 mg PO DAILY paroxetine HCl 20 mg tablet 20 mg PO DAILY propranolol 120 mg capsule,extended release 24 hr 120 mg PO BID calcium phos,dibas-vitamin D3 77-400 mg-unit tablet 1 tab PO DAILY buspirone 10 mg tablet 10 mg PO DAILY gabapentin 100 mg capsule 200 mg PO Q8H Discontinued baclofen 10 mg tablet 10 mg PO TID PRN (Reason: back pain) Print Language: Filipino Patient Instructions: Acetaminophen (By mouth), Ibuprofen (By mouth), Amoxicillin/Clavulanate Potassium (By mouth), Fall Prevention (DC), Urinary Tract Infection in Older Adults (DC) 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 [facility] should contact within 48 hours of discharge. If you do not hear from [facility] within that time frame please call [phone]. Forms: Portal Instructions Follow Up Appointments: Dr. Quiroz February 24 at 10:00a [phone] option 2 Discharge Date/Time: 02/12/25 12:26
--- NOTE | 2025-02-13 12:47 | NUTR.NU ---
Pt denies weight loss or appetite changes. PO intakes of regular diet are generally good and appear to meet her estimated nutrient requirements. Encourage foods w/high quality PRO at every meal to aid wound healing and alleviate edema.
--- NOTE | 2025-02-13 13:25 | CM.DCFOLLOWU ---
Person spoke with: The patient's son How are you feeling? She was currently sleeping but has been having some nausea. The patient's PCP prescribed something for her but to early to tell if the medication is helping. How is your pain? She was currently sleeping Did you understand your discharge instructions? Yes Do you have any questions about your discharge instructions? No Were you given any prescriptions at discharge? Yes Were you able to get your prescriptions filled? Yes Do you understand how to take your medications as ordered? Yes Do you have any questions about your follow up appointment and do you plan to keep your follow up appointment? No questions and they plan on keeping the follow up appt Is there anything else that you would like to discuss? No Questions/Comments/Concerns/Other:
--- NOTE | 2025-02-16 10:39 | CM.NOTE ---
Called pt's PCP Leanna Quiroz office for final urine culture with susceptibility, faxed to [phone]
== END 2025-02-12 12:26 | disposition home health service (06) | DRG 689 ==
LOC: ER 02-10 00:39 → MS 02-12 10:25
PROVIDERS: Admitting Provider Internal Medicine; Emergency Provider Internal Medicine; PCP Family Medicine; Visit Provider Internal Medicine
DX: N39.0 Urinary tract infection, site not specified (principal); G92.8 Other toxic encephalopathy; Z79.899 Other long term (current) drug therapy; R53.1 Weakness; M48.062 Spinal stenosis, lumbar region with neurogenic claudication; E89.0 Postprocedural hypothyroidism; Z79.890 Hormone replacement therapy; G89.29 Other chronic pain; Z90.710 Acquired absence of both cervix and uterus; Z66 Do not resuscitate; M19.90 Unspecified osteoarthritis, unspecified site; W18.39XA Other fall on same level, initial encounter; Y93.89 Activity, other specified; Y92.231 Patient bathroom in hospital as the place of occurrence of the external cause; Z04.3 Encounter for examination and observation following other accident
CPT/HCPCS: 36415; 70450; 71045; 80048; 80053; 81001; 83605; 83735; 83874; 84100; 84443; 84484; 85025; 87040; 87086; 87088; 87186; 93005; 94761; 96361; 96365; 96366; 96372; 96375; 96376; 97161; 97165; 97530; 97535; 99285; G0378; J0696; J1650; J1885; J2405

== ENCOUNTER 2025-02-15 22:37 | Emergency (ER) | payer MEDICARE, BC, SELFPAY ==
[2025-02-15 22:41] VITALS: BP 134/66; PULSE 66; TEMP 36.7; O2SAT 88; BMI 32.0
--- NOTE | 2025-02-15 22:54 | ECG_ITS ---
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 Measurements Intervals Waterproof Rate: 61 P: 43 ID: 160 QRS: 6 QRSD: 80 T: 22 QT: 418 QTc: 422 Interpretive Statements 1100 Sinus rhythm 1470 with occasional supraventricular premature complexes 9140 abnormal rhythm ECG Compared to ECG 02/10/2025 00:47:39 No significant changes Electronically Signed On 02-16-2025 5:53:41 EST by JOSEPH AVALOS M.D.
--- NOTE | 2025-02-15 22:54 | XR_ITS ---
[facility] [place] [id number] Patient Name: CEDRICK LEGER MRN: [id number] date: 1940 Sex: F Assigned Patient Location: ER Current Patient Location: Accession/Order Number: [id number] Exam Date: 02/15/2025 23:30 Report Date: 02/16/2025 08:13 At the request of: JASON LEE MD Procedure: XR chest 1V PORTABLE AP ERECT CHEST 2311 hours CLINICAL HISTORY: Dizziness COMPARISON: 02/10/2025 The heart is within normal limits for size. There is no vascular congestion. There is minor basilar atelectasis or scarring. No developing consolidation is seen. There is no effusion or pneumothorax. The osseous structures are intact. XR/XR chest 1V IMPRESSION: NO ACUTE FINDINGS Impression dictated by: Katerina Cat M.D. 02/16/2025 8:13 AM Dictation Location: [place] [address] Electronically authenticated by: [id number] Y Date: 02/16/2025 08:13
--- NOTE | 2025-02-15 22:54 | ED.GENADUL1 ---
HPI HPI - General Adult General Chief complaint: Nausea/Vomiting/Diarrhea Stated complaint: Anxiety Time Seen by Provider: 02/15/25 22:38 History of Present Illness HPI narrative: 84-year-old female presented to the emergency department for nausea and dizziness. She had been admitted to this hospital for a UTI. 5 days ago while she was in the hospital she fell and hit the back of her head and had an apparently negative CAT scan. She was dizzy and nauseous before she fell but the fall seems to have aggravated it. No fever or vomiting. She always has diarrhea. She does not complain to me of chest pain or palpitations. The paramedics gave her Zofran and route and she feels better. Related Data Home Medications ?Medication ?Instructions ?Recorded ?Confirmed calcium phosphate,dibasic 77 1 tab PO DAILY 09/04/24 02/15/25 mg-vitamin D3 400 unit tablet levothyroxine 100 mcg tablet 100 mcg PO DAILY 09/04/24 02/15/25 (Synthroid) losartan 50 mg tablet 50 mg PO BID 09/04/24 02/15/25 multivitamin 1 tab PO DAILY 09/04/24 02/15/25 nifedipine 60 mg tablet,extended 60 mg PO DAILY 09/04/24 02/15/25 release paroxetine HCl 20 mg tablet 20 mg PO DAILY 09/04/24 02/15/25 polyethylene glycol 3350 17 17 g PO DAILY PRN constipation 09/04/24 02/15/25 gram/dose oral powder (Miralax) propranolol 120 mg capsule,24 120 mg PO BID 09/04/24 02/15/25 hr,extended release buspirone 10 mg tablet 10 mg PO DAILY 10/30/24 02/15/25 gabapentin 100 mg capsule 200 mg PO Q8H 10/30/24 02/15/25 diazepam 10 mg tablet 10 mg PO DAILY 02/15/25 02/15/25 ondansetron 4 mg disintegrating 4 mg translingual Q6H PRN nausea 02/15/25 02/15/25 tablet and vomiting scopolamine base 1 mg over 3 days 02/15/25 transdermal patch Previous Rx's ?Medication ?Instructions ?Recorded acetaminophen 325 mg tablet 650 mg (2 x 325 mg) PO Q6H PRN 02/12/25 (Tylenol) Pain or fever 30 days #120 tabs ibuprofen 200 mg capsule (Motrin 200 mg PO Q8H PRN back pain 30 02/12/25 IB) days #90 caps Allergies Allergy/AdvReac Type Severity Reaction Status Date / Time morphine Allergy Mild Unknown Verified 02/15/25 22:47 Opioid HPI Opioid Management Most Recent Opioid Data: Last Pain Scale 5 02/12/25, 12:00 Last Pain Intensity 3 02/12/25, 11:58 Last Pain Assessment 02/12/25, 12:00 Last MAR Pain Assessment 02/12/25, 10:21 Last ORT Total Score 0 02/10/25, 03:30 Last ORT Risk Category Low Risk 02/10/25, 03:30 Review of Systems ROS Narrative A ten point review of systems is negative except as noted above. [facility] Medical History (Updated 02/16/25 @ 00:57 by Darrin Stratton MD) Fall ?W19.XXXA - Unspecified fall, initial encounter (ICD-10) Polypharmacy ?Z79.899 - Other group home (current) drug therapy (ICD-10) Hypothyroid ?E03.9 - Hypothyroidism, unspecified (ICD-10) Acute UTI ?N39.0 - Urinary tract infection, site not specified (ICD-10) Generalized weakness ?R53.1 - Weakness (ICD-10) Lumbar stenosis with neurogenic claudication ?M48.062 - Spinal stenosis, lumbar region with neurogenic claudication (ICD-10) Low back pain ?M54.50 - Low back pain, unspecified (ICD-10) Osteoarthritis ?M19.90 - Unspecified osteoarthritis, unspecified site (ICD-10) Glaucoma ?H40.9 - Unspecified glaucoma (ICD-10) Hypertension ?I10 - Essential (primary) hypertension (ICD-10) Surgical History H/O thyroidectomy ?Z98.890 - Other specified postprocedural states (ICD-10) ?Z90.89 - Acquired absence of other organs (ICD-10) H/O: hysterectomy ?Z90.710 - Acquired absence of both cervix and uterus (ICD-10) Social History (Updated 02/10/25 @ 04:00 by Clare Rosario RN) Within the past year, how often did you have a drink containing alcohol: never Score interpretation: A score less than 3 is consistent with normal alcohol consumption. Highest level of school completed/degree received: high school graduate Are you now , , , , never or living with a partner: In a typical week, how many times do you talk on the telephone with family, friends, or neighbors: 3 or more times per week How often do you get together with friends or relatives: 3 or more times per week Little interest or pleasure in doing things: not at all Feeling down, depressed, or hopeless: not at all Feel stressed/tense/nervous/anxious/difficulty sleeping: not at all Gender Identity: female Exam Narrative Exam Narrative: Nurses note and vital signs reviewed General:The patient appears in no apparent distress. Skin:Warm, dry, no pallor noted.There is no rash noted. Head:Normocephalic, atraumatic Eye: Normal conjunctiva, no drainage Ears, Nose, Mouth, and Throat: oral mucosa is moist. Nares patent. Cardiovascular:Regular Rate and Rhythm, not tachycardic Respiratory:Patient is in no distress, no accessory muscle use, lungs are clear to auscultation, no wheezing, rales or rhonchi Back:non-tender GI: Soft and nontender Musculoskeletal: The patient has no evidence of calf tenderness, no pitting edema, symmetrical pulses noted bilaterally Neurological:A&O normal speech, mildly tremorous Psychiatric:Cooperative Constitutional Vital Signs, click to edit/add: Last Vital Signs Temp 98.0 F 02/15/25 22:41 Pulse 66 02/15/25 22:41 Resp 18 02/15/25 22:41 BP 134/66 02/15/25 22:41 Pulse Ox 96 02/15/25 23:20 O2 Del Method Nasal Cannula 02/15/25 23:20 O2 Flow Rate 3 02/15/25 23:20 Course Vital Signs Vital signs: Vital Signs Temperature 98.0 F 02/15/25 22:41 Pulse Rate 66 02/15/25 22:41 Respiratory Rate 18 02/15/25 22:41 Blood Pressure 134/66 02/15/25 22:41 Pulse Oximetry 88 L 02/15/25 22:41 Oxygen Delivery Method Room Air 02/15/25 22:41 Temperature 98.0 F 02/15/25 22:41 Pulse Rate 66 02/15/25 22:41 Respiratory Rate 18 02/15/25 22:41 Blood Pressure 134/66 02/15/25 22:41 Pulse Oximetry 96 02/15/25 23:20 Oxygen Delivery Method Nasal Cannula 02/15/25 23:20 Oxygen Delivery Flow Rate 3 02/15/25 23:20 Medical Decision Making MDM Narrative Medical decision making narrative: The patient feels better now and is requesting discharge home. She felt better after being given IV Zofran by the paramedics and she has Zofran at home. Her workup here is negative. Note is made of sinus mucosal disease but this appears to be chronic. The rest of her workup is negative as well with urine culture pending. She has 5-10 white cells in her urine and 2-5 red cells. She is not currently on an antibiotic but recently was. Treatment diagnosis and follow-up were discussed with the patient. Differential Diagnosis Differential Diagnosis: Dehydration, anemia, nausea Lab Data Lab results reviewed: Yes I reviewed the patient's lab results Labs: Lab Results 02/15/25 02/15/25 Range/Units 22:55 23:10 WBC 11.6 H (4.0-11.0) 10^3/uL RBC 3.61 L (4.20-5.40) 10^6/uL Hgb 12.3 (12.0-16.0) g/dL Hct 37.9 (36.0-48.0) % MCV 105.0 H (81.0-99.0) fL MCH 34.1 H (26.7-34.0) pg MCHC 32.5 (29.9-35.2) g/dL RDW 14.5 (11.0-15.0) % Plt Count 350 (150-450) 10^3/uL MPV 9.5 (9.5-13.5) fL Neut % (Auto) 66.8 (43.0-75.0) % Lymph % (Auto) 20.9 (20.5-60.0) % [place] % (Auto) 10.1 (1.7-12.0) % Eos % (Auto) 1.1 (0.9-7.0) % Baso % (Auto) 0.4 (0.2-2.0) % Neut # (Auto) 7.8 H (1.4-6.5) 10^3/uL Lymph # (Auto) 2.4 (1.2-3.8) 10^3/uL [place] # (Auto) 1.2 H (0.3-0.8) 10^3/uL Eos # (Auto) 0.1 (0.0-0.7) 10^3/uL Baso # (Auto) 0.1 (0.0-0.1) 10^3/uL Abs Immat Gran (auto) 0.08 H (0.00-0.03) 10^3/uL Imm/Tot Granulo (auto) 0.7 H (0.0-0.5) % Sodium 143 (136-145) mmol/L Potassium 3.7 (3.5-5.1) mmol/L Chloride 102 (98-107) mmol/L Carbon Dioxide 38.3 H (21.0-32.0) mmol/L Anion Gap 6.4 BUN 20.0 H (7.0-18.0) mg/dL Creatinine 0.97 (0.55-1.02) mg/dL Est GFR ( Amer) >60 (>=60 mL/min/1.73m^2) Est GFR (Non-Af Amer) 54 L (>=60 mL/min/1.73m^2) BUN/Creatinine Ratio 20.6 Glucose 120 H (74-106) mg/dL Calcium 9.9 (8.5-10.1) mg/dL Troponin I High Sens 9.1 (4.0-51.3) pg/mL Urine Color Lt. yellow (YELLOW) Urine Clarity Clear (CLEAR) Urine pH 6.0 (5.0-9.0) Ur Specific [place] <=1.005 A (1.005-1.025) Urine Protein Negative (NEG/TRACE) mg/dL Urine Glucose (UA) Negative (NEGATIVE) mg/dL Urine Ketones Negative (NEGATIVE) mg/dL Urine Occult Blood Trace-i (NEGATIVE) Urine Nitrite Negative (NEGATIVE) Urine Bilirubin Negative (NEGATIVE) Urine Urobilinogen 0.2 (0.2-1.0) EU/dL Ur Leukocyte Esterase Trace A (NEGATIVE) Urine RBC 2-5 A (0-2) #/HPF Urine WBC 5-10 A (NONE SEEN) #/HPF Ur Squamous Epith Cells Rare (NONE/RARE) #/LPF Ur Transition Epith Cell Few A (NONE SEEN) #/LPF Urine Crystals None seen (None Seen) #/HPF Urine Bacteria Moderate A (NONE SEEN) #/HPF Urine Casts None seen (NONE SEEN) #/LPF Urine Mucus None seen (NONE SEEN) Ur Culture Indicated? Yes-[facility] Imaging Data Chest x-ray, CT brain: My impression: Chest x-ray my interpretation shows no acute findings Radiologist's impression: CT brain shows no acute intracranial process with extensive facial sinus mucosal disease, this appears similar to prior study. Discharge Plan Discharge Chief Complaint: Nausea/Vomiting/Diarrhea Clinical Impression: Dizziness, Nausea Patient Disposition: Home, Self-Care Time of Disposition Decision: 00:56 Condition: Good Mode of Transportation: Private Vehicle Prescriptions / Home Meds: No Action losartan 50 mg tablet 50 mg PO BID levothyroxine [Synthroid] 100 mcg tablet 100 mcg PO DAILY polyethylene glycol 3350 [Miralax] 17 gram/dose powder 17 g PO DAILY PRN (Reason: constipation) multivitamin Tablet 1 tab PO DAILY nifedipine 60 mg tablet extended release 60 mg PO DAILY paroxetine HCl 20 mg tablet 20 mg PO DAILY propranolol 120 mg capsule,extended release 24 hr 120 mg PO BID calcium phos,dibas-vitamin D3 77-400 mg-unit tablet 1 tab PO DAILY buspirone 10 mg tablet 10 mg PO DAILY gabapentin 100 mg capsule 200 mg PO Q8H ibuprofen [Motrin IB] 200 mg capsule 200 mg PO Q8H PRN (Reason: back pain) 30 Days Qty: 90 0RF acetaminophen [Tylenol] 325 mg Tablet 650 mg PO Q6H PRN (Reason: Pain or fever) 30 Days Qty: 120 0RF diazepam 10 mg tablet 10 mg PO DAILY ondansetron 4 mg tablet,disintegrating 4 mg translingual Q6H PRN (Reason: nausea and vomiting) scopolamine base 1 mg over 3 days patch 3 day Print Language: Tristanian Instructions: Acute Nausea and Vomiting (ED), Dizziness (ED) Referrals: ANDREA GRAY MD [Primary Care Provider] - 1 week
[2025-02-15 22:59] LABS: Hematocrit 37.9 % (36.0-48.0); Hemoglobin 12.3 g/dL (12.0-16.0); Immature Granulocytes Abs Auto 0.08 10^3/uL (0.00-0.03); Immature Granulocytes Pct Auto 0.7 % (0.0-0.5); Lymphocytes Absolute Auto 2.4 10^3/uL (1.2-3.8); Mean Corpuscular HGB Conc 32.5 g/dL (29.9-35.2); Mean Corpuscular Hemoglobin 34.1 pg (26.7-34.0); Mean Corpuscular Volume 105.0 fL (81.0-99.0); Platelet Count 350 10^3/uL (150-450); Red Blood Count 3.61 10^6/uL (4.20-5.40); White Blood Count 11.6 10^3/uL (4.0-11.0)
[2025-02-15 23:15] LABS: Anion Gap 6.4; Blood Urea Nitrogen 20.0 mg/dL (7.0-18.0); Calcium 9.9 mg/dL (8.5-10.1); Carbon Dioxide 38.3 mmol/L (21.0-32.0); Chloride 102 mmol/L (98-107); Estimated GFR (African America >60 (>=60 mL/min/1.73m^2); Estimated GFR (Non-African Ame 54 (>=60 mL/min/1.73m^2); Glucose 120 mg/dL (74-106); Potassium 3.7 mmol/L (3.5-5.1); Sodium 143 mmol/L (136-145)
[2025-02-15 23:20] VITALS: O2SAT 96
[2025-02-15 23:23] LABS: Glucose Urine UA NEGATIVE (NEGATIVE)
[2025-02-15 23:32] LABS: Cast Seen? NONE SEEN #/LPF (NONE SEEN); Crystals Seen? None Seen #/HPF (None Seen); Urine Culture Indicated YES-FRMC
[2025-02-16] MEDS: MECLIZINE HCL 12.5 MG TABLET 25 MG PO (00:45)
[2025-02-16 01:11] VITALS: BP 145/78; PULSE 63; O2SAT 98
--- NOTE | 2025-02-16 01:31 | PC.NURSE ---
When this RN went into patient's room to get her dressed to go home, she stated that she felt much better and was ready to go home. She was not feeling dizzy and was no longer nauseated. I got one last set of vitals and removed her IV. I then had her sit on the edge of the bed to get dressed. She was able to get her own legs over the edge and sit up on her own, which she had not been able to do up to this point due to dizziness. After getting to the edge of the bed, She stopped for a moment and then flopped back onto the bed moaning that the room was spinning and she needed her son to help her. I let her lie there for a moment before telling her she needed to try again. She was able to sit up again and get dresses, but needed her son to assist her, not me. She asked for an emesis bag during the process, but never needed to vomit. Her son was upset that his mother was no better than when they arrived . I reassured him that all of her testing was negative and normal, so there was not any reason for her to be admitted at this time. She was able to stand and pivot into the wheelchair, was laughing and joking. I wheeled her out to the vehicle where she was able to stand and transfer into the car with little assistance. Her son was still upset that she was not being admitted, and I notified Dr. Stratton of this. I told Dr. Stratton that it seemed as though the patient was seeking attention from her son and was embellishing her symptoms.
== END 2025-02-16 01:40 | disposition home or self-care (01) ==
PROVIDERS: Emergency Provider Emergency Medicine; PCP Family Medicine
DX: R42 Dizziness and giddiness (principal); R11.0 Nausea; Z87.440 Personal history of urinary (tract) infections; R82.998 Other abnormal findings in urine
CPT/HCPCS: 36415; 70450; 71045; 80048; 81001; 84484; 85025; 87086; 93005; 99285